=== PATIENT | female | born 1975 | race Caucasian/White ===

== ENCOUNTER 2019-02-17 14:46 | Inpatient (IN) | payer MEDICAID ==
[2019-02-17] MEDS ORDERED: Ketorolac 30 MG/ML SDV IM ONE (15:10)
[2019-02-17] MEDS ORDERED: Ondansetron 4 MG Tab.DIS PO ONE (15:10)
[2019-02-17] MEDS ORDERED: Sodium Chloride 0.9% 10 ML Syringe FLUSH PRN ×2 (15:12→15:48)
[2019-02-17] MEDS ORDERED: Ketorolac 30 MG/ML SDV IVPUSH ONE (15:12)
[2019-02-17] MEDS ORDERED: Ondansetron 4 MG/2 ML SDV IVPUSH ONE (15:12)
[2019-02-17] MEDS ORDERED: Sodium Chloride 0.9% 1,000 ML IV SCH (15:15)
[2019-02-17] MEDS ORDERED: fentaNYL 100 MCG/2 ML SDV IVPUSH ONE ×3 (15:39→17:24)
[2019-02-17] MEDS: Piperacillin/Tazobactam 3.375 GM in Sodium Chloride 0.9% 50 ML IV SCH ×2 (16:08→21:45)
--- NOTE | 2019-02-17 16:50 | CRLCT ---
INDICATION: Right flank pain TECHNIQUE: CT abdomen and pelvis without contrast. COMPARISON: None FINDINGS: Lower chest: Unremarkable. Liver: Unremarkable. Spleen: Unremarkable. Pancreas: Unremarkable. Gallbladder and bile ducts: Cholecystectomy Kidneys: Unremarkable. No kidney or ureteral stones and no hydronephrosis. Adrenal glands: Unremarkable. GI tract: Diffuse colonic fecal retention. Appendix is not definitely demonstrated. Vascular structures: Unremarkable. Lymph nodes: Unremarkable. Miscellaneous: Unremarkable. No free air or significant free fluid. Pelvic Organs: Unremarkable. Bones: Unremarkable for age. IMPRESSION: No urinary tract stones or hydronephrosis. Diffuse colonic fecal retention. Cholecystectomy. Dictated by Carlos Staples MD @ 02/17/2019 4:48:32 PM Please note that all CT scans at this facility use dose modulation, iterative reconstruction, and/or weight-based dosing when appropriate to reduce radiation dose to as low as reasonably achievable. Dictated by: Carlos Staples MD @ 02/17/2019 16:48:40 (Electronically Signed)
[2019-02-17] MEDS ORDERED: Acetaminophen 325 MG Tab PO ONE (17:03)
[2019-02-17] MEDS ORDERED: Lactated Ringers 1,000 ML IV ONE (17:04)
--- NOTE | 2019-02-17 17:04 | EDM.PDOC ---
ED HPI GENERAL MEDICAL PROBLEM - General Chief Complaint: Flank Pain Stated Complaint: MAYBE A KIDNEY STONE Time Seen by Provider: 02/17/19 15:07 Source of Information: Reports: Patient, Family, RN Notes Reviewed History Limitations: Reports: No Limitations - History of Present Illness INITIAL COMMENTS - FREE TEXT/NARRATIVE: 43-year-old female presents the emergency department with a complaint of right flank pain, she states a couple days prior she was having urinary tract symptomology consistent with an infection which she has had in the past unfortunately due to the weather she did not seek treatment, then this morning increasing pain in the right flank as well as fever. She has had kidney stones in the past concerned this may be another kidney stone Flank Pain Score (Numeric/FACES): 10 - Related Data Allergies Allergy/AdvReac Type Severity Reaction Status Date / Time Sulfa (Sulfonamide Allergy Other Verified 02/17/19 16:11 Antibiotics) Home Meds: Home Meds Cetirizine [ZyrTEC] 10 mg PO DAILY PRN 11/27/15 [History] Norgestimate-Ethinyl Estradiol [Ortho Tri-Cyclen 28 Tablet] 1 tab PO DAILY 11/26 [History] SUMAtriptan [Imitrex] 100 mg PO DAILY PRN 11/27/15 [History] Topiramate [Topamax] 300 mg PO BEDTIME 11/27/15 [History] buPROPion [Wellbutrin XL] 300 mg PO DAILY 11/27/15 [History] HYDROmorphone HCl [Dilaudid] 2 mg PO Q4H PRN #30 tablet 11/28/15 [Rx] Ondansetron [Zofran ODT] 4 mg PO Q4H PRN #12 tab.dis 11/28/15 [Rx] DULoxetine [Cymbalta] 30 mg PO DAILY 02/17/19 [History] Montelukast [Singulair] 10 mg PO DAILY 02/17/19 [History] Past Medical History HEENT History: Reports: Allergic Rhinitis, Other (See Below) Other HEENT History: migraines, history of 2 concussions Respiratory History: Reports: Asthma Genitourinary History: Reports: Renal Calculus Musculoskeletal History: Reports: Other (See Below) Other Musculoskeletal History: stress fractures on ankles and knees Neurological History: Reports: Migraines Psychiatric History: Reports: Depression - Infectious Disease History Infectious Disease History: Reports: Chicken Pox - Past Surgical History GI Surgical History: Reports: Appendectomy, Cholecystectomy Social & Family History - Tobacco Use Smoking Status *Q: Never Smoker - Caffeine Use Caffeine Use: Reports: Coffee, Soda, Tea - Recreational Drug Use Recreational Drug Use: No ED ROS GENERAL - Review of Systems Review Of Systems: See Below Constitutional: Reports: Fever, Chills HEENT: Reports: No Symptoms Respiratory: Reports: No Symptoms Cardiovascular: Reports: No Symptoms GI/Abdominal: Reports: Nausea, Vomiting : Reports: Dysuria, Flank Pain Musculoskeletal: Reports: No Symptoms Skin: Reports: No Symptoms Neurological: Reports: No Symptoms ED EXAM, GI/ABD - Physical Exam Exam: See Below Exam Limited By: No Limitations General Appearance: Alert, Mild Distress Respiratory/Chest: No Respiratory Distress, Lungs Clear, Normal Breath Sounds, No Accessory Muscle Use, Chest Non-Tender Cardiovascular: Regular Rate, Rhythm, No Murmur GI/Abdominal Exam: Soft, Non-Tender Back Exam: Normal Inspection, Full Range of Motion, CVA Tenderness (R). No: Decreased Range of Motion, Muscle Spasm, Paraspinal Tenderness Course - Vital Signs Last Recorded V/S: Last Vital Signs Temp 101.9 F H 02/17/19 15:07 Pulse 114 H 02/17/19 16:44 Resp 16 02/17/19 15:07 BP 102/74 02/17/19 16:44 Pulse Ox 100 02/17/19 15:07 - Orders/Labs/Meds Orders: Active Orders 24 hr Category Date Time Status Peripheral IV Care [RC] . DIRECTED Care 02/17/19 15:12 Active Peripheral IV Care [RC] . DIRECTED Care 02/17/19 15:48 Active Vital Signs [RC] Q1H Care 02/17/19 15:47 Active CULTURE BLOOD [BC] Urgent Lab 02/17/19 16:45 Received CULTURE BLOOD [BC] Urgent Lab 02/17/19 16:50 Received CULTURE URINE [RM] Stat Lab 02/17/19 17:00 Received CULTURE URINE [RM] Urgent Lab 02/17/19 17:23 Stop Req Lactated Ringers [Ringers, Lactated] 1,000 ml Med 02/17/19 17:04 Active IV BOLUS Piperacillin/Tazobactam [Zosyn] 3.375 gm Med 02/17/19 16:00 Active Sodium Chloride 0.9% [Normal Saline] 50 ml IV Q6H Sodium Chloride 0.9% [Normal Saline] 1,000 ml Med 02/17/19 15:15 Active IV ASDIRECTED Sodium Chloride 0.9% [Saline Flush] Med 02/17/19 15:12 Active 10 ml FLUSH ASDIRECTED PRN Sodium Chloride 0.9% [Saline Flush] Med 02/17/19 15:48 Active 10 ml FLUSH ASDIRECTED PRN Blood Culture x2 Reflex Set [OM.PC] Urgent Oth 02/17/19 15:47 Ordered Peripheral IV Insertion Adult [OM.PC] Urgent Oth 02/17/19 15:12 Ordered Peripheral IV Insertion Adult [OM.PC] Urgent Oth 02/17/19 15:48 Ordered Medication Orders Sodium Chloride (Normal Saline) 1,000 mls @ 999 mls/hr IV ASDIRECTED MAGDIEL Last Admin: 02/17/19 15:20 Dose: 999 mls/hr Piperacillin Sod/Tazobactam (Sod 3.375 gm/ Sodium Chloride) 50 mls @ 100 mls/ hr IV Q6H [facility] Last Admin: 02/17/19 16:08 Dose: 100 mls/hr Lactated Ringer's (Ringers, Lactated) 1,000 mls @ 999 mls/hr IV BOLUS ONE Stop: 02/17/19 18:04 Last Admin: 02/17/19 17:06 Dose: 999 mls/hr Sodium Chloride (Saline Flush) 10 ml FLUSH ASDIRECTED PRN PRN Reason: Keep Vein Open Last Admin: 02/17/19 15:20 Dose: 10 ml Sodium Chloride (Saline Flush) 10 ml FLUSH ASDIRECTED PRN PRN Reason: Keep Vein Open Labs: Laboratory Tests 02/17/19 02/17/19 02/17/19 Range/Units 15:10 15:10 15:10 WBC 8.2 (4.5-11.0) K/uL RBC 4.69 (3.30-5.50) M/uL Hgb 13.2 D (12.0-15.0) g/dL Hct 40.1 (36.0-48.0) % MCV 86 (80-98) fL MCH 28 (27-31) pg MCHC 33 (32-36) % Plt Count 218 (150-400) K/uL Neut % (Auto) 96 H (36-66) % Lymph % (Auto) 4 L (24-44) % [place] % (Auto) 0 L (2-6) % Eos % (Auto) 0 L (2-4) % Baso % (Auto) 0 (0-1) % Sodium 137 L (140-148) mmol/L Potassium 3.2 L (3.6-5.2) mmol/L Chloride 104 (100-108) mmol/L Carbon Dioxide 20 L (21-32) mmol/L Anion Gap 16.2 H (5.0-14.0) mmol/L BUN 13 (7-18) mg/dL Creatinine 1.5 H (0.6-1.0) mg/dL Est Cr Clr Drug Dosing 33.04 mL/min Estimated GFR (MDRD) 38 L (>60) Glucose 95 (74-106) mg/dL Lactic Acid (0.4-2.0) mmol/L Calcium 8.6 (8.5-10.1) mg/dL Total Bilirubin (0.2-1.0) mg/dL Direct Bilirubin (0.0-0.2) mg/dL Indirect Bilirubin AST (15-37) U/L ALT (12-78) U/L Alkaline Phosphatase (46-116) U/L C-Reactive Protein (0.0-0.3) mg/dL Total Protein (6.4-8.2) g/dL Albumin (3.4-5.0) g/dL Globulin (2.3-3.5) g/dL Albumin/Globulin Ratio (1.2-2.2) Procalcitonin ng/mL HCG, Qual Negative Urine Color (YELLOW) Urine Appearance (CLEAR) Urine pH (5.0-8.0) Ur Specific [place] (1.008-1.030) Urine Protein (NEGATIVE) mg/dL Urine Glucose (UA) (NEGATIVE) mg/dL Urine Ketones (NEGATIVE) mg/dL Urine Occult Blood (NEGATIVE) Urine Nitrite (NEGATIVE) Urine Bilirubin (NEGATIVE) Urine Urobilinogen (0.2-1.0) EU/dL Ur Leukocyte Esterase (NEGATIVE) Urine RBC (0-5) Urine WBC (0-5) Ur Epithelial Cells Amorphous Sediment Urine Bacteria Urine Mucus 02/17/19 02/17/19 02/17/19 Range/Units 15:10 15:10 15:10 WBC (4.5-11.0) K/uL RBC (3.30-5.50) M/uL Hgb (12.0-15.0) g/dL Hct (36.0-48.0) % MCV (80-98) fL MCH (27-31) pg MCHC (32-36) % Plt Count (150-400) K/uL Neut % (Auto) (36-66) % Lymph % (Auto) (24-44) % [place] % (Auto) (2-6) % Eos % (Auto) (2-4) % Baso % (Auto) (0-1) % Sodium (140-148) mmol/L Potassium (3.6-5.2) mmol/L Chloride (100-108) mmol/L Carbon Dioxide (21-32) mmol/L Anion Gap (5.0-14.0) mmol/L BUN (7-18) mg/dL Creatinine (0.6-1.0) mg/dL Est Cr Clr Drug Dosing mL/min Estimated GFR (MDRD) (>60) Glucose (74-106) mg/dL Lactic Acid 2.0 (0.4-2.0) mmol/L Calcium (8.5-10.1) mg/dL Total Bilirubin (0.2-1.0) mg/dL Direct Bilirubin (0.0-0.2) mg/dL Indirect Bilirubin AST (15-37) U/L ALT (12-78) U/L Alkaline Phosphatase (46-116) U/L C-Reactive Protein 0.12 (0.0-0.3) mg/dL Total Protein (6.4-8.2) g/dL Albumin (3.4-5.0) g/dL Globulin (2.3-3.5) g/dL Albumin/Globulin Ratio (1.2-2.2) Procalcitonin 7.55 H* ng/mL HCG, Qual Urine Color (YELLOW) Urine Appearance (CLEAR) Urine pH (5.0-8.0) Ur Specific [place] (1.008-1.030) Urine Protein (NEGATIVE) mg/dL Urine Glucose (UA) (NEGATIVE) mg/dL Urine Ketones (NEGATIVE) mg/dL Urine Occult Blood (NEGATIVE) Urine Nitrite (NEGATIVE) Urine Bilirubin (NEGATIVE) Urine Urobilinogen (0.2-1.0) EU/dL Ur Leukocyte Esterase (NEGATIVE) Urine RBC (0-5) Urine WBC (0-5) Ur Epithelial Cells Amorphous Sediment Urine Bacteria Urine Mucus 02/17/19 02/17/19 Range/Units 15:10 16:48 WBC (4.5-11.0) K/uL RBC (3.30-5.50) M/uL Hgb (12.0-15.0) g/dL Hct (36.0-48.0) % MCV (80-98) fL MCH (27-31) pg MCHC (32-36) % Plt Count (150-400) K/uL Neut % (Auto) (36-66) % Lymph % (Auto) (24-44) % [place] % (Auto) (2-6) % Eos % (Auto) (2-4) % Baso % (Auto) (0-1) % Sodium (140-148) mmol/L Potassium (3.6-5.2) mmol/L Chloride (100-108) mmol/L Carbon Dioxide (21-32) mmol/L Anion Gap (5.0-14.0) mmol/L BUN (7-18) mg/dL Creatinine (0.6-1.0) mg/dL Est Cr Clr Drug Dosing mL/min Estimated GFR (MDRD) (>60) Glucose (74-106) mg/dL Lactic Acid (0.4-2.0) mmol/L Calcium (8.5-10.1) mg/dL Total Bilirubin 0.4 (0.2-1.0) mg/dL Direct Bilirubin 0.12 (0.0-0.2) mg/dL Indirect Bilirubin 0.28 AST 35 (15-37) U/L ALT 22 (12-78) U/L Alkaline Phosphatase 113 (46-116) U/L C-Reactive Protein (0.0-0.3) mg/dL Total Protein 7.1 (6.4-8.2) g/dL Albumin 3.5 (3.4-5.0) g/dL Globulin 3.6 H (2.3-3.5) g/dL Albumin/Globulin Ratio 1.0 L (1.2-2.2) Procalcitonin ng/mL HCG, Qual Urine Color Yellow (YELLOW) Urine Appearance Cloudy A (CLEAR) Urine pH 5.5 (5.0-8.0) Ur Specific [place] 1.015 (1.008-1.030) Urine Protein Negative (NEGATIVE) mg/dL Urine Glucose (UA) Normal (NEGATIVE) mg/dL Urine Ketones Negative (NEGATIVE) mg/dL Urine Occult Blood Negative (NEGATIVE) Urine Nitrite Positive H (NEGATIVE) Urine Bilirubin Negative (NEGATIVE) Urine Urobilinogen 0.2 (0.2-1.0) EU/dL Ur Leukocyte Esterase Negative (NEGATIVE) Urine RBC 0-5 (0-5) Urine WBC 0-5 (0-5) Ur Epithelial Cells Few Amorphous Sediment Not seen Urine Bacteria Many Urine Mucus Not seen Meds: Medications Generic Name Dose Route Start Last Admin Trade Name Freq PRN Reason Stop Dose Admin Sodium Chloride 1,000 mls @ 999 mls/hr 02/17/19 15:15 02/17/19 15:20 Normal Saline IV 999 mls/hr ASDIRECTED MAGDIEL Administration Piperacillin Sod/Tazobactam 50 mls @ 100 mls/hr 02/17/19 16:00 02/17/19 16:08 Sod 3.375 gm/ Sodium Chloride IV 100 mls/hr Q6H MAGDIEL Administration Lactated Ringer's 1,000 mls @ 999 mls/hr 02/17/19 17:04 02/17/19 17:06 Ringers, Lactated IV 02/17/19 18:04 999 mls/hr BOLUS ONE Administration Sodium Chloride 10 ml 02/17/19 15:12 02/17/19 15:20 Saline Flush FLUSH 10 ml ASDIRECTED PRN Administration Keep Vein Open Sodium Chloride 10 ml 02/17/19 15:48 Saline Flush FLUSH ASDIRECTED PRN Keep Vein Open Discontinued Medications Generic Name Dose Route Start Last Admin Trade Name Freq PRN Reason Stop Dose Admin Acetaminophen 650 mg 02/17/19 17:03 Tylenol PO 02/17/19 17:04 NOW ONE Fentanyl 50 mcg 02/17/19 15:39 02/17/19 15:55 Sublimaze IVPUSH 02/17/19 15:40 25 mcg ONETIME ONE Administration Fentanyl 50 mcg 02/17/19 16:36 02/17/19 16:41 Sublimaze IVPUSH 02/17/19 16:37 50 mcg ONETIME ONE Administration Ketorolac Tromethamine 40 mg 02/17/19 15:10 02/17/19 15:21 Toradol IM 02/17/19 15:11 Not Given ONETIME ONE Ketorolac Tromethamine 30 mg 02/17/19 15:12 02/17/19 15:18 Toradol IVPUSH 02/17/19 15:13 30 mg ONETIME ONE Administration Ondansetron HCl 4 mg 02/17/19 15:10 02/17/19 15:21 Zofran Odt PO 02/17/19 15:11 Not Given ONETIME ONE Ondansetron HCl 4 mg 02/17/19 15:12 02/17/19 15:18 Zofran IVPUSH 02/17/19 15:13 4 mg ONETIME ONE Administration Departure - Departure Time of Disposition: 17:27 Disposition: Admitted As Inpatient 68 Condition: Fair Clinical Impression: Pyelonephritis - Discharge Information Referrals: PCP,None [Primary Care Provider] - Forms: ED Department Discharge - My Orders Last 24 Hours: My Active Orders 02/17/19 15:12 Peripheral IV Care [RC] . DIRECTED Sodium Chloride 0.9% [Saline Flush] 10 ml FLUSH ASDIRECTED PRN Peripheral IV Insertion Adult [OM.PC] Urgent 02/17/19 15:15 Sodium Chloride 0.9% [Normal Saline] 1,000 ml IV ASDIRECTED 02/17/19 15:47 Vital Signs [RC] Q1H Blood Culture x2 Reflex Set [OM.PC] Urgent 02/17/19 15:48 Peripheral IV Care [RC] . DIRECTED Sodium Chloride 0.9% [Saline Flush] 10 ml FLUSH ASDIRECTED PRN Peripheral IV Insertion Adult [OM.PC] Urgent 02/17/19 16:00 Piperacillin/Tazobactam [Zosyn] 3.375 gm Sodium Chloride 0.9% [Normal Saline] 50 ml IV Q6H 02/17/19 16:45 CULTURE BLOOD [BC] Urgent 02/17/19 16:50 CULTURE BLOOD [BC] Urgent 02/17/19 17:04 Lactated Ringers [Ringers, Lactated] 1,000 ml IV BOLUS 02/17/19 17:23 CULTURE URINE [RM] Urgent - Assessment/Plan Last 24 Hours: My Active Orders 02/17/19 15:12 Peripheral IV Care [RC] . DIRECTED Sodium Chloride 0.9% [Saline Flush] 10 ml FLUSH ASDIRECTED PRN Peripheral IV Insertion Adult [OM.PC] Urgent 02/17/19 15:15 Sodium Chloride 0.9% [Normal Saline] 1,000 ml IV ASDIRECTED 02/17/19 15:47 Vital Signs [RC] Q1H Blood Culture x2 Reflex Set [OM.PC] Urgent 02/17/19 15:48 Peripheral IV Care [RC] . DIRECTED Sodium Chloride 0.9% [Saline Flush] 10 ml FLUSH ASDIRECTED PRN Peripheral IV Insertion Adult [OM.PC] Urgent 02/17/19 16:00 Piperacillin/Tazobactam [Zosyn] 3.375 gm Sodium Chloride 0.9% [Normal Saline] 50 ml IV Q6H 02/17/19 16:45 CULTURE BLOOD [BC] Urgent 02/17/19 16:50 CULTURE BLOOD [BC] Urgent 02/17/19 17:04 Lactated Ringers [Ringers, Lactated] 1,000 ml IV BOLUS 02/17/19 17:23 CULTURE URINE [RM] Urgent Plan: Assessment Acuity = acute Site and laterality = right pyelonephritis concern for early sepsis Etiology = probable bacterial cause Manifestations = fever, hypotensive, tachycardia Location of injury = Home Lab values = CBC within normal limits potassium low at 3.2 consistent with hypokalemia creatinine elevated 1.5 consistent with acute renal failure stage G3 B lactic acid normal 2.0 CRP normal 0.12 pro calcitonin elevated 7.55 urinalysis positive for nitrates and many bacteria CT scan describes no acute process other than colonic stool Plan Call discussed case with hospitalist on-call at [phone] currently agreed to come and evaluate patient emergency department for admission, thus far she is received 2 L of fluids 3.375 g dose of Zosyn, blood cultures and urine cultures are pending This note was dictated using [employer] voice recognition software please call with any questions on syntax or grammar.
--- NOTE | 2019-02-17 17:56 | PCM.HP.2 ---
H&P History of Present Illness - General Date of Service: 02/17/19 Admit Problem/Dx: Admission Diagnosis/Problem Admission Diagnosis/Problem Pyelonephritis Source of Information: Patient, Family, Provider History Limitations: Reports: No Limitations - History of Present Illness Initial Comments - Free Text/Narative: CC: I've been better HPI: Cheryl presents to the emergency room today with progressive flank pain which is worse on the right than on the left. She first noticed symptoms about 2 days ago with initial symptoms consisting of increased urinary frequency followed by dysuria. Over the next 24 hours she developed subjective fevers and chills as well as mild pain in the right flank which later progressed to include left flank pain. Over the next 24 hours the pain progressed to become severe. She describes burning pain in both flanks but does not radiate. The pain seems to come and go in waves but never goes away. She has tried pain pills and muscle relaxers without much improvement. Pain seems to be steadily getting worse. Any sort of movement makes the pain worse. She has had similar but much less intense pain with a previous episode of pyelonephritis. She does not report any shortness of breath or chest pain. She has had some nausea in the past few hours but this improved with ondansetron. She has diffuse myalgias and decreased appetite. Oral intake has been poor the past 24 hours. Workup in the emergency room was suggestive of pyelonephritis with sepsis. There is no evidence for kidney stones. She has received her 30 mL/kg bolus and broad-spectrum antibiotics. Cultures have been obtained. Heart rate is improving with IV fluids. She will be admitted for further management. Flank Pain Score (Numeric/FACES): 10 - Related Data Allergies/Adverse Reactions: Allergies Allergy/AdvReac Type Severity Reaction Status Date / Time Sulfa (Sulfonamide Allergy Other Verified 02/17/19 16:11 Antibiotics) Home Medications: Home Meds Cetirizine [ZyrTEC] 10 mg PO DAILY PRN 11/27/15 [History] Norgestimate-Ethinyl Estradiol [Ortho Tri-Cyclen 28 Tablet] 1 tab PO DAILY 11/26 [History] SUMAtriptan [Imitrex] 100 mg PO DAILY PRN 11/27/15 [History] Topiramate [Topamax] 300 mg PO BEDTIME 09/10/16 [History] buPROPion [Wellbutrin XL] 300 mg PO DAILY 11/27/15 [History] HYDROmorphone HCl [Dilaudid] 2 mg PO Q4H PRN #30 tablet 11/28/15 [Rx] Ondansetron [Zofran ODT] 4 mg PO Q4H PRN #12 tab.dis 11/28/15 [Rx] DULoxetine [Cymbalta] 30 mg PO DAILY 02/17/19 [History] Montelukast [Singulair] 10 mg PO DAILY 02/17/19 [History] Past Medical History HEENT History: Reports: Allergic Rhinitis, Other (See Below) Other HEENT History: migraines, history of 2 concussions Respiratory History: Reports: Asthma Genitourinary History: Reports: Renal Calculus Musculoskeletal History: Reports: Other (See Below) Other Musculoskeletal History: stress fractures on ankles and knees Neurological History: Reports: Migraines Psychiatric History: Reports: Depression - Infectious Disease History Infectious Disease History: Reports: Chicken Pox - Past Surgical History GI Surgical History: Reports: Appendectomy, Cholecystectomy Social & Family History - Family History Neurological: Reports: Cerebral Aneurysms - Tobacco Use Smoking Status *Q: Never Smoker - Caffeine Use Caffeine Use: Reports: Coffee, Soda, Tea - Alcohol Use Alcohol Use History: No - Recreational Drug Use Recreational Drug Use: No H&P Review of Systems - Review of Systems: Review Of Systems: See Below Free Text/Narrative: A complete 12 point review of systems was obtained. Pertinent positives and negatives are noted in the history of present illness. All other systems were reviewed and were negative except as noted. Exam - Exam Exam: See Below - Vital Signs Vital Signs: Last Vital Signs Temp 37.7 C 02/17/19 17:38 Pulse 113 H 02/17/19 17:38 Resp 14 02/17/19 17:38 BP 99/68 02/17/19 17:38 Pulse Ox 100 02/17/19 17:38 Weight: 42.4 kg - Exam Quality Assessment: No: Supplemental Oxygen General: Alert, Oriented, Cooperative, Moderate Distress HEENT: Conjunctiva Clear. No: Mucosa Moist & Stem (dry), Scleral Icterus Neck: Supple, Trachea Midline. No: Lymphadenopathy Lungs: Clear to Auscultation, Normal Respiratory Effort Cardiovascular: Regular Rhythm, Tachycardia. No: Systolic Murmur GI/Abdominal Exam: Normal Bowel Sounds, Soft, No Distention, Tender (mild lower abdomen ) Back Exam: CVA Tenderness (R), CVA Tenderness (L). No: Vertebral Tenderness Extremities: No Pedal Edema. No: Joint Swelling, Increased Warmth Skin: Warm, Dry Neuro Extensive - Mental Status: Alert, Oriented x3, Nl Response to Commands Neuro Extensive - Motor, Sensory, Reflexes: No: Dysarthria, Abnormal Motor, Tremor Psychiatric: Alert, Normal Affect - Patient Data Lab Results Last 24 hrs: Laboratory Results - last 24 hr 02/17/19 02/17/19 02/17/19 Range/Units 15:10 15:10 15:10 WBC 8.2 (4.5-11.0) K/uL RBC 4.69 (3.30-5.50) M/uL Hgb 13.2 D (12.0-15.0) g/dL Hct 40.1 (36.0-48.0) % MCV 86 (80-98) fL MCH 28 (27-31) pg MCHC 33 (32-36) % Plt Count 218 (150-400) K/uL Neut % (Auto) 96 H (36-66) % Lymph % (Auto) 4 L (24-44) % Clayton % (Auto) 0 L (2-6) % Eos % (Auto) 0 L (2-4) % Baso % (Auto) 0 (0-1) % Sodium 137 L (140-148) mmol/L Potassium 3.2 L (3.6-5.2) mmol/L Chloride 104 (100-108) mmol/L Carbon Dioxide 20 L (21-32) mmol/L Anion Gap 16.2 H (5.0-14.0) mmol/L BUN 13 (7-18) mg/dL Creatinine 1.5 H (0.6-1.0) mg/dL Est Cr Clr Drug Dosing 33.04 mL/min Estimated GFR (MDRD) 38 L (>60) Glucose 95 (74-106) mg/dL Lactic Acid (0.4-2.0) mmol/L Calcium 8.6 (8.5-10.1) mg/dL Total Bilirubin (0.2-1.0) mg/dL Direct Bilirubin (0.0-0.2) mg/dL Indirect Bilirubin AST (15-37) U/L ALT (12-78) U/L Alkaline Phosphatase (46-116) U/L C-Reactive Protein (0.0-0.3) mg/dL Total Protein (6.4-8.2) g/dL Albumin (3.4-5.0) g/dL Globulin (2.3-3.5) g/dL Albumin/Globulin Ratio (1.2-2.2) Procalcitonin ng/mL HCG, Qual Negative Urine Color (YELLOW) Urine Appearance (CLEAR) Urine pH (5.0-8.0) Ur Specific Barnum (1.008-1.030) Urine Protein (NEGATIVE) mg/dL Urine Glucose (UA) (NEGATIVE) mg/dL Urine Ketones (NEGATIVE) mg/dL Urine Occult Blood (NEGATIVE) Urine Nitrite (NEGATIVE) Urine Bilirubin (NEGATIVE) Urine Urobilinogen (0.2-1.0) EU/dL Ur Leukocyte Esterase (NEGATIVE) Urine RBC (0-5) Urine WBC (0-5) Ur Epithelial Cells Amorphous Sediment Urine Bacteria Urine Mucus 02/17/19 02/17/19 02/17/19 Range/Units 15:10 15:10 15:10 WBC (4.5-11.0) K/uL RBC (3.30-5.50) M/uL Hgb (12.0-15.0) g/dL Hct (36.0-48.0) % MCV (80-98) fL MCH (27-31) pg MCHC (32-36) % Plt Count (150-400) K/uL Neut % (Auto) (36-66) % Lymph % (Auto) (24-44) % Clayton % (Auto) (2-6) % Eos % (Auto) (2-4) % Baso % (Auto) (0-1) % Sodium (140-148) mmol/L Potassium (3.6-5.2) mmol/L Chloride (100-108) mmol/L Carbon Dioxide (21-32) mmol/L Anion Gap (5.0-14.0) mmol/L BUN (7-18) mg/dL Creatinine (0.6-1.0) mg/dL Est Cr Clr Drug Dosing mL/min Estimated GFR (MDRD) (>60) Glucose (74-106) mg/dL Lactic Acid 2.0 (0.4-2.0) mmol/L Calcium (8.5-10.1) mg/dL Total Bilirubin (0.2-1.0) mg/dL Direct Bilirubin (0.0-0.2) mg/dL Indirect Bilirubin AST (15-37) U/L ALT (12-78) U/L Alkaline Phosphatase (46-116) U/L C-Reactive Protein 0.12 (0.0-0.3) mg/dL Total Protein (6.4-8.2) g/dL Albumin (3.4-5.0) g/dL Globulin (2.3-3.5) g/dL Albumin/Globulin Ratio (1.2-2.2) Procalcitonin 7.55 H* ng/mL HCG, Qual Urine Color (YELLOW) Urine Appearance (CLEAR) Urine pH (5.0-8.0) Ur Specific Barnum (1.008-1.030) Urine Protein (NEGATIVE) mg/dL Urine Glucose (UA) (NEGATIVE) mg/dL Urine Ketones (NEGATIVE) mg/dL Urine Occult Blood (NEGATIVE) Urine Nitrite (NEGATIVE) Urine Bilirubin (NEGATIVE) Urine Urobilinogen (0.2-1.0) EU/dL Ur Leukocyte Esterase (NEGATIVE) Urine RBC (0-5) Urine WBC (0-5) Ur Epithelial Cells Amorphous Sediment Urine Bacteria Urine Mucus 02/17/19 02/17/19 Range/Units 15:10 16:48 WBC (4.5-11.0) K/uL RBC (3.30-5.50) M/uL Hgb (12.0-15.0) g/dL Hct (36.0-48.0) % MCV (80-98) fL MCH (27-31) pg MCHC (32-36) % Plt Count (150-400) K/uL Neut % (Auto) (36-66) % Lymph % (Auto) (24-44) % Clayton % (Auto) (2-6) % Eos % (Auto) (2-4) % Baso % (Auto) (0-1) % Sodium (140-148) mmol/L Potassium (3.6-5.2) mmol/L Chloride (100-108) mmol/L Carbon Dioxide (21-32) mmol/L Anion Gap (5.0-14.0) mmol/L BUN (7-18) mg/dL Creatinine (0.6-1.0) mg/dL Est Cr Clr Drug Dosing mL/min Estimated GFR (MDRD) (>60) Glucose (74-106) mg/dL Lactic Acid (0.4-2.0) mmol/L Calcium (8.5-10.1) mg/dL Total Bilirubin 0.4 (0.2-1.0) mg/dL Direct Bilirubin 0.12 (0.0-0.2) mg/dL Indirect Bilirubin 0.28 AST 35 (15-37) U/L ALT 22 (12-78) U/L Alkaline Phosphatase 113 (46-116) U/L C-Reactive Protein (0.0-0.3) mg/dL Total Protein 7.1 (6.4-8.2) g/dL Albumin 3.5 (3.4-5.0) g/dL Globulin 3.6 H (2.3-3.5) g/dL Albumin/Globulin Ratio 1.0 L (1.2-2.2) Procalcitonin ng/mL HCG, Qual Urine Color Yellow (YELLOW) Urine Appearance Cloudy A (CLEAR) Urine pH 5.5 (5.0-8.0) Ur Specific Barnum 1.015 (1.008-1.030) Urine Protein Negative (NEGATIVE) mg/dL Urine Glucose (UA) Normal (NEGATIVE) mg/dL Urine Ketones Negative (NEGATIVE) mg/dL Urine Occult Blood Negative (NEGATIVE) Urine Nitrite Positive H (NEGATIVE) Urine Bilirubin Negative (NEGATIVE) Urine Urobilinogen 0.2 (0.2-1.0) EU/dL Ur Leukocyte Esterase Negative (NEGATIVE) Urine RBC 0-5 (0-5) Urine WBC 0-5 (0-5) Ur Epithelial Cells Few Amorphous Sediment Not seen Urine Bacteria Many Urine Mucus Not seen Result Diagrams: 02/17/19 15:10 02/17/19 15:10 Imaging Impressions Last 24 hrs: CT scan of the abdomen and pelvis without contrast - images were personally reviewed - there was no evidence for kidney or ureteral stones. No evidence for hydronephrosis. Moderate stool throughout the colon was noted. Evaluation of the kidneys was limited because there is no IV contrast. No other pathology. She has had an appendectomy and cholecystectomy. *Q Meaningful Use (ADM) - VTE Risk Assess *Q Each Risk Factor Represents 1 Point: Age 41 - 59 years, Sepsis Total Score 1 Point Risk Factors: 2 Each Risk Factor Represents 2 Points: None Total Score 2 Point Risk Factors: 0 Each Risk Factor Represents 3 Points: None Total Score 3 Point Risk Factors: 0 Each Risk Factor Represents 5 Points: None Total Score 5 Point Risk Factors: 0 Venous Thromboembolism Risk Factor Score *Q: 2 - Problem List (1) Pyelonephritis SNOMED Code(s): 38855121 ICD Code: N12 - TUBULO-INTERSTITIAL NEPHRITIS, NOT SPCF ACUTE OR CHRONIC Status: Acute Current Visit: Yes (2) Sepsis SNOMED Code(s): 64423565 ICD Code: A41.9 - SEPSIS, UNSPECIFIED ORGANISM Status: Acute Current Visit: Yes Qualifiers: Sepsis acute organ dysfunction status: with acute organ dysfunction Severe sepsis acute organ dysfunction type: acute renal failure Acute renal failure type: with acute tubular necrosis Severe sepsis shock status: without septic shock (3) Acute kidney injury SNOMED Code(s): 07935345, 19770034 ICD Code: N17.9 - ACUTE KIDNEY FAILURE, UNSPECIFIED Status: Acute Current Visit: Yes (4) Hypokalemia SNOMED Code(s): 89242068 ICD Code: E87.6 - HYPOKALEMIA Status: Acute Current Visit: Yes Problem List Initiated/Reviewed/Updated: Yes Orders Last 24hrs: Active Orders 24 hr Category Date Time Status Patient Status Manage Transfer [TRANSFER] Routine ADT 02/17/19 17:46 Ordered Peripheral IV Care [RC] . DIRECTED Care 02/17/19 15:12 Active Peripheral IV Care [RC] . DIRECTED Care 02/17/19 15:48 Active Vital Signs [RC] Q1H Care 02/17/19 15:47 Active CULTURE BLOOD [BC] Urgent Lab 02/17/19 16:45 Received CULTURE BLOOD [BC] Urgent Lab 02/17/19 16:50 Received CULTURE URINE [RM] Stat Lab 02/17/19 17:00 Received Lactated Ringers [Ringers, Lactated] 1,000 ml Med 02/17/19 17:04 Active IV BOLUS Piperacillin/Tazobactam [Zosyn] 3.375 gm Med 02/17/19 16:00 Active Sodium Chloride 0.9% [Normal Saline] 50 ml IV Q6H Sodium Chloride 0.9% [Normal Saline] 1,000 ml Med 02/17/19 15:15 Active IV ASDIRECTED Sodium Chloride 0.9% [Saline Flush] Med 02/17/19 15:12 Active 10 ml FLUSH ASDIRECTED PRN Sodium Chloride 0.9% [Saline Flush] Med 02/17/19 15:48 Active 10 ml FLUSH ASDIRECTED PRN Blood Culture x2 Reflex Set [OM.PC] Urgent Oth 02/17/19 15:47 Ordered Peripheral IV Insertion Adult [OM.PC] Urgent Oth 02/17/19 15:12 Ordered Peripheral IV Insertion Adult [OM.PC] Urgent Oth 02/17/19 15:48 Ordered Resuscitation Status Routine Resus Stat 02/17/19 17:47 Ordered Medication Orders Sodium Chloride (Normal Saline) 1,000 mls @ 999 mls/hr IV ASDIRECTED [facility] Last Admin: 02/17/19 15:20 Dose: 999 mls/hr Piperacillin Sod/Tazobactam (Sod 3.375 gm/ Sodium Chloride) 50 mls @ 100 mls/ hr IV Q6H [facility] Last Admin: 02/17/19 16:08 Dose: 100 mls/hr Lactated Ringer's (Ringers, Lactated) 1,000 mls @ 999 mls/hr IV BOLUS ONE Stop: 02/17/19 18:04 Last Admin: 02/17/19 17:06 Dose: 999 mls/hr Sodium Chloride (Saline Flush) 10 ml FLUSH ASDIRECTED PRN PRN Reason: Keep Vein Open Last Admin: 02/17/19 15:20 Dose: 10 ml Sodium Chloride (Saline Flush) 10 ml FLUSH ASDIRECTED PRN PRN Reason: Keep Vein Open Assessment/Plan Comment:: ASSESSMENT AND PLAN - Acute pyelonephritis with sepsis - evidence for sepsis includes tachycardia, underlying hypotension and acute kidney injury. Cultures were obtained and broad -spectrum antibiotics administered. 30 mL/kg bolus of lactated Ringer's has been administered. She is having severe pain because of infection. She has a significant elevation of the pro-calcitonin but her lactic acid level is normal. -Continue broad-spectrum antibiotic coverage with Pip/Tazo -IV fluids overnight -Pain control -Follow-up cultures Acute kidney injury - probably combination of sepsis and poor intake. I would anticipate this will improve with hydration and infection management. -Fluids as above with repeat labs in the morning Hypokalemia - difficulty with nausea so oral routes will not be effective at this time. -40 mEq of IV potassium over the next 4 hours -Repeat labs in the morning Maintenance issues - - DVT prophylaxis - mechanical - GI prophylaxis - not indicated - Nutrition - regular diet as tolerated - Mercer catheter - not indicated CODE STATUS - full code Admission justification - This patient will be admitted for inpatient services and is medically appropriate meeting medical necessity for inpatient admission as outlined in my documentation. I reasonably expect the patient will require inpatient services that span a period time over 2 midnights. I reasonably expect this patient to be discharged or transferred within 96 hours after admission to the [facility]. Disposition - I would anticipate discharge home after the hospital stay Primary care physician - Kasie Lemus M.D. - Mortality Measure Prognosis:: Good
[2019-02-17] MEDS ORDERED: Ondansetron 4 MG/2 ML SDV IV PRN (18:34)
[2019-02-17] MEDS ORDERED: Acetaminophen 325 MG Tab PO PRN (18:34)
[2019-02-17] MEDS ORDERED: Potassium Chloride 20 MEQ, Lidocaine 1% 2 ML in Premix Bag 1 BAG IV SCH (18:34)
[2019-02-17] MEDS ORDERED: Magnesium Hydroxide 400 MG/5 ML Susp 30 ML Cup PO PRN (18:34)
[2019-02-17] MEDS ORDERED: Ketorolac 30 MG/ML SDV IVPUSH PRN (18:34)
[2019-02-17] MEDS ORDERED: HYDROmorphone 1 MG/ML Syringe IVPUSH PRN (18:34)
[2019-02-17] MEDS ORDERED: Ondansetron 4 MG Tab.DIS PO PRN (18:34)
[2019-02-17] MEDS ORDERED: Cetirizine 10 MG Tab PO PRN (18:34)
[2019-02-17] MEDS: LORazepam 2 MG/ML SDV IVPUSH PRN ×2 (19:49→23:56)
[2019-02-17] MEDS: Sodium Chloride 0.9% 1,000 ML IV SCH (19:58)
[2019-02-17] MEDS ORDERED: FLU Vacc QS2019-20(6MOS+)/PF 60 MCG/0.5 ML SYRINGE IM ONE (20:00)
[2019-02-17] MEDS: Potassium Chloride 20 MEQ in Premix Bag 1 BAG IV SCH ×2 (20:23→23:05)
[2019-02-17] MEDS ORDERED: Sodium Chloride 0.9% 500 ML IV ONE (21:13)
[2019-02-17] MEDS: Lactobacillus Rhamnosus GG (Probiotic) Cap PO SCH (21:51)
[2019-02-17] MEDS: HYDROmorphone 2 MG Tab PO PRN (22:47)
[2019-02-17] MEDS ORDERED: Topiramate 25 MG Tab ONE (23:07)
[2019-02-17] MEDS: Topiramate 100 MG Tab PO SCH (23:10)
[2019-02-18] MEDS: Piperacillin/Tazobactam 3.375 GM in Sodium Chloride 0.9% 50 ML IV SCH (03:15)
[2019-02-18] MEDS: HYDROmorphone 2 MG Tab PO PRN ×3 (03:15→16:35)
[2019-02-18] MEDS: Sodium Chloride 0.9% 1,000 ML IV SCH ×2 (05:43→14:30)
[2019-02-18] MEDS ORDERED: Sodium Chloride 0.9% 500 ML IV ONE (06:28)
[2019-02-18] MEDS ORDERED: NORGESTIMATE ETHINYL ESTRADIOL PO SCH (09:00)
[2019-02-18] MEDS ORDERED: Hydrocortisone Sodium Succinate 100 MG/2 ML SDV IVPUSH ONE (09:00)
[2019-02-18] MEDS: Piperacillin/Tazobactam/Dext 3.375 GM in Premix Bag 1 BAG IV SCH ×3 (09:20→21:49)
[2019-02-18] MEDS: Lactobacillus Rhamnosus GG (Probiotic) Cap PO SCH ×2 (09:23→21:45)
[2019-02-18] MEDS: buPROPion 150 MG Tab.ER PO SCH (09:23)
[2019-02-18] MEDS: DULoxetine 30 MG Cap PO SCH (09:23)
[2019-02-18] MEDS: Montelukast 10 MG Tab PO SCH (09:24)
[2019-02-18] MEDS: LORazepam 2 MG/ML SDV IVPUSH PRN ×2 (09:35→19:53)
--- NOTE | 2019-02-18 11:03 | PCM.PN ---
- General Info Date of Service: 02/18/19 Subjective Update: There were no acute events overnight following admission. She has not had any fevers. She has persistent but slightly improved pain in both of her flanks. She did have nausea and an episode of vomiting last night but was able to tolerate her breakfast. White count has jumped up to 21,000 today. Kidney function is better and potassium has improved to the normal range. Urine culture is growing a gram-negative fabi with identification pending. No complaints of shortness of breath this morning. Functional Status: Reports: Pain Controlled, Tolerating Diet - Review of Systems General: Denies: Fever - Patient Data Vitals - Most Recent: Last Vital Signs Temp 36.9 C 02/18/19 11:02 Pulse 95 02/18/19 11:02 Resp 16 02/18/19 11:02 BP 80/54 L 02/18/19 11:02 Pulse Ox 100 02/18/19 11:02 Weight - Most Recent: 40.823 kg I&O - Last 24 Hours: Intake & Output 02/17/19 02/18/19 02/18/19 22:59 06:59 14:59 Intake Total 750 1644 500 Output Total 300 1450 200 Balance 450 194 300 Lab Results Last 24 Hours: Laboratory Results - last 24 hr 02/17/19 02/17/19 02/17/19 Range/Units 15:10 15:10 15:10 WBC 8.2 (4.5-11.0) K/uL RBC 4.69 (3.30-5.50) M/uL Hgb 13.2 D (12.0-15.0) g/dL Hct 40.1 (36.0-48.0) % MCV 86 (80-98) fL MCH 28 (27-31) pg MCHC 33 (32-36) % Plt Count 218 (150-400) K/uL Neut % (Auto) 96 H (36-66) % Lymph % (Auto) 4 L (24-44) % Pratt % (Auto) 0 L (2-6) % Eos % (Auto) 0 L (2-4) % Baso % (Auto) 0 (0-1) % Sodium 137 L (140-148) mmol/L Potassium 3.2 L (3.6-5.2) mmol/L Chloride 104 (100-108) mmol/L Carbon Dioxide 20 L (21-32) mmol/L Anion Gap 16.2 H (5.0-14.0) mmol/L BUN 13 (7-18) mg/dL Creatinine 1.5 H (0.6-1.0) mg/dL Est Cr Clr Drug Dosing 33.04 mL/min Estimated GFR (MDRD) 38 L (>60) Glucose 95 (74-106) mg/dL Lactic Acid (0.4-2.0) mmol/L Calcium 8.6 (8.5-10.1) mg/dL Total Bilirubin (0.2-1.0) mg/dL Direct Bilirubin (0.0-0.2) mg/dL Indirect Bilirubin AST (15-37) U/L ALT (12-78) U/L Alkaline Phosphatase (46-116) U/L C-Reactive Protein (0.0-0.3) mg/dL Total Protein (6.4-8.2) g/dL Albumin (3.4-5.0) g/dL Globulin (2.3-3.5) g/dL Albumin/Globulin Ratio (1.2-2.2) Procalcitonin ng/mL HCG, Qual Negative Urine Color (YELLOW) Urine Appearance (CLEAR) Urine pH (5.0-8.0) Ur Specific [place] (1.008-1.030) Urine Protein (NEGATIVE) mg/dL Urine Glucose (UA) (NEGATIVE) mg/dL Urine Ketones (NEGATIVE) mg/dL Urine Occult Blood (NEGATIVE) Urine Nitrite (NEGATIVE) Urine Bilirubin (NEGATIVE) Urine Urobilinogen (0.2-1.0) EU/dL Ur Leukocyte Esterase (NEGATIVE) Urine RBC (0-5) Urine WBC (0-5) Ur Epithelial Cells Amorphous Sediment Urine Bacteria Urine Mucus 02/17/19 02/17/19 02/17/19 Range/Units 15:10 15:10 15:10 WBC (4.5-11.0) K/uL RBC (3.30-5.50) M/uL Hgb (12.0-15.0) g/dL Hct (36.0-48.0) % MCV (80-98) fL MCH (27-31) pg MCHC (32-36) % Plt Count (150-400) K/uL Neut % (Auto) (36-66) % Lymph % (Auto) (24-44) % Pratt % (Auto) (2-6) % Eos % (Auto) (2-4) % Baso % (Auto) (0-1) % Sodium (140-148) mmol/L Potassium (3.6-5.2) mmol/L Chloride (100-108) mmol/L Carbon Dioxide (21-32) mmol/L Anion Gap (5.0-14.0) mmol/L BUN (7-18) mg/dL Creatinine (0.6-1.0) mg/dL Est Cr Clr Drug Dosing mL/min Estimated GFR (MDRD) (>60) Glucose (74-106) mg/dL Lactic Acid 2.0 (0.4-2.0) mmol/L Calcium (8.5-10.1) mg/dL Total Bilirubin (0.2-1.0) mg/dL Direct Bilirubin (0.0-0.2) mg/dL Indirect Bilirubin AST (15-37) U/L ALT (12-78) U/L Alkaline Phosphatase (46-116) U/L C-Reactive Protein 0.12 (0.0-0.3) mg/dL Total Protein (6.4-8.2) g/dL Albumin (3.4-5.0) g/dL Globulin (2.3-3.5) g/dL Albumin/Globulin Ratio (1.2-2.2) Procalcitonin 7.55 H* ng/mL HCG, Qual Urine Color (YELLOW) Urine Appearance (CLEAR) Urine pH (5.0-8.0) Ur Specific [place] (1.008-1.030) Urine Protein (NEGATIVE) mg/dL Urine Glucose (UA) (NEGATIVE) mg/dL Urine Ketones (NEGATIVE) mg/dL Urine Occult Blood (NEGATIVE) Urine Nitrite (NEGATIVE) Urine Bilirubin (NEGATIVE) Urine Urobilinogen (0.2-1.0) EU/dL Ur Leukocyte Esterase (NEGATIVE) Urine RBC (0-5) Urine WBC (0-5) Ur Epithelial Cells Amorphous Sediment Urine Bacteria Urine Mucus 02/17/19 02/17/19 02/18/19 Range/Units 15:10 16:48 05:30 WBC 21.6 H (4.5-11.0) K/uL RBC 3.74 (3.30-5.50) M/uL Hgb 10.4 L D (12.0-15.0) g/dL Hct 32.9 L (36.0-48.0) % MCV 88 (80-98) fL MCH 28 (27-31) pg MCHC 32 (32-36) % Plt Count 171 (150-400) K/uL Neut % (Auto) (36-66) % Lymph % (Auto) (24-44) % Pratt % (Auto) (2-6) % Eos % (Auto) (2-4) % Baso % (Auto) (0-1) % Sodium (140-148) mmol/L Potassium (3.6-5.2) mmol/L Chloride (100-108) mmol/L Carbon Dioxide (21-32) mmol/L Anion Gap (5.0-14.0) mmol/L BUN (7-18) mg/dL Creatinine (0.6-1.0) mg/dL Est Cr Clr Drug Dosing mL/min Estimated GFR (MDRD) (>60) Glucose (74-106) mg/dL Lactic Acid (0.4-2.0) mmol/L Calcium (8.5-10.1) mg/dL Total Bilirubin 0.4 (0.2-1.0) mg/dL Direct Bilirubin 0.12 (0.0-0.2) mg/dL Indirect Bilirubin 0.28 AST 35 (15-37) U/L ALT 22 (12-78) U/L Alkaline Phosphatase 113 (46-116) U/L C-Reactive Protein (0.0-0.3) mg/dL Total Protein 7.1 (6.4-8.2) g/dL Albumin 3.5 (3.4-5.0) g/dL Globulin 3.6 H (2.3-3.5) g/dL Albumin/Globulin Ratio 1.0 L (1.2-2.2) Procalcitonin ng/mL HCG, Qual Urine Color Yellow (YELLOW) Urine Appearance Cloudy A (CLEAR) Urine pH 5.5 (5.0-8.0) Ur Specific [place] 1.015 (1.008-1.030) Urine Protein Negative (NEGATIVE) mg/dL Urine Glucose (UA) Normal (NEGATIVE) mg/dL Urine Ketones Negative (NEGATIVE) mg/dL Urine Occult Blood Negative (NEGATIVE) Urine Nitrite Positive H (NEGATIVE) Urine Bilirubin Negative (NEGATIVE) Urine Urobilinogen 0.2 (0.2-1.0) EU/dL Ur Leukocyte Esterase Negative (NEGATIVE) Urine RBC 0-5 (0-5) Urine WBC 0-5 (0-5) Ur Epithelial Cells Few Amorphous Sediment Not seen Urine Bacteria Many Urine Mucus Not seen 02/18/19 Range/Units 05:30 WBC (4.5-11.0) K/uL RBC (3.30-5.50) M/uL Hgb (12.0-15.0) g/dL Hct (36.0-48.0) % MCV (80-98) fL MCH (27-31) pg MCHC (32-36) % Plt Count (150-400) K/uL Neut % (Auto) (36-66) % Lymph % (Auto) (24-44) % Pratt % (Auto) (2-6) % Eos % (Auto) (2-4) % Baso % (Auto) (0-1) % Sodium 139 L (140-148) mmol/L Potassium 4.2 (3.6-5.2) mmol/L Chloride 111 H (100-108) mmol/L Carbon Dioxide 20 L (21-32) mmol/L Anion Gap 12.2 (5.0-14.0) mmol/L BUN 10 (7-18) mg/dL Creatinine 1.0 (0.6-1.0) mg/dL Est Cr Clr Drug Dosing 47.71 mL/min Estimated GFR (MDRD) > 60 (>60) Glucose 92 (74-106) mg/dL Lactic Acid (0.4-2.0) mmol/L Calcium 7.4 L (8.5-10.1) mg/dL Total Bilirubin (0.2-1.0) mg/dL Direct Bilirubin (0.0-0.2) mg/dL Indirect Bilirubin AST (15-37) U/L ALT (12-78) U/L Alkaline Phosphatase (46-116) U/L C-Reactive Protein (0.0-0.3) mg/dL Total Protein (6.4-8.2) g/dL Albumin (3.4-5.0) g/dL Globulin (2.3-3.5) g/dL Albumin/Globulin Ratio (1.2-2.2) Procalcitonin ng/mL HCG, Qual Urine Color (YELLOW) Urine Appearance (CLEAR) Urine pH (5.0-8.0) Ur Specific [place] (1.008-1.030) Urine Protein (NEGATIVE) mg/dL Urine Glucose (UA) (NEGATIVE) mg/dL Urine Ketones (NEGATIVE) mg/dL Urine Occult Blood (NEGATIVE) Urine Nitrite (NEGATIVE) Urine Bilirubin (NEGATIVE) Urine Urobilinogen (0.2-1.0) EU/dL Ur Leukocyte Esterase (NEGATIVE) Urine RBC (0-5) Urine WBC (0-5) Ur Epithelial Cells Amorphous Sediment Urine Bacteria Urine Mucus Jeff Results Last 24 Hours: Microbiology 02/17/19 17:00 Urine Culture - Preliminary Urine, Clean Catch Med Orders - Current: Current Medications Acetaminophen (Tylenol) 650 mg PO Q4H PRN PRN Reason: Pain (Mild 1-3)/fever Bupropion HCl (Wellbutrin Xl) 300 mg PO DAILY [facility] Last Admin: 02/18/19 09:23 Dose: 300 mg Cetirizine HCl (Zyrtec) 10 mg PO DAILY PRN PRN Reason: Allergies Duloxetine HCl (Cymbalta) 30 mg PO DAILY [facility] Last Admin: 02/18/19 09:23 Dose: 30 mg Hydromorphone HCl (Dilaudid) 1 mg IVPUSH Q2H PRN PRN Reason: Pain (severe 7-10) Last Admin: 02/17/19 19:50 Dose: 1 mg Piperacillin/Tazobactam/ (Dextrose 3.375 gm/ Premix) 50 mls @ 100 mls/hr IV Q6H [facility] Last Admin: 02/18/19 09:20 Dose: 100 mls/hr Influenza Virus Vaccine (Fluzone Quad [id number] Syringe) 60 mcg IM .ONCE ONE Stop: 02/19/19 10:01 Ketorolac Tromethamine (Toradol) 30 mg IVPUSH Q6H PRN PRN Reason: Pain (moderate 4-6) Stop: 02/22/19 17:52 Lactobacillus Rhamnosus (Culturelle) 1 cap PO BID [facility] Last Admin: 02/18/19 09:23 Dose: 1 cap Lorazepam (Ativan) 0.5 mg IVPUSH Q4H PRN PRN Reason: Muscle Spasm Last Admin: 02/18/19 09:35 Dose: 0.5 mg Magnesium Hydroxide (Milk Of Magnesia) 30 ml PO Q12H PRN PRN Reason: Constipation Montelukast Sodium (Singulair) 10 mg PO DAILY [facility] Last Admin: 02/18/19 09:24 Dose: 10 mg Non-Formulary Medication (Norgestimate-Ethinyl Estradiol [Ortho Tri-Cyclen 28 Tablet]) 1 tab PO DAILY [facility] Ondansetron HCl (Zofran Odt) 4 mg PO Q6H PRN PRN Reason: Nausea able to take PO Last Admin: 02/18/19 09:50 Dose: 4 mg Ondansetron HCl (Zofran) 4 mg IV Q6H PRN PRN Reason: Nausea/Vomiting Senna/Docusate Sodium (Senna Plus) 1 tab PO BID PRN PRN Reason: Constipation Last Admin: 02/17/19 21:51 Dose: 1 tab Sodium Chloride (Saline Flush) 10 ml FLUSH ASDIRECTED PRN PRN Reason: Keep Vein Open Last Admin: 02/17/19 15:20 Dose: 10 ml Topiramate (Topamax) 300 mg PO BEDTIME [facility] Last Admin: 02/17/19 23:10 Dose: 300 mg Discontinued Medications Acetaminophen (Tylenol) 650 mg PO NOW ONE Stop: 02/17/19 17:04 Last Admin: 02/17/19 17:34 Dose: 650 mg Fentanyl (Sublimaze) 50 mcg IVPUSH ONETIME ONE Stop: 02/17/19 15:40 Last Admin: 02/17/19 15:55 Dose: 25 mcg Fentanyl (Sublimaze) 50 mcg IVPUSH ONETIME ONE Stop: 02/17/19 16:37 Last Admin: 02/17/19 16:41 Dose: 50 mcg Fentanyl (Sublimaze) 50 mcg IVPUSH ONETIME ONE Stop: 02/17/19 17:25 Last Admin: 02/17/19 17:33 Dose: 50 mcg Hydrocortisone Sodium Succinate (Solu-Cortef) 100 mg IVPUSH ONETIME ONE Stop: 02/18/19 09:01 Last Admin: 02/18/19 09:09 Dose: 100 mg Hydromorphone HCl (Dilaudid) 2 mg PO Q4H PRN PRN Reason: Pain Last Admin: 02/18/19 03:15 Dose: 2 mg Sodium Chloride (Normal Saline) 1,000 mls @ 999 mls/hr IV ASDIRECTED [facility] Last Admin: 02/17/19 15:20 Dose: 999 mls/hr Piperacillin Sod/Tazobactam (Sod 3.375 gm/ Sodium Chloride) 50 mls @ 100 mls/ hr IV Q6H [facility] Last Admin: 02/18/19 03:15 Dose: 100 mls/hr Lactated Ringer's (Ringers, Lactated) 1,000 mls @ 999 mls/hr IV BOLUS ONE Stop: 02/17/19 18:04 Last Admin: 02/17/19 17:06 Dose: 999 mls/hr Potassium Chloride 20 meq/ (Lidocaine HCl 2 ml/ Premix) 102 mls @ 45.536 mls/ hr IV Q2H [facility] Stop: 02/17/19 22:33 Last Admin: 02/17/19 22:32 Dose: Not Given Sodium Chloride (Normal Saline) 1,000 mls @ 125 mls/hr IV ASDIRECTED [facility] Last Admin: 02/18/19 05:43 Dose: 125 mls/hr Potassium Chloride 20 meq/ (Premix) 100 mls @ 50 mls/hr IV Q2H [facility] Stop: 02/17/19 23:59 Last Admin: 02/17/19 23:05 Dose: 50 mls/hr Sodium Chloride (Normal Saline) 500 mls @ 500 mls/hr IV .BOLUS ONE Stop: 02/17/19 22:12 Last Admin: 02/17/19 21:45 Dose: 500 mls/hr Sodium Chloride (Normal Saline) 500 mls @ 500 mls/hr IV .BOLUS ONE Stop: 02/18/19 07:27 Last Admin: 02/18/19 07:13 Dose: 500 mls/hr Ketorolac Tromethamine (Toradol) 40 mg IM ONETIME ONE Stop: 02/17/19 15:11 Last Admin: 02/17/19 15:21 Dose: Not Given Ketorolac Tromethamine (Toradol) 30 mg IVPUSH ONETIME ONE Stop: 02/17/19 15:13 Last Admin: 02/17/19 15:18 Dose: 30 mg Lidocaine HCl (Xylocaine-Mpf 1%) 2 ml INJECT Q2H [facility] Stop: 02/17/19 22:01 Last Admin: 02/17/19 23:06 Dose: 2 ml Ondansetron HCl (Zofran Odt) 4 mg PO ONETIME ONE Stop: 02/17/19 15:11 Last Admin: 02/17/19 15:21 Dose: Not Given Ondansetron HCl (Zofran) 4 mg IVPUSH ONETIME ONE Stop: 02/17/19 15:13 Last Admin: 02/17/19 15:18 Dose: 4 mg Sodium Chloride (Saline Flush) 10 ml FLUSH ASDIRECTED PRN PRN Reason: Keep Vein Open Topiramate (Topamax) Confirm Administered Dose 300 mg .ROUTE .STK-MED ONE Stop: 02/17/19 23:08 Last Admin: 02/17/19 23:43 Dose: Not Given - Exam Quality Assessment: No: Supplemental Oxygen General: Alert, Oriented, Cooperative, Mild Distress Neck: Supple Lungs: Normal Respiratory Effort Cardiovascular: Regular Rate, Regular Rhythm GI/Abdominal Exam: Soft, No Distention Extremities: No Pedal Edema Psy/Mental Status: Alert, Normal Affect - Problem List & Annotations (1) Pyelonephritis SNOMED Code(s): 26632176 Code(s): N12 - TUBULO-INTERSTITIAL NEPHRITIS, NOT SPCF ACUTE OR CHRONIC Status: Acute Current Visit: Yes (2) Sepsis SNOMED Code(s): 02219002 Code(s): A41.9 - SEPSIS, UNSPECIFIED ORGANISM Status: Acute Current Visit : Yes Qualifiers: Sepsis acute organ dysfunction status: with acute organ dysfunction Severe sepsis acute organ dysfunction type: acute renal failure Acute renal failure type: with acute tubular necrosis Severe sepsis shock status: without septic shock (3) Acute kidney injury SNOMED Code(s): 55178051, 68918547 Code(s): N17.9 - ACUTE KIDNEY FAILURE, UNSPECIFIED Status: Acute Current Visit: Yes (4) Hypokalemia SNOMED Code(s): 00127379 Code(s): E87.6 - HYPOKALEMIA Status: Acute Current Visit: Yes - Problem List Review Problem List Initiated/Reviewed/Updated: Yes - My Orders Last 24 Hours: My Active Orders 02/17/19 17:00 CULTURE URINE [RM] Stat 02/17/19 17:47 Resuscitation Status Routine 02/17/19 18:33 Influenza Vaccine Charge [RC] .DISCHARGE 02/17/19 18:34 Patient Status [ADT] Routine Antiembolic Devices [RC] .Routine Intake and Output [RC] QSHIFT Notify Provider Vital Signs [RC] ASDIRECTED Up With Assistance [RC] ASDIRECTED VTE/DVT Education [RC] Per Unit Routine Vital Signs [RC] Q4H Acetaminophen [Tylenol] 650 mg PO Q4H PRN Cetirizine [ZyrTEC] 10 mg PO DAILY PRN Docusate Sodium/Sennosides [Senna Plus] 1 tab PO BID PRN HYDROmorphone [Dilaudid] 1 mg IVPUSH Q2H PRN Ketorolac [Toradol] 30 mg IVPUSH Q6H PRN LORazepam [Ativan] 0.5 mg IVPUSH Q4H PRN Magnesium Hydroxide [Milk of Magnesia] 30 ml PO Q12H PRN Ondansetron [Zofran ODT] 4 mg PO Q6H PRN Ondansetron [Zofran] 4 mg IV Q6H PRN Sequential Compression Device [OM.PC] Routine 02/17/19 21:00 Lactobacillus Rhamnosus GG [Culturelle] 1 cap PO BID Topiramate [Topamax] 300 mg PO BEDTIME 02/17/19 Dinner Regular Diet [DIET] 02/18/19 09:00 DULoxetine [Cymbalta] 30 mg PO DAILY Montelukast [Singulair] 10 mg PO DAILY Norgestimate-Ethinyl Estradiol [Ortho Tri-Cyclen 28 Tablet] 1 tab PO DAILY buPROPion [Wellbutrin XL] 300 mg PO DAILY 02/18/19 11:02 HYDROmorphone [Dilaudid] 4 mg PO Q4H PRN 02/18/19 11:15 Sodium Chloride 0.9% [Normal Saline] 1,000 ml IV ASDIRECTED 02/19/19 05:00 BASIC METABOLIC PANEL,BMP [CHEM] Timed CBC W/O DIFF,HEMOGRAM [HEME] Timed (1) 02/19/19 10:00 FLU Vacc [id number](6MOS+)/PF [Fluzone Quad Syringe] 60 mcg IM .ONCE ONE - Plan Plan:: ASSESSMENT AND PLAN - Acute pyelonephritis with sepsis - sepsis has resolved. White blood cell count is higher today but no fevers overnight. Pain is better but still moderately severe. Nausea and vomiting have improved. Urine culture growing a gram-negative fabi. Blood pressures have been on the low side with systolic pressures in the 80s but she is asymptomatic. -Continue broad-spectrum antibiotic coverage with Pip/Tazo -Single dose of hydrocortisone -continue IV fluids but decrease rate -Pain control -Follow-up cultures Acute kidney injury -creatinine has improved significantly with hydration overnight. -Fluids as above with repeat labs in the morning Hypokalemia -potassium levels normal today. -Repeat labs in the morning Maintenance issues - - DVT prophylaxis - mechanical - GI prophylaxis - not indicated - Nutrition - regular diet as tolerated Disposition - I would anticipate discharge home after the hospital stay Primary care physician - Kasie Lemus M.D.
[2019-02-18] MEDS: Topiramate 100 MG Tab PO SCH (21:45)
[2019-02-19] MEDS: Sodium Chloride 0.9% 1,000 ML IV SCH (00:07)
[2019-02-19] MEDS: HYDROmorphone 2 MG Tab PO PRN ×5 (00:17→21:13)
[2019-02-19] MEDS: LORazepam 2 MG/ML SDV IVPUSH PRN ×5 (00:18→21:13)
[2019-02-19] MEDS: Piperacillin/Tazobactam/Dext 3.375 GM in Premix Bag 1 BAG IV SCH (04:49)
[2019-02-19] MEDS ORDERED: Sodium Chloride 0.9% 1,000 ML IV SCH (09:00)
[2019-02-19] MEDS: TRI LINYAH PO SCH (09:29)
[2019-02-19] MEDS: Lactobacillus Rhamnosus GG (Probiotic) Cap PO SCH ×2 (09:30→21:12)
[2019-02-19] MEDS: Montelukast 10 MG Tab PO SCH (09:32)
[2019-02-19] MEDS: buPROPion 150 MG Tab.ER PO SCH (09:33)
[2019-02-19] MEDS: DULoxetine 30 MG Cap PO SCH (09:33)
--- NOTE | 2019-02-19 09:45 | PCM.PN ---
- General Info Date of Service: 02/19/19 Subjective Update: There were no acute events overnight. She did not have any fevers overnight. Her back and flank pain is mildly better today but still persists and is at least moderate in nature. She reports muscle spasms from her neck extending all the way down to the mid and lower back. No significant abdominal pain or nausea. She has been tolerating her diet but is not eating large quantities. Urine culture grew a pansensitive E. coli. Blood pressure has improved since yesterday. Functional Status: Reports: Pain Controlled, Tolerating Diet - Review of Systems General: Denies: Fever Genitourinary: Reports: Flank Pain Musculoskeletal: Reports: Back Pain - Patient Data Vitals - Most Recent: Last Vital Signs Temp 36.9 C 02/19/19 07:21 Pulse 91 02/19/19 07:21 Resp 16 02/19/19 07:21 BP 107/73 02/19/19 07:21 Pulse Ox 99 02/19/19 07:21 Weight - Most Recent: 40.823 kg I&O - Last 24 Hours: Intake & Output 02/18/19 02/19/19 02/19/19 22:59 06:59 14:59 Intake Total 1943 1087 400 Output Total 550 400 Balance 1393 687 400 Lab Results Last 24 Hours: Laboratory Results - last 24 hr 02/19/19 02/19/19 Range/Units 05:53 05:53 WBC 15.5 H (4.5-11.0) K/uL RBC 3.59 (3.30-5.50) M/uL Hgb 10.3 L (12.0-15.0) g/dL Hct 31.3 L (36.0-48.0) % MCV 87 (80-98) fL MCH 29 (27-31) pg MCHC 33 (32-36) % Plt Count 165 (150-400) K/uL Sodium 140 (140-148) mmol/L Potassium 3.3 L (3.6-5.2) mmol/L Chloride 111 H (100-108) mmol/L Carbon Dioxide 18 L (21-32) mmol/L Anion Gap 14.3 H (5.0-14.0) mmol/L BUN 8 (7-18) mg/dL Creatinine 0.8 (0.6-1.0) mg/dL Est Cr Clr Drug Dosing 59.64 mL/min Estimated GFR (MDRD) > 60 (>60) Glucose 98 (74-106) mg/dL Calcium 7.4 L (8.5-10.1) mg/dL Jeff Results Last 24 Hours: Microbiology 02/17/19 17:00 Urine Culture - Final Urine, Clean Catch Escherichia Coli 02/17/19 16:50 Aerobic Blood Culture - Preliminary Blood - Venous - Lab Draw NO GROWTH AFTER 1 DAY Anaerobic Blood Culture - Preliminary NO GROWTH AFTER 1 DAY 02/17/19 16:45 Aerobic Blood Culture - Preliminary Blood - Venous NO GROWTH AFTER 1 DAY Anaerobic Blood Culture - Preliminary NO GROWTH AFTER 1 DAY Med Orders - Current: Current Medications Acetaminophen (Tylenol) 650 mg PO Q4H PRN PRN Reason: Pain (Mild 1-3)/fever Bupropion HCl (Wellbutrin Xl) 300 mg PO DAILY [facility] Last Admin: 02/19/19 09:33 Dose: 300 mg Cetirizine HCl (Zyrtec) 10 mg PO DAILY PRN PRN Reason: Allergies Duloxetine HCl (Cymbalta) 30 mg PO DAILY [facility] Last Admin: 02/19/19 09:33 Dose: 30 mg Hydromorphone HCl (Dilaudid) 1 mg IVPUSH Q2H PRN PRN Reason: Pain (severe 7-10) Last Admin: 02/17/19 19:50 Dose: 1 mg Hydromorphone HCl (Dilaudid) 4 mg PO Q4H PRN PRN Reason: Pain (moderate 4-6) Last Admin: 02/19/19 06:42 Dose: 4 mg Ceftriaxone Sodium 1 gm/ (Sodium Chloride) 50 mls @ 100 mls/hr IV Q24H [facility] Sodium Chloride (Normal Saline) 1,000 mls @ 50 mls/hr IV ASDIRECTED [facility] Influenza Virus Vaccine (Fluzone Quad [id number] Syringe) 60 mcg IM .ONCE ONE Stop: 02/19/19 10:01 Ketorolac Tromethamine (Toradol) 30 mg IVPUSH Q6H PRN PRN Reason: Pain (moderate 4-6) Stop: 02/22/19 17:52 Lactobacillus Rhamnosus (Culturelle) 1 cap PO BID [facility] Last Admin: 02/19/19 09:30 Dose: 1 cap Lorazepam (Ativan) 0.5 mg IVPUSH Q4H PRN PRN Reason: Muscle Spasm Last Admin: 02/19/19 06:42 Dose: 0.5 mg Magnesium Hydroxide (Milk Of Magnesia) 30 ml PO Q12H PRN PRN Reason: Constipation Montelukast Sodium (Singulair) 10 mg PO DAILY [facility] Last Admin: 02/19/19 09:32 Dose: 10 mg Ondansetron HCl (Zofran Odt) 4 mg PO Q6H PRN PRN Reason: Nausea able to take PO Last Admin: 02/18/19 09:50 Dose: 4 mg Ondansetron HCl (Zofran) 4 mg IV Q6H PRN PRN Reason: Nausea/Vomiting Tri-Linyah 28 Day (Pack (Ptom)) 0 each PO DAILY [facility] Last Admin: 02/19/19 09:29 Dose: 1 each Potassium Chloride (Klor-Con M20) 40 meq PO ONETIME ONE Stop: 02/19/19 10:01 Senna/Docusate Sodium (Senna Plus) 1 tab PO BID PRN PRN Reason: Constipation Last Admin: 02/17/19 21:51 Dose: 1 tab Sodium Chloride (Saline Flush) 10 ml FLUSH ASDIRECTED PRN PRN Reason: Keep Vein Open Last Admin: 02/17/19 15:20 Dose: 10 ml Topiramate (Topamax) 300 mg PO BEDTIME [facility] Last Admin: 02/18/19 21:45 Dose: 300 mg Discontinued Medications Acetaminophen (Tylenol) 650 mg PO NOW ONE Stop: 02/17/19 17:04 Last Admin: 02/17/19 17:34 Dose: 650 mg Fentanyl (Sublimaze) 50 mcg IVPUSH ONETIME ONE Stop: 02/17/19 15:40 Last Admin: 02/17/19 15:55 Dose: 25 mcg Fentanyl (Sublimaze) 50 mcg IVPUSH ONETIME ONE Stop: 02/17/19 16:37 Last Admin: 02/17/19 16:41 Dose: 50 mcg Fentanyl (Sublimaze) 50 mcg IVPUSH ONETIME ONE Stop: 02/17/19 17:25 Last Admin: 02/17/19 17:33 Dose: 50 mcg Hydrocortisone Sodium Succinate (Solu-Cortef) 100 mg IVPUSH ONETIME ONE Stop: 02/18/19 09:01 Last Admin: 02/18/19 09:09 Dose: 100 mg Hydromorphone HCl (Dilaudid) 2 mg PO Q4H PRN PRN Reason: Pain Last Admin: 02/18/19 03:15 Dose: 2 mg Sodium Chloride (Normal Saline) 1,000 mls @ 999 mls/hr IV ASDIRECTED [facility] Last Admin: 02/17/19 15:20 Dose: 999 mls/hr Piperacillin Sod/Tazobactam (Sod 3.375 gm/ Sodium Chloride) 50 mls @ 100 mls/ hr IV Q6H [facility] Last Admin: 02/18/19 03:15 Dose: 100 mls/hr Lactated Ringer's (Ringers, Lactated) 1,000 mls @ 999 mls/hr IV BOLUS ONE Stop: 02/17/19 18:04 Last Admin: 02/17/19 17:06 Dose: 999 mls/hr Potassium Chloride 20 meq/ (Lidocaine HCl 2 ml/ Premix) 102 mls @ 45.536 mls/ hr IV Q2H [facility] Stop: 02/17/19 22:33 Last Admin: 02/17/19 22:32 Dose: Not Given Sodium Chloride (Normal Saline) 1,000 mls @ 125 [facility]ls/hr [facility] Last Admin: 02/18/19 05:43 Dose: 125 mls/hr Potassium Chloride 20 meq/ (Premix) 100 mls @ 50 mls/hr IV Q2H [facility] Stop: 02/17/19 23:59 Last Admin: 02/17/19 23:05 Dose: 50 mls/hr Sodium Chloride (Normal Saline) 500 mls @ 500 mls/hr IV .BOLUS ONE Stop: 02/17/19 22:12 Last Admin: 02/17/19 21:45 Dose: 500 mls/hr Sodium Chloride (Normal Saline) 500 mls @ 500 mls/hr IV .BOLUS ONE Stop: 02/18/19 07:27 Last Admin: 02/18/19 07:13 Dose: 500 mls/hr Piperacillin/Tazobactam/ (Dextrose 3.375 gm/ Premix) 50 mls @ 100 mls/hr IV Q6H [facility] Last Admin: 02/19/19 04:49 Dose: 100 mls/hr Sodium Chloride (Normal Saline) 1,000 mls @ 100 mls/hr IV ASDIRECTED [facility] Last Admin: 02/19/19 00:07 Dose: 100 mls/hr Ketorolac Tromethamine (Toradol) 40 mg IM ONETIME ONE Stop: 02/17/19 15:11 Last Admin: 02/17/19 15:21 Dose: Not Given Ketorolac Tromethamine (Toradol) 30 mg IVPUSH ONETIME ONE Stop: 02/17/19 15:13 Last Admin: 02/17/19 15:18 Dose: 30 mg Lidocaine HCl (Xylocaine-Mpf 1%) 2 ml INJECT Q2H [facility] Stop: 02/17/19 22:01 Last Admin: 02/17/19 23:06 Dose: 2 ml Ondansetron HCl (Zofran Odt) 4 mg PO ONETIME ONE Stop: 02/17/19 15:11 Last Admin: 02/17/19 15:21 Dose: Not Given Ondansetron HCl (Zofran) 4 mg IVPUSH ONETIME ONE Stop: 02/17/19 15:13 Last Admin: 02/17/19 15:18 Dose: 4 mg Sodium Chloride (Saline Flush) 10 ml FLUSH ASDIRECTED PRN PRN Reason: Keep Vein Open Topiramate (Topamax) Confirm Administered Dose 300 mg .ROUTE .STK-MED ONE Stop: 02/17/19 23:08 Last Admin: 02/17/19 23:43 Dose: Not Given - Exam Quality Assessment: No: Supplemental Oxygen General: Alert, Oriented, Cooperative, No Acute Distress Lungs: Normal Respiratory Effort GI/Abdominal Exam: Soft, No Distention Extremities: No Pedal Edema Psy/Mental Status: Alert, Normal Affect - Problem List & Annotations (1) Pyelonephritis SNOMED Code(s): 92695937 Code(s): N12 - TUBULO-INTERSTITIAL NEPHRITIS, NOT SPCF ACUTE OR CHRONIC Status: Acute Current Visit: Yes (2) Sepsis SNOMED Code(s): 66416101 Code(s): A41.9 - SEPSIS, UNSPECIFIED ORGANISM Status: Acute Current Visit : Yes Qualifiers: Sepsis acute organ dysfunction status: with acute organ dysfunction Severe sepsis acute organ dysfunction type: acute renal failure Acute renal failure type: with acute tubular necrosis Severe sepsis shock status: without septic shock (3) Acute kidney injury SNOMED Code(s): 97539213, 02728557 Code(s): N17.9 - ACUTE KIDNEY FAILURE, UNSPECIFIED Status: Acute Current Visit: Yes (4) Hypokalemia SNOMED Code(s): 71876265 Code(s): E87.6 - HYPOKALEMIA Status: Acute Current Visit: Yes - Problem List Review Problem List Initiated/Reviewed/Updated: Yes - My Orders Last 24 Hours: My Active Orders 02/18/19 09:00 DULoxetine [Cymbalta] 30 mg PO DAILY Montelukast [Singulair] 10 mg PO DAILY buPROPion [Wellbutrin XL] 300 mg PO DAILY 02/18/19 11:02 HYDROmorphone [Dilaudid] 4 mg PO Q4H PRN 02/19/19 09:00 Patient's Own Medication [Ptom] 0 each PO DAILY Sodium Chloride 0.9% [Normal Saline] 1,000 ml IV ASDIRECTED 02/19/19 10:00 FLU Vacc [id number](6MOS+)/PF [Fluzone Quad Syringe] 60 mcg IM .ONCE ONE Potassium Chloride [Klor-Con M20] 40 meq PO ONETIME ONE cefTRIAXone [Rocephin] 1 gm Sodium Chloride 0.9% [Normal Saline] 50 ml IV Q24H 02/20/19 05:00 BASIC METABOLIC PANEL,BMP [CHEM] Timed CBC W/O DIFF,HEMOGRAM [HEME] Timed (1) - Plan Plan:: ASSESSMENT AND PLAN - Acute pyelonephritis with sepsis - sepsis has resolved. White blood cell count has improved since yesterday. Blood pressures are better. Pain is improving but still at least moderate in severity. Urine culture with pansensitive E. coli. -Change antibiotics to ceftriaxone -continue IV fluids but decrease rate to 50 mL/h -Pain control -Follow-up blood cultures Acute kidney injury -creatinine back to baseline. -Fluids as above with repeat labs in the morning Hypokalemia -potassium low again today and will require supplementation. -40 mEq KCl x1 this morning -Repeat labs in the morning Maintenance issues - - DVT prophylaxis - mechanical - GI prophylaxis - not indicated - Nutrition - regular diet as tolerated Disposition - I would anticipate discharge home after the hospital stay Primary care physician - Kasie Lemus M.D.
[2019-02-19] MEDS ORDERED: Potassium Chloride 20 MEQ Tab.ER PO ONE (10:00)
[2019-02-19] MEDS ORDERED: FLU Vacc QS2019-20(6MOS+)/PF 60 MCG/0.5 ML SYRINGE IM ONE (10:00)
[2019-02-19] MEDS: cefTRIAXone 1 GM in Sodium Chloride 0.9% 50 ML IV SCH (10:02)
[2019-02-19] MEDS: Topiramate 100 MG Tab PO SCH (21:12)
[2019-02-20] MEDS: HYDROmorphone 2 MG Tab PO PRN ×3 (03:21→13:11)
[2019-02-20] MEDS: LORazepam 2 MG/ML SDV IVPUSH PRN ×2 (03:23→08:15)
[2019-02-20] MEDS: DULoxetine 30 MG Cap PO SCH (08:22)
[2019-02-20] MEDS: Lactobacillus Rhamnosus GG (Probiotic) Cap PO SCH (08:22)
[2019-02-20] MEDS: Montelukast 10 MG Tab PO SCH (08:23)
[2019-02-20] MEDS: buPROPion 150 MG Tab.ER PO SCH (08:23)
[2019-02-20] MEDS: TRI LINYAH PO SCH (08:23)
[2019-02-20] MEDS: cefTRIAXone 1 GM in Sodium Chloride 0.9% 50 ML IV SCH (09:36)
[2019-02-20 10:36] VITALS: BP 107/73; PULSE 83
--- NOTE | 2019-02-20 12:28 | PCM.DCSUM1 ---
Discharge Summary - Hospital Course Brief History: Healthy 43-year-old female who presented with bilateral but right greater than left flank pain, fever and weakness. She was admitted for management of bilateral pyelonephritis with sepsis. Diagnosis: Stroke: No - Discharge Data Discharge Date: 02/20/19 Discharge Disposition: Home, Self-Care 01 Condition: Fair - Referral to Home Health Primary Care Physician: PCP None - Discharge Diagnosis/Problem(s) (1) Pyelonephritis SNOMED Code(s): 88155024 ICD Code: N12 - TUBULO-INTERSTITIAL NEPHRITIS, NOT SPCF ACUTE OR CHRONIC Status: Acute (2) Sepsis SNOMED Code(s): 86927674 ICD Code: A41.9 - SEPSIS, UNSPECIFIED ORGANISM Status: Acute Qualifiers: Sepsis type: Escherichia coli Sepsis acute organ dysfunction status: with acute organ dysfunction Severe sepsis acute organ dysfunction type: acute renal failure Acute renal failure type: with acute tubular necrosis Severe sepsis shock status: without septic shock Qualified Code(s): A41.51 - Sepsis due to Escherichia coli [E. coli]; R65.20 - Severe sepsis without septic shock; N17.0 - Acute kidney failure with tubular necrosis (3) Acute kidney injury SNOMED Code(s): 11853950, 37351426 ICD Code: N17.9 - ACUTE KIDNEY FAILURE, UNSPECIFIED Status: Acute (4) Hypokalemia SNOMED Code(s): 40978945 ICD Code: E87.6 - HYPOKALEMIA Status: Acute - Patient Summary/Data Hospital Course: Cheryl presented to the emergency room with bilateral flank pain as well as fevers, nausea and weakness. Work-up in the emergency room was concerning for bilateral pyelonephritis with sepsis. Initially there was concern for a kidney stone but the CT scan did not reveal any kidney stone. She was started on Pip/ Tazo after cultures were obtained and she was admitted to the hospital for further management. She also received IV fluids per the sepsis protocol. Overnight following admission she did have a drop in her blood pressure. This was minimally responsive to IV fluid boluses but did respond nicely to a single dose of hydrocortisone the next morning. Blood pressures have been stable since that time. Her flank pain has shown steady improvement throughout the course of the hospital stay. Her nausea resolved and she was able to advance her diet during hospital stay. Her urine culture did grow out a pansensitive E. coli and she was transitioned from Pip/Tazo to ceftriaxone and then to ciprofloxacin at the time of discharge. She also had acute kidney injury with a creatinine of 1.5 with significant improvement following hydration and management of the infection. Her creatinine is now back to baseline and less than 1. She also had some mild hypokalemia which did respond to supplementation. Her pain is controlled with oral medications at this time. She has not had any fevers. I believe she is safe for outpatient management. She will receive 6 more days of oral antibiotics. She does have a prescription for both pain medication as well as lorazepam to be used as a muscle relaxer. She will be following up next week. - Patient Instructions Diet: Regular Diet as Tolerated Activity: As Tolerated Driving: Do Not Drive (if taking pain pills or lorazepam ) Showering/Bathing: May Shower Notify Provider of: Fever, Increased Pain, Nausea and/or Vomiting Other/Special Instructions: 1. You were in the hospital for management of pyelonephritis. Your condition is improving with antibiotic therapy. Your urine culture did grow out E. coli which was sensitive to a variety of different antibiotics. I recommend ongoing antibiotic therapy with ciprofloxacin. You should take 500 mg by mouth twice daily. Your first dose will be due tomorrow morning around 9 AM. You may use acetaminophen or ibuprofen for mild pain. I did send a prescription for Dilaudid for moderate or severe pain. You may also use lorazepam as needed for muscle spasms. 2. Continue your other medications as previously prescribed. 3. Follow-up with your primary care in 7 to 10 days. - Discharge Plan *PRESCRIPTION DRUG MONITORING PROGRAM REVIEWED*: Not Applicable *COPY OF PRESCRIPTION DRUG MONITORING REPORT IN PATIENT WHIT: Not Applicable Prescriptions/Med Rec: Ciprofloxacin [Ciprofloxacin HCl] 500 mg PO BID #12 tab HYDROmorphone [Dilaudid] 2 mg PO Q4H PRN #15 tablet PRN Reason: Pain (Moderate 4-6) LORazepam 0.5 mg PO Q4H PRN #10 tab PRN Reason: Muscle Spasm Home Medications: Home Meds Cetirizine [ZyrTEC] 10 mg PO DAILY PRN 11/27/15 [History] Norgestimate-Ethinyl Estradiol [Ortho Tri-Cyclen 28 Tablet] 1 tab PO DAILY 11/26 [History] SUMAtriptan [Imitrex] 100 mg PO DAILY PRN 11/27/15 [History] Topiramate [Topamax] 300 mg PO BEDTIME 11/27/15 [History] buPROPion [Wellbutrin XL] 300 mg PO DAILY 11/27/15 [History] Ondansetron [Zofran ODT] 4 mg PO Q4H PRN #12 tab.dis 11/28/15 [Rx] DULoxetine [Cymbalta] 30 mg PO DAILY 02/17/19 [History] Montelukast [Singulair] 10 mg PO DAILY 02/17/19 [History] Ciprofloxacin [Ciprofloxacin HCl] 500 mg PO BID #12 tab 02/20/19 [Rx] HYDROmorphone [Dilaudid] 2 mg PO Q4H PRN #15 tablet 02/20/19 [Rx] LORazepam 0.5 mg PO Q4H PRN #10 tab 02/20/19 [Rx] Oxygen Therapy Mode: Room Air Patient Handouts: Pyelonephritis, Adult, [id number], Lorazepam tablets, Hydromorphone tablets, Ciprofloxacin tablets Referrals: Marlen Coronado PA-C [Ordering Only Provider] - 03/03/19 10:00 am (Please arrive 15 minutes early to register for your appointment.) - Discharge Summary/Plan Comment DC Time >30 min.: No - Patient Data Vitals - Most Recent: Last Vital Signs Temp 36.4 C 02/20/19 10:35 Pulse 83 02/20/19 10:35 Resp 14 02/20/19 10:35 BP 107/73 02/20/19 10:35 Pulse Ox 100 02/20/19 10:35 Weight - Most Recent: 40.823 kg I&O - Last 24 hours: Intake & Output 02/19/19 02/20/19 02/20/19 22:59 06:59 14:59 Intake Total 1270 599 550 Output Total 1625 1100 1550 Balance -843 -424 -0457 Lab Results - Last 24 hrs: Laboratory Results - last 24 hr 02/20/19 02/20/19 Range/Units 04:00 04:00 WBC 6.0 (4.5-11.0) K/uL RBC 3.97 (3.30-5.50) M/uL Hgb 11.0 L (12.0-15.0) g/dL Hct 34.7 L (36.0-48.0) % MCV 87 (80-98) fL MCH 28 (27-31) pg MCHC 32 (32-36) % Plt Count 198 (150-400) K/uL Sodium 138 L (140-148) mmol/L Potassium 3.8 (3.6-5.2) mmol/L Chloride 108 (100-108) mmol/L Carbon Dioxide 21 (21-32) mmol/L Anion Gap 12.8 (5.0-14.0) mmol/L BUN 3 L D (7-18) mg/dL Creatinine 0.9 (0.6-1.0) mg/dL Est Cr Clr Drug Dosing 53.01 mL/min Estimated GFR (MDRD) > 60 (>60) Glucose 85 (74-106) mg/dL Calcium 8.0 L (8.5-10.1) mg/dL [facility] Results - Last 24 hrs: Microbiology 02/17/19 16:45 Aerobic Blood Culture - Preliminary Blood - Venous NO GROWTH AFTER 2 DAYS Anaerobic Blood Culture - Preliminary NO GROWTH AFTER 2 DAYS 02/17/19 16:50 Aerobic Blood Culture - Preliminary Blood - Venous - Lab Draw NO GROWTH AFTER 2 DAYS Anaerobic Blood Culture - Preliminary NO GROWTH AFTER 2 DAYS Med Orders - Current: Current Medications Acetaminophen (Tylenol) 650 mg PO Q4H PRN PRN Reason: Pain (Mild 1-3)/fever Bupropion HCl (Wellbutrin Xl) 300 mg PO DAILY [facility] Last Admin: 02/20/19 08:23 Dose: 300 mg Cetirizine HCl (Zyrtec) 10 mg PO DAILY PRN PRN Reason: Allergies Duloxetine HCl (Cymbalta) 30 mg PO DAILY [facility] Last Admin: 02/20/19 08:22 Dose: 30 mg Hydromorphone HCl (Dilaudid) 1 mg IVPUSH Q2H PRN PRN Reason: Pain (severe 7-10) Last Admin: 02/17/19 19:50 Dose: 1 mg Hydromorphone HCl (Dilaudid) 4 mg PO Q4H PRN PRN Reason: Pain (moderate 4-6) Last Admin: 02/20/19 08:15 Dose: 4 mg Ceftriaxone Sodium 1 gm/ (Sodium Chloride) 50 mls @ 100 mls/hr IV Q24H [facility] Last Admin: 02/20/19 09:36 Dose: 100 mls/hr Sodium Chloride (Normal Saline) 1,000 mls @ 50 mls/hr IV ASDIRECTED [facility] Last Admin: 02/19/19 12:43 Dose: 50 mls/hr Ketorolac Tromethamine (Toradol) 30 mg IVPUSH Q6H PRN PRN Reason: Pain (moderate 4-6) Stop: 02/22/19 17:52 Lactobacillus Rhamnosus (Culturelle) 1 cap PO BID [facility] Last Admin: 02/20/19 08:22 Dose: 1 cap Lorazepam (Ativan) 0.5 mg IVPUSH Q4H PRN PRN Reason: Muscle Spasm Last Admin: 02/20/19 08:15 Dose: 0.5 mg Magnesium Hydroxide (Milk Of Magnesia) 30 ml PO Q12H PRN PRN Reason: Constipation Montelukast Sodium (Singulair) 10 mg PO DAILY [facility] Last Admin: 02/20/19 08:23 Dose: 10 mg Ondansetron HCl (Zofran Odt) 4 mg PO Q6H PRN PRN Reason: Nausea able to take PO Last Admin: 02/18/19 09:50 Dose: 4 mg Ondansetron HCl (Zofran) 4 mg IV Q6H PRN PRN Reason: Nausea/Vomiting Tri-Linyah 28 Day (Pack (Ptom)) 0 each PO DAILY [facility] Last Admin: 02/20/19 08:23 Dose: 1 each Senna/Docusate Sodium (Senna Plus) 1 tab PO BID PRN PRN Reason: Constipation Last Admin: 02/17/19 21:51 Dose: 1 tab Sodium Chloride (Saline Flush) 10 ml FLUSH ASDIRECTED PRN PRN Reason: Keep Vein Open Last Admin: 02/17/19 15:20 Dose: 10 ml Topiramate (Topamax) 300 mg PO BEDTIME [facility] Last Admin: 02/19/19 21:12 Dose: 300 mg Discontinued Medications Acetaminophen (Tylenol) 650 mg PO NOW ONE Stop: 02/17/19 17:04 Last Admin: 02/17/19 17:34 Dose: 650 mg Fentanyl (Sublimaze) 50 mcg IVPUSH ONETIME ONE Stop: 02/17/19 15:40 Last Admin: 02/17/19 15:55 Dose: 25 mcg Fentanyl (Sublimaze) 50 mcg IVPUSH ONETIME ONE Stop: 02/17/19 16:37 Last Admin: 02/17/19 16:41 Dose: 50 mcg Fentanyl (Sublimaze) 50 mcg IVPUSH ONETIME ONE Stop: 02/17/19 17:25 Last Admin: 02/17/19 17:33 Dose: 50 mcg Hydrocortisone Sodium Succinate (Solu-Cortef) 100 mg IVPUSH ONETIME ONE Stop: 02/18/19 09:01 Last Admin: 02/18/19 09:09 Dose: 100 mg Hydromorphone HCl (Dilaudid) 2 mg PO Q4H PRN PRN Reason: Pain Last Admin: 02/18/19 03:15 Dose: 2 mg Sodium Chloride (Normal Saline) 1,000 mls @ 999 mls/hr IV ASDIRECTED [facility] Last Admin: 02/17/19 15:20 Dose: 999 mls/hr Piperacillin Sod/Tazobactam (Sod 3.375 gm/ Sodium Chloride) 50 mls @ 100 mls/ hr IV Q6H [facility] Last Admin: 02/18/19 03:15 Dose: 100 mls/hr Lactated Ringer's (Ringers, Lactated) 1,000 mls @ 999 mls/hr IV BOLUS ONE Stop: 02/17/19 18:04 Last Admin: 02/17/19 17:06 Dose: 999 mls/hr Potassium Chloride 20 meq/ (Lidocaine HCl 2 ml/ Premix) 102 mls @ 45.536 mls/ hr IV Q2H [facility] Stop: 02/17/19 22:33 Last Admin: 02/17/19 22:32 Dose: Not Given Sodium Chloride (Normal Saline) 1,000 mls @ 125 mls/hr IV ASDIRECTED [facility] Last Admin: 02/18/19 05:43 Dose: 125 mls/hr Potassium Chloride 20 meq/ (Premix) 100 mls @ 50 mls/hr IV Q2H [facility] Stop: 02/17/19 23:59 Last Admin: 02/17/19 23:05 Dose: 50 mls/hr Sodium Chloride (Normal Saline) 500 mls @ 500 mls/hr IV .BOLUS ONE Stop: 02/17/19 22:12 Last Admin: 02/17/19 21:45 Dose: 500 mls/hr Sodium Chloride (Normal Saline) 500 mls @ 500 mls/hr IV .BOLUS ONE Stop: 02/18/19 07:27 Last Admin: 02/18/19 07:13 Dose: 500 mls/hr Piperacillin/Tazobactam/ (Dextrose 3.375 gm/ Premix) 50 mls @ 100 mls/hr IV Q6H [facility] Last Admin: 02/19/19 04:49 Dose: 100 mls/hr Sodium Chloride (Normal Saline) 1,000 mls @ 100 mls/hr IV ASDIRECTED [facility] Last Admin: 02/19/19 00:07 Dose: 100 mls/hr Influenza Virus Vaccine (Fluzone Quad [id number] Syringe) 60 mcg IM .ONCE ONE Stop: 02/19/19 10:01 Last Admin: 02/19/19 09:49 Dose: 60 mcg Ketorolac Tromethamine (Toradol) 40 mg IM ONETIME ONE Stop: 02/17/19 15:11 Last Admin: 02/17/19 15:21 Dose: Not Given Ketorolac Tromethamine (Toradol) 30 mg IVPUSH ONETIME ONE Stop: 02/17/19 15:13 Last Admin: 02/17/19 15:18 Dose: 30 mg Lidocaine HCl (Xylocaine-Mpf 1%) 2 ml INJECT Q2H [facility] Stop: 02/17/19 22:01 Last Admin: 02/17/19 23:06 Dose: 2 ml Ondansetron HCl (Zofran Odt) 4 mg PO ONETIME ONE Stop: 02/17/19 15:11 Last Admin: 02/17/19 15:21 Dose: Not Given Ondansetron HCl (Zofran) 4 mg IVPUSH ONETIME ONE Stop: 02/17/19 15:13 Last Admin: 02/17/19 15:18 Dose: 4 mg Potassium Chloride (Klor-Con M20) 40 meq PO ONETIME ONE Stop: 02/19/19 10:01 Last Admin: 02/19/19 10:10 Dose: 40 meq Sodium Chloride (Saline Flush) 10 ml FLUSH ASDIRECTED PRN PRN Reason: Keep Vein Open Topiramate (Topamax) Confirm Administered Dose 300 mg .ROUTE .STK-MED ONE Stop: 02/17/19 23:08 Last Admin: 02/17/19 23:43 Dose: Not Given - Exam Quality Assessment: Denies: Supplemental Oxygen General: Reports: Alert, Oriented, Cooperative, No Acute Distress Lungs: Reports: Normal Respiratory Effort Cardiovascular: Reports: Regular Rate, Regular Rhythm GI/Abdominal Exam: Soft, No Distention Extremities: No Pedal Edema Psy/Mental Status: Reports: Alert, Normal Affect
[2019-02-20] MEDS ORDERED: LORazepam 0.5 MG Tab PO ONE (13:16)
== END 2019-02-20 15:02 | disposition home or self-care (01) | DRG 871 ==
LOC: JP.ED 14:46 → JP.MS 17:46
PROVIDERS: ADMIT Internal Medicine; ATTEND Internal Medicine
DX: A41.51 Sepsis due to Escherichia coli [E. coli] (principal); N17.0 Acute kidney failure with tubular necrosis; N12 Tubulo-interstitial nephritis, not specified as acute or chronic; R65.20 Severe sepsis without septic shock; E87.6 Hypokalemia; G43.909 Migraine, unspecified, not intractable, without status migrainosus; J45.909 Unspecified asthma, uncomplicated; F32.9 Major depressive disorder, single episode, unspecified; Z23 Encounter for immunization; Z87.442 Personal history of urinary calculi; Z79.899 Other long term (current) drug therapy; Z90.49 Acquired absence of other specified parts of digestive tract
CPT/HCPCS: 36415; 74176; 80048; 80076; 81001; 83605; 84145; 84703; 85025; 85027; 86140; 87040; 87086; 87088; 87186; 90686; 96361; 96374; 96375; 96376; 99285-25; A9270-GY; G0008; J0696; J1170; J1720; J1885; J2001; J2060; J2405; J2543; J3010; J3480; J7030; J7040; J7050; J7120

== ENCOUNTER 2019-02-24 19:50 | Emergency (ER) | payer MEDICAID ==
--- NOTE | 2019-02-24 20:17 | EDM.PDOC ---
ED HPI GENERAL MEDICAL PROBLEM - General Chief Complaint: Genitourinary Problem Stated Complaint: R SIDE KIDNEY PAIN Time Seen by Provider: 02/24/19 20:12 Source of Information: Reports: Patient History Limitations: Reports: No Limitations - History of Present Illness INITIAL COMMENTS - FREE TEXT/NARRATIVE: pt is having severe rt flank pain . She had a cat scan last Sunday WHICH DID NOT SHOW STONES IN THE KIDNEYS OR THE URETER. PT DEVELOPED ACUTE RT FLANK PAIN THIS PM AND IT FEELS LIKE SHE IS PASSING A STONE. sHE HAS NOT NOTED BLOOD IN THE URINE,. aCCORDING TO HER SHE HAS NOT EATEN MUCH TODAY. sHE FEELS LIKE SHE HAS BEEN DRINKING ALOT OF WATER. Onset: Today, Other ( tHE PAIN GOT VERY SEVERE TODAY. ) Duration: Hour(s): Location: Reports: Abdomen Associated Symptoms: Reports: Loss of Appetite, Weakness, Other (PT HAS BEEN FEELING HOT AND COLD. pT IS HAVING SEVERE RT FLANK PAIN. ) flank Pain Score (Numeric/FACES): 8 - Related Data Allergies Allergy/AdvReac Type Severity Reaction Status Date / Time Sulfa (Sulfonamide Allergy Other Verified 02/24/19 20:23 Antibiotics) tramadol Allergy Itching Verified 02/24/19 20:23 Home Meds: Home Meds Cetirizine [ZyrTEC] 10 mg PO DAILY PRN 11/27/15 [History] Norgestimate-Ethinyl Estradiol [Ortho Tri-Cyclen 28 Tablet] 1 tab PO DAILY 11/26 [History] SUMAtriptan [Imitrex] 100 mg PO DAILY PRN 11/27/15 [History] Topiramate [Topamax] 300 mg PO BEDTIME 11/27/15 [History] buPROPion [Wellbutrin XL] 300 mg PO DAILY 11/27/15 [History] Ondansetron [Zofran ODT] 4 mg PO Q4H PRN #12 tab.dis 11/28/15 [Rx] DULoxetine [Cymbalta] 30 mg PO DAILY 02/17/19 [History] Montelukast [Singulair] 10 mg PO DAILY 02/17/19 [History] Ciprofloxacin [Ciprofloxacin HCl] 500 mg PO BID #12 tab 02/20/19 [Rx] HYDROmorphone [Dilaudid] 2 mg PO Q4H PRN #15 tablet 02/20/19 [Rx] LORazepam 0.5 mg PO Q4H PRN #10 tab 02/20/19 [Rx] Past Medical History HEENT History: Reports: Allergic Rhinitis, Other (See Below) Other HEENT History: migraines, history of 2 concussions Respiratory History: Reports: Asthma Genitourinary History: Reports: Renal Calculus Musculoskeletal History: Reports: Other (See Below) Other Musculoskeletal History: stress fractures on ankles and knees Neurological History: Reports: Migraines Psychiatric History: Reports: Depression - Infectious Disease History Infectious Disease History: Reports: Chicken Pox - Past Surgical History GI Surgical History: Reports: Appendectomy, Cholecystectomy Social & Family History - Family History Neurological: Reports: Cerebral Aneurysms - Tobacco Use Smoking Status *Q: Former Smoker Used Tobacco, but Quit: Yes Month/Year Tobacco Last Used: 2017 - Caffeine Use Caffeine Use: Reports: Coffee - Recreational Drug Use Recreational Drug Use: Yes ED ROS GENERAL - Review of Systems Review Of Systems: See Below Constitutional: Reports: Chills, Decreased Appetite HEENT: Reports: No Symptoms Respiratory: Reports: No Symptoms Cardiovascular: Reports: No Symptoms Endocrine: Reports: No Symptoms GI/Abdominal: Reports: Abdominal Pain : Reports: Flank Pain Musculoskeletal: Reports: No Symptoms Skin: Reports: No Symptoms Neurological: Reports: No Symptoms ED EXAM, GI/ABD - Physical Exam Exam: See Below Text/Narrative:: pt arrived with severe rt flank pain. She was recently hospitalized with pyleonephritis. She did have a cat scan at that time which was neg for stone. She did grow out Ecoli and she is on cipro and is sensitive to cipro. She states she was doing well and she suddenly this pm developed more pain. Exam Limited By: No Limitations General Appearance: Alert, Anxious, Severe Distress, Other (pt does appear very anxious and having difficulty coping with the distress. ) Ears: Normal TMs Nose: Normal Inspection Throat/Mouth: Normal Inspection Head: Atraumatic Neck: Normal Inspection Respiratory/Chest: No Respiratory Distress Cardiovascular: Regular Rate, Rhythm GI/Abdominal Exam: Other (pt is tender in the flank on the rt. She is not guarded in the abdoman. ) (Female) Exam: Deferred Rectal (Female) Exam: Deferred Back Exam: Normal Inspection Extremities: Normal Inspection Neurological: Alert, Oriented, Normal Cognition Psychiatric: Anxious, Other (pt seemes quite out of control with pain and anxiety. ) Course - Vital Signs Last Recorded V/S: Last Vital Signs Temp 36.8 C 02/24/19 22:09 Pulse 113 H 02/24/19 22:09 Resp 16 02/24/19 22:09 BP 104/72 02/24/19 22:09 Pulse Ox 100 02/24/19 22:09 - Orders/Labs/Meds Orders: Active Orders 24 hr Category Date Time Status Pelvis Non OB Ltd [US] Stat Exams 02/24/19 22:13 Taken Transvaginal Non OB [US] Stat Exams 02/24/19 22:13 Taken CULTURE URINE [] Stat Lab 02/24/19 20:33 Received Sodium Chloride 0.9% [Normal Saline] 1,000 ml Med 02/24/19 20:30 Active IV ASDIRECTED Sodium Chloride 0.9% [Normal Saline] 1,000 ml Med 02/24/19 21:00 Active IV ASDIRECTED Medication Orders Sodium Chloride (Normal Saline) 1,000 mls @ 999 mls/hr IV ASDIRECTED MAGDIEL Last Admin: 02/24/19 20:39 Dose: 999 mls/hr Sodium Chloride (Normal Saline) 1,000 mls @ 999 mls/hr IV ASDIRECTED MAGDIEL Last Admin: 02/24/19 22:05 Dose: 999 mls/hr Labs: Laboratory Tests 02/24/19 02/24/19 02/24/19 Range/Units 20:12 20:24 20:24 WBC 4.2 L (4.5-11.0) K/uL RBC 4.83 (3.30-5.50) M/uL Hgb 13.3 D (12.0-15.0) g/dL Hct 41.1 (36.0-48.0) % MCV 85 (80-98) fL MCH 28 (27-31) pg MCHC 32 (32-36) % Plt Count 233 (150-400) K/uL Neut % (Auto) 36 (36-66) % Lymph % (Auto) 52 H (24-44) % [place] % (Auto) 9 H (2-6) % Eos % (Auto) 2 (2-4) % Baso % (Auto) 1 (0-1) % Sodium 137 L (140-148) mmol/L Potassium 3.6 (3.6-5.2) mmol/L Chloride 103 (100-108) mmol/L Carbon Dioxide 22 (21-32) mmol/L Anion Gap 15.6 H (5.0-14.0) mmol/L BUN 13 D (7-18) mg/dL Creatinine 1.1 H (0.6-1.0) mg/dL Est Cr Clr Drug Dosing 44.73 mL/min Estimated GFR (MDRD) 55 L (>60) Glucose 89 (74-106) mg/dL Lactic Acid (0.4-2.0) mmol/L Calcium 8.2 L (8.5-10.1) mg/dL Total Bilirubin 0.2 (0.2-1.0) mg/dL AST 16 (15-37) U/L ALT 20 (12-78) U/L Alkaline Phosphatase 94 (46-116) U/L C-Reactive Protein (0.0-0.3) mg/dL Total Protein 7.5 (6.4-8.2) g/dL Albumin 3.4 (3.4-5.0) g/dL Globulin 4.1 H (2.3-3.5) g/dL Albumin/Globulin Ratio 0.8 L (1.2-2.2) Urine Color Yellow (YELLOW) Urine Appearance Slightly cloudy A (CLEAR) Urine pH 5.5 (5.0-8.0) Ur Specific [place] > 1.030 (1.008-1.030) Urine Protein Trace H (NEGATIVE) mg/dL Urine Glucose (UA) Normal (NEGATIVE) mg/dL Urine Ketones Negative (NEGATIVE) mg/dL Urine Occult Blood Moderate (NEGATIVE) Urine Nitrite Negative (NEGATIVE) Urine Bilirubin Negative (NEGATIVE) Urine Urobilinogen 0.2 (0.2-1.0) EU/dL Ur Leukocyte Esterase Negative (NEGATIVE) Urine RBC 75-100 H (0-5) Urine WBC 0-5 (0-5) Ur Epithelial Cells Moderate Amorphous Sediment Not seen Urine Bacteria Few Urine Mucus Many 02/24/19 02/24/19 Range/Units 20:34 22:16 WBC (4.5-11.0) K/uL RBC (3.30-5.50) M/uL Hgb (12.0-15.0) g/dL Hct (36.0-48.0) % MCV (80-98) fL MCH (27-31) pg MCHC (32-36) % Plt Count (150-400) K/uL Neut % (Auto) (36-66) % Lymph % (Auto) (24-44) % [place] % (Auto) (2-6) % Eos % (Auto) (2-4) % Baso % (Auto) (0-1) % Sodium (140-148) mmol/L Potassium (3.6-5.2) mmol/L Chloride (100-108) mmol/L Carbon Dioxide (21-32) mmol/L Anion Gap (5.0-14.0) mmol/L BUN (7-18) mg/dL Creatinine (0.6-1.0) mg/dL Est Cr Clr Drug Dosing mL/min Estimated GFR (MDRD) (>60) Glucose (74-106) mg/dL Lactic Acid 1.2 (0.4-2.0) mmol/L Calcium (8.5-10.1) mg/dL Total Bilirubin (0.2-1.0) mg/dL AST (15-37) U/L ALT (12-78) U/L Alkaline Phosphatase (46-116) U/L C-Reactive Protein 0.24 (0.0-0.3) mg/dL Total Protein (6.4-8.2) g/dL Albumin (3.4-5.0) g/dL Globulin (2.3-3.5) g/dL Albumin/Globulin Ratio (1.2-2.2) Urine Color (YELLOW) Urine Appearance (CLEAR) Urine pH (5.0-8.0) Ur Specific [place] (1.008-1.030) Urine Protein (NEGATIVE) mg/dL Urine Glucose (UA) (NEGATIVE) mg/dL Urine Ketones (NEGATIVE) mg/dL Urine Occult Blood (NEGATIVE) Urine Nitrite (NEGATIVE) Urine Bilirubin (NEGATIVE) Urine Urobilinogen (0.2-1.0) EU/dL Ur Leukocyte Esterase (NEGATIVE) Urine RBC (0-5) Urine WBC (0-5) Ur Epithelial Cells Amorphous Sediment Urine Bacteria Urine Mucus Meds: Medications Generic Name Dose Route Start Last Admin Trade Name Freq PRN Reason Stop Dose Admin Sodium Chloride 1,000 mls @ 999 mls/hr 02/24/19 20:30 02/24/19 20:39 Normal Saline IV 999 mls/hr ASDIRECTED MAGDIEL Administration Sodium Chloride 1,000 mls @ 999 mls/hr 02/24/19 21:00 02/24/19 22:05 Normal Saline IV 999 mls/hr ASDIRECTED MAGDIEL Administration Discontinued Medications Generic Name Dose Route Start Last Admin Trade Name Freq PRN Reason Stop Dose Admin Hydromorphone HCl 0.5 mg 02/24/19 20:21 02/24/19 20:25 Dilaudid IVPUSH 02/24/19 20:22 0.5 mg ONETIME ONE Administration Hydromorphone HCl 0.5 mg 02/24/19 21:52 02/24/19 22:06 Dilaudid IVPUSH 02/24/19 21:53 0.5 mg ONETIME ONE Administration Lorazepam 0.5 mg 02/24/19 20:32 02/24/19 20:41 Ativan IVPUSH 02/24/19 20:33 0.5 mg ONETIME ONE Administration Magnesium Citrate 296 ml 02/24/19 22:50 02/24/19 23:14 Citrate Of Magnesia PO 02/24/19 22:51 296 ml ONETIME ONE Administration - Re-Assessments/Exams Free Text/Narrative Re-Assessment/Exam: 02/24/19 21:01 PT HAS A SIG AMOUNT OF BLOOD IN THE URINE AND SHE HAS VERY LITTLE WBCS AND BACTERIA. a CULTURE WAS SET UP HER URINE IS VERY CONMCENTRATED. hER SPECFIC GRAVITY IS 1.O30. A cat scan of the abdoman showed a ovarian cyst on the rt at 2.5 cm. There is no free fluid. There are no renal stones Her bowel is very full of stool. Her urine was recultured. Her crp is not high. Her lactic acid was normal. 02/24/19 23:16 02/24/19 23:35 Us of the pelvis showed a rt ovarian cyst at 2.5 cm, no solid looking elements, No free fluid, There is alot of stool in the pelvis which looks like constipation, Departure - Departure Time of Disposition: 23:36 Disposition: Home, Self-Care 01 Condition: Fair Clinical Impression: Recent urinary tract infection, Constipation, Right ovarian cyst - Discharge Information Referrals: PCP,None [Primary Care Provider] - Forms: ED Department Discharge Care Plan Goals: push fluids, ativan 1 mg q6h prn for anxiety, norco 5/325 q76h prn for severe pain. Try to decrease the use of the narcotics, finish cipro, will notify of the urine culture. Use miralax daily to keep stools regular - My Orders Last 24 Hours: My Active Orders 02/24/19 20:30 Sodium Chloride 0.9% [Normal Saline] 1,000 ml IV ASDIRECTED 02/24/19 20:33 CULTURE URINE [RM] Stat 02/24/19 21:00 Sodium Chloride 0.9% [Normal Saline] 1,000 ml IV ASDIRECTED 02/24/19 22:13 Pelvis Non OB Ltd [US] Stat Transvaginal Non OB [US] Stat - Assessment/Plan Last 24 Hours: My Active Orders 02/24/19 20:30 Sodium Chloride 0.9% [Normal Saline] 1,000 ml IV ASDIRECTED 02/24/19 20:33 CULTURE URINE [RM] Stat 02/24/19 21:00 Sodium Chloride 0.9% [Normal Saline] 1,000 ml IV ASDIRECTED 02/24/19 22:13 Pelvis Non OB Ltd [US] Stat Transvaginal Non OB [US] Stat
[2019-02-24] MEDS ORDERED: HYDROmorphone 0.5 MG/0.5 ML Syringe IVPUSH ONE ×2 (20:21→21:52)
[2019-02-24] MEDS ORDERED: Sodium Chloride 0.9% 1,000 ML IV SCH ×2 (20:30→21:00)
[2019-02-24] MEDS ORDERED: LORazepam 2 MG/ML SDV IVPUSH ONE (20:32)
--- NOTE | 2019-02-24 21:47 | CRLCT ---
INDICATION: Right-sided flank pain TECHNIQUE: CT abdomen and pelvis without contrast. COMPARISON: Abdomen and pelvis CT 02/17/2019 FINDINGS: Lower chest: Unremarkable. Liver: Borderline hepatomegaly without focal lesion for the noncontrast technique. Gallbladder and bile ducts: Status post cholecystectomy. Normal diameter common duct. Pancreas: Unremarkable. No mass or inflammation. Spleen: Normal in size. No masses. Adrenal glands: Normal in size. No nodules. Kidneys: Normal in size. No masses, stones, or hydronephrosis. GI tract: No dilated loops of large or small intestine with a large amount of stool within the colon. Vasculature: Unremarkable. Pelvis: Right ovarian dominant follicle measuring 2.5 centimeters. Bladder unremarkable. Bones: Unremarkable for age. IMPRESSION: 1. No evidence of nephrolithiasis or hydronephrosis. 2. No dilated bowel or localized inflammation. Large amount of stool within the colon. 3. Borderline hepatomegaly. Please note that all CT scans at this facility use dose modulation, iterative reconstruction, and/or weight-based dosing when appropriate to reduce radiation dose to as low as reasonably achievable. Dictated by Trae Keys MD @ Feb 24 2019 9:34PM Signed by Dr. Trae Keys @ Feb 24 2019 9:45PM
[2019-02-24 22:10] VITALS: BP 104/72; PULSE 113
[2019-02-24] MEDS ORDERED: Magnesium Citrate Solution 296 ML Bottle PO ONE (22:50)
--- NOTE | 2019-02-25 00:10 | CRLUS ---
INDICATION: Right-sided abdominal pain COMPARISON: CT of the pelvis from earlier the same day. FINDINGS: Transvaginal and transabdominal ultrasound examination of the female pelvis was performed. Initial examination is performed with transabdominal technique and transvaginal technique is used for better visualization of the pelvic structures. The uterus is anteverted with no evidence of mass. It measures 6.6 x 3.2 by 4.6 cm. The endometrial lining is normal in thickness at 5 mm. Incidental note is made of a nabothian cyst in the cervix. There is a simple cyst in the right ovary measuring 2.3 x 1.6 x 2.4 centimeters, corresponding to the appearance on CT. The ovaries are normal in size, the right measuring 2.7 x 1.9 x 2.2 cm and the left measuring 3.5 x 1.9 x 1.9. cm. There is normal color and pulse doppler flow in both ovaries. There is a small amount of free fluid adjacent to the uterus on the left. IMPRESSION: Simple cyst in the right ovary measuring up to 2.4 centimeters in diameter, corresponding well with the appearance on today CT. No other abnormality seen in the ovaries. Normal appearance of the uterus. Small amount of free fluid adjacent to the uterus on the left, nonspecific. Dictated by Omer Warren MD @ Feb 25 2019 12:05AM Signed by Dr. Omer Warren @ Feb 25 2019 12:09AM
--- NOTE | 2019-02-26 10:21 | CRLUS ---
Final Report: INDICATION: Right-sided abdominal pain COMPARISON: CT of the pelvis from earlier the same day. FINDINGS: Transvaginal and transabdominal ultrasound examination of the female pelvis was performed. Initial examination is performed with transabdominal technique and transvaginal technique is used for better visualization of the pelvic structures. The uterus is anteverted with no evidence of mass. It measures 6.6 x 3.2 by 4.6 cm. The endometrial lining is normal in thickness at 5 mm. Incidental note is made of a nabothian cyst in the cervix. There is a simple cyst in the right ovary measuring 2.3 x 1.6 x 2.4 centimeters , corresponding to the appearance on CT. The ovaries are normal in size, the right measuring 2.7 x 1.9 x 2.2 cm and the left measuring 3.5 x 1.9 x 1.9. cm. There is normal color and pulse doppler flow in both ovaries. There is a small amount of free fluid adjacent to the uterus on the left. IMPRESSION: Simple cyst in the right ovary measuring up to 2.4 centimeters in diameter, corresponding well with the appearance on today CT. No other abnormality seen in the ovaries. Normal appearance of the uterus. Small amount of free fluid adjacent to the uterus on the left, nonspecific. Dictated by Omer Warren MD @ Feb 25 2019 12:05AM Signed by: Omer Warren MD @02/25/2019 12:09:21 AM (Electronic Signature) MTDD
== END 2019-02-24 23:57 | disposition home or self-care (01) ==
LOC: JP.ED 19:50
DX: N39.0 Urinary tract infection, site not specified (principal); K59.00 Constipation, unspecified; N83.201 Unspecified ovarian cyst, right side; G43.909 Migraine, unspecified, not intractable, without status migrainosus; F32.9 Major depressive disorder, single episode, unspecified; J45.909 Unspecified asthma, uncomplicated; Z87.891 Personal history of nicotine dependence; Z88.2 Allergy status to sulfonamides; Z88.5 Allergy status to narcotic agent; Z79.899 Other long term (current) drug therapy
CPT/HCPCS: 36415; 74176; 76830; 76857; 80053; 81001; 83605; 85025; 86140; 87086; 96361; 96374; 96375; 96376; 99285; A9270; J1170; J2060; J7030; 99284

== ENCOUNTER 2019-03-08 09:06 | Observation (INO) | payer MEDICAID ==
--- NOTE | 2019-03-08 09:46 | EDM.PDOC ---
ED HPI GENERAL MEDICAL PROBLEM - General Chief Complaint: Flank Pain Stated Complaint: KIDNEY PAIN Time Seen by Provider: 03/08/19 09:46 Source of Information: Reports: Patient History Limitations: Reports: No Limitations - History of Present Illness INITIAL COMMENTS - FREE TEXT/NARRATIVE: 43 years old female patient presented to the ER with a chief complaint of bilateral flank pain started 2 days ago, progressively getting worse, constant, no radiation. Worse with any movement. Better when she sits still. Has been vomiting several times last night. Had some chills but did not check her temperature. Denies any chest pain shortness breath. Denies any cough. Denies any abdominal pain. Denies any diarrhea or constipation. Denies any urinary symptom. No blood in the urine or stool. She was recently hospitalized for sepsis secondary to pyelonephritis 2 weeks ago. Right Flank Pain Score (Numeric/FACES): 9 - Related Data Allergies Allergy/AdvReac Type Severity Reaction Status Date / Time Sulfa (Sulfonamide Allergy Other Verified 03/08/19 09:59 Antibiotics) tramadol Allergy Itching Verified 03/08/19 09:59 Home Meds: Home Meds Cetirizine [ZyrTEC] 10 mg PO DAILY PRN 11/27/15 [History] Norgestimate-Ethinyl Estradiol [Ortho Tri-Cyclen 28 Tablet] 1 tab PO DAILY 11/26 [History] SUMAtriptan [Imitrex] 100 mg PO DAILY PRN 11/27/15 [History] Topiramate [Topamax] 300 mg PO BEDTIME 11/27/15 [History] buPROPion [Wellbutrin XL] 300 mg PO DAILY 11/27/15 [History] Ondansetron [Zofran ODT] 4 mg PO Q4H PRN #12 tab.dis 11/28/15 [Rx] DULoxetine [Cymbalta] 30 mg PO DAILY 02/17/19 [History] Montelukast [Singulair] 10 mg PO DAILY 02/17/19 [History] Past Medical History HEENT History: Reports: Allergic Rhinitis, Other (See Below) Other HEENT History: migraines, history of 2 concussions Respiratory History: Reports: Asthma Genitourinary History: Reports: Pyelonephritis, Renal Calculus Musculoskeletal History: Reports: Other (See Below) Other Musculoskeletal History: stress fractures on ankles and knees Neurological History: Reports: Migraines Psychiatric History: Reports: Depression - Infectious Disease History Infectious Disease History: Reports: Chicken Pox - Past Surgical History GI Surgical History: Reports: Appendectomy, Cholecystectomy Social & Family History - Family History Neurological: Reports: Cerebral Aneurysms - Tobacco Use Smoking Status *Q: Never Smoker - Caffeine Use Caffeine Use: Reports: Coffee - Recreational Drug Use Recreational Drug Use: No ED ROS GENERAL - Review of Systems Review Of Systems: Comprehensive ROS is negative, except as noted in HPI. ED EXAM, GI/ABD - Physical Exam Exam: See Below Exam Limited By: No Limitations General Appearance: Alert, WD/WN, No Apparent Distress Nose: Normal Inspection, Normal Mucosa, No Blood Throat/Mouth: Normal Inspection, Normal Lips, Normal Teeth, Normal Gums, Normal Oropharynx, Normal Voice, No Airway Compromise Head: Atraumatic, Normocephalic Neck: Normal Inspection, Supple, Non-Tender, Full Range of Motion Respiratory/Chest: No Respiratory Distress, Lungs Clear, Normal Breath Sounds, No Accessory Muscle Use, Chest Non-Tender Cardiovascular: Normal Peripheral Pulses, Regular Rate, Rhythm, No Edema, No Gallop, No JVD, No Murmur, No Rub GI/Abdominal Exam: Normal Bowel Sounds, Soft, Non-Tender, No Organomegaly, No Distention, No Abnormal Bruit, No Mass, Pelvis Stable Back Exam: CVA Tenderness (R), CVA Tenderness (L) Extremities: Normal Inspection, Normal Range of Motion, Non-Tender, Normal Capillary Refill, No Pedal Edema Neurological: Alert, Oriented, CN II-XII Intact, Normal Cognition, Normal Gait, Normal Reflexes, No Motor/Sensory Deficits Course - Vital Signs Last Recorded V/S: Last Vital Signs Temp 36.6 C 03/08/19 18:35 Pulse 72 03/08/19 18:35 Resp 16 03/08/19 18:35 BP 100/67 03/08/19 18:35 Pulse Ox 99 03/08/19 18:35 - Orders/Labs/Meds Orders: Active Orders 24 hr Category Date Time Status CULTURE BLOOD [BC] Urgent Lab 03/08/19 10:00 Received CULTURE BLOOD [BC] Urgent Lab 03/08/19 10:05 Received Sodium Chloride 0.9% [Saline Flush] Med 03/08/19 10:28 Active 10 ml FLUSH ONETIME PRN Blood Culture x2 Reflex Set [OM.PC] Urgent Oth 03/08/19 09:55 Ordered Medication Orders Acetaminophen (Tylenol) 650 mg PO Q4H PRN PRN Reason: Pain (Mild 1-3)/fever Last Admin: 03/08/19 18:03 Dose: 650 mg Bupropion HCl (Wellbutrin Xl) 300 mg PO DAILY [facility] Cetirizine HCl (Zyrtec) 10 mg PO DAILY PRN PRN Reason: Allergies Duloxetine HCl (Cymbalta) 30 mg PO DAILY [facility] Hydromorphone HCl (Dilaudid) 1 mg IVPUSH Q2H PRN PRN Reason: Pain (severe 7-10) Last Admin: 03/08/19 18:04 Dose: 1 mg Admin: 03/08/19 15:25 Dose: 1 mg Hydromorphone HCl (Dilaudid) 2 mg PO Q3H PRN PRN Reason: Pain (moderate 4-6) Sodium Chloride (Normal Saline) 1,000 mls @ 100 mls/hr IV ASDIRECTED [facility] Ibuprofen (Motrin) 600 mg PO Q6H PRN PRN Reason: Pain/Fever Last Admin: 03/08/19 15:45 Dose: 600 mg Lorazepam (Ativan) 0.5 mg IVPUSH Q4H PRN PRN Reason: Nausea/Vomiting Lorazepam (Ativan) 0.5 mg PO Q4H PRN PRN Reason: Muscle Spasm Magnesium Hydroxide (Milk Of Magnesia) 30 ml PO Q12H PRN PRN Reason: Constipation Montelukast Sodium (Singulair) 10 mg PO DAILY [facility] Norgestimate-Ethinyl Estradiol (Ortho Tri-Cyclen) Ptom 1 tab PO DAILY [facility] Ondansetron HCl (Zofran Odt) 4 mg PO Q6H PRN PRN Reason: Nausea able to take PO Ondansetron HCl (Zofran) 4 mg IV Q6H PRN PRN Reason: Nausea/Vomiting Senna/Docusate Sodium (Senna Plus) 1 tab PO BID PRN PRN Reason: Constipation Sodium Chloride (Saline Flush) 10 ml FLUSH ONETIME PRN PRN Reason: PER RADIOLOGY PROTOCOL Last Admin: 03/08/19 11:00 Dose: 10 ml Tizanidine HCl (Zanaflex) 4 mg PO Q6H PRN PRN Reason: Muscle Spasm Topiramate (Topamax) 300 mg PO BEDTIME [facility] Labs: Laboratory Tests 03/08/19 03/08/19 03/08/19 Range/Units 09:22 10:13 10:13 WBC 4.3 L (4.5-11.0) K/uL RBC 4.75 (3.30-5.50) M/uL Hgb 13.2 (12.0-15.0) g/dL Hct 40.8 (36.0-48.0) % MCV 86 (80-98) fL MCH 28 (27-31) pg MCHC 32 (32-36) % Plt Count 339 (150-400) K/uL Neut % (Auto) 39 (36-66) % Lymph % (Auto) 53 H (24-44) % [place] % (Auto) 5 (2-6) % Eos % (Auto) 2 (2-4) % Baso % (Auto) 2 H (0-1) % PT 11.0 (9.5-12.0) sec INR 1.02 (0.80-1.20) Sodium (140-148) mmol/L Potassium (3.6-5.2) mmol/L Chloride (100-108) mmol/L Carbon Dioxide (21-32) mmol/L Anion Gap (5.0-14.0) mmol/L BUN (7-18) mg/dL Creatinine (0.6-1.0) mg/dL Est Cr Clr Drug Dosing mL/min Estimated GFR (MDRD) (>60) Glucose (74-106) mg/dL Lactic Acid (0.4-2.0) mmol/L Calcium (8.5-10.1) mg/dL Total Bilirubin (0.2-1.0) mg/dL AST (15-37) U/L ALT (12-78) U/L Alkaline Phosphatase (46-116) U/L C-Reactive Protein (0.0-0.3) mg/dL Total Protein (6.4-8.2) g/dL Albumin (3.4-5.0) g/dL Globulin (2.3-3.5) g/dL Albumin/Globulin Ratio (1.2-2.2) Lipase (73-393) U/L HCG, Qual Urine Color Yellow (YELLOW) Urine Appearance Turbid A (CLEAR) Urine pH 7.5 (5.0-8.0) Ur Specific [place] 1.020 (1.008-1.030) Urine Protein Negative (NEGATIVE) mg/dL Urine Glucose (UA) Negative (NEGATIVE) mg/dL Urine Ketones Negative (NEGATIVE) mg/dL Urine Occult Blood Trace-intact H (NEGATIVE) Urine Nitrite Negative (NEGATIVE) Urine Bilirubin Negative (NEGATIVE) Urine Urobilinogen 0.2 (0.2-1.0) EU/dL Ur Leukocyte Esterase Negative (NEGATIVE) Urine RBC 0-5 (0-5) Urine WBC 0-5 (0-5) Ur Epithelial Cells Moderate Amorphous Sediment Packed Urine Bacteria Moderate Urine Mucus Not seen Urine Opiates Screen (NEGATIVE) Ur Oxycodone Screen (NEGATIVE) Urine Methadone Screen (NEGATIVE) Ur Propoxyphene Screen (NEGATIVE) Ur Barbiturates Screen (NEGATIVE) Ur Tricyclics Screen (NEGATIVE) Ur Phencyclidine Scrn (NEGATIVE) Ur Amphetamine Screen (NEGATIVE) U Methamphetamines Scrn (NEGATIVE) Urine MDMA Screen (NEGATIVE) U Benzodiazepines Scrn (NEGATIVE) U Cocaine Metab Screen (NEGATIVE) U Marijuana (THC) Screen (NEGATIVE) 03/08/19 03/08/19 03/08/19 Range/Units 10:13 10:13 10:13 WBC (4.5-11.0) K/uL RBC (3.30-5.50) M/uL Hgb (12.0-15.0) g/dL Hct (36.0-48.0) % MCV (80-98) fL MCH (27-31) pg MCHC (32-36) % Plt Count (150-400) K/uL Neut % (Auto) (36-66) % Lymph % (Auto) (24-44) % [place] % (Auto) (2-6) % Eos % (Auto) (2-4) % Baso % (Auto) (0-1) % PT (9.5-12.0) sec INR (0.80-1.20) Sodium 139 L (140-148) mmol/L Potassium 3.9 (3.6-5.2) mmol/L Chloride 105 (100-108) mmol/L Carbon Dioxide 21 (21-32) mmol/L Anion Gap 16.9 H (5.0-14.0) mmol/L BUN 12 (7-18) mg/dL Creatinine 1.0 (0.6-1.0) mg/dL Est Cr Clr Drug Dosing 49.09 mL/min Estimated GFR (MDRD) > 60 (>60) Glucose 88 (74-106) mg/dL Lactic Acid 1.2 (0.4-2.0) mmol/L Calcium 8.6 (8.5-10.1) mg/dL Total Bilirubin 0.4 D (0.2-1.0) mg/dL AST 14 L (15-37) U/L ALT 18 (12-78) U/L Alkaline Phosphatase 92 (46-116) U/L C-Reactive Protein < 0.05 (0.0-0.3) mg/dL Total Protein 7.8 (6.4-8.2) g/dL Albumin 3.9 (3.4-5.0) g/dL Globulin 3.9 H (2.3-3.5) g/dL Albumin/Globulin Ratio 1.0 L (1.2-2.2) Lipase 205 (73-393) U/L HCG, Qual Negative Urine Color (YELLOW) Urine Appearance (CLEAR) Urine pH (5.0-8.0) Ur Specific [place] (1.008-1.030) Urine Protein (NEGATIVE) mg/dL Urine Glucose (UA) (NEGATIVE) mg/dL Urine Ketones (NEGATIVE) mg/dL Urine Occult Blood (NEGATIVE) Urine Nitrite (NEGATIVE) Urine Bilirubin (NEGATIVE) Urine Urobilinogen (0.2-1.0) EU/dL Ur Leukocyte Esterase (NEGATIVE) Urine RBC (0-5) Urine WBC (0-5) Ur Epithelial Cells Amorphous Sediment Urine Bacteria Urine Mucus Urine Opiates Screen (NEGATIVE) Ur Oxycodone Screen (NEGATIVE) Urine Methadone Screen (NEGATIVE) Ur Propoxyphene Screen (NEGATIVE) Ur Barbiturates Screen (NEGATIVE) Ur Tricyclics Screen (NEGATIVE) Ur Phencyclidine Scrn (NEGATIVE) Ur Amphetamine Screen (NEGATIVE) U Methamphetamines Scrn (NEGATIVE) Urine MDMA Screen (NEGATIVE) U Benzodiazepines Scrn (NEGATIVE) U Cocaine Metab Screen (NEGATIVE) U Marijuana (THC) Screen (NEGATIVE) 03/08/19 Range/Units 12:38 WBC (4.5-11.0) K/uL RBC (3.30-5.50) M/uL Hgb (12.0-15.0) g/dL Hct (36.0-48.0) % MCV (80-98) fL MCH (27-31) pg MCHC (32-36) % Plt Count (150-400) K/uL Neut % (Auto) (36-66) % Lymph % (Auto) (24-44) % [place] % (Auto) (2-6) % Eos % (Auto) (2-4) % Baso % (Auto) (0-1) % PT (9.5-12.0) sec INR (0.80-1.20) Sodium (140-148) mmol/L Potassium (3.6-5.2) mmol/L Chloride (100-108) mmol/L Carbon Dioxide (21-32) mmol/L Anion Gap (5.0-14.0) mmol/L BUN (7-18) mg/dL Creatinine (0.6-1.0) mg/dL Est Cr Clr Drug Dosing mL/min Estimated GFR (MDRD) (>60) Glucose (74-106) mg/dL Lactic Acid (0.4-2.0) mmol/L Calcium (8.5-10.1) mg/dL Total Bilirubin (0.2-1.0) mg/dL AST (15-37) U/L ALT (12-78) U/L Alkaline Phosphatase (46-116) U/L C-Reactive Protein (0.0-0.3) mg/dL Total Protein (6.4-8.2) g/dL Albumin (3.4-5.0) g/dL Globulin (2.3-3.5) g/dL Albumin/Globulin Ratio (1.2-2.2) Lipase (73-393) U/L HCG, Qual Urine Color (YELLOW) Urine Appearance (CLEAR) Urine pH (5.0-8.0) Ur Specific [place] (1.008-1.030) Urine Protein (NEGATIVE) mg/dL Urine Glucose (UA) (NEGATIVE) mg/dL Urine Ketones (NEGATIVE) mg/dL Urine Occult Blood (NEGATIVE) Urine Nitrite (NEGATIVE) Urine Bilirubin (NEGATIVE) Urine Urobilinogen (0.2-1.0) EU/dL Ur Leukocyte Esterase (NEGATIVE) Urine RBC (0-5) Urine WBC (0-5) Ur Epithelial Cells Amorphous Sediment Urine Bacteria Urine Mucus Urine Opiates Screen Negative (NEGATIVE) Ur Oxycodone Screen Negative (NEGATIVE) Urine Methadone Screen Negative (NEGATIVE) Ur Propoxyphene Screen Negative (NEGATIVE) Ur Barbiturates Screen Negative (NEGATIVE) Ur Tricyclics Screen Positive H (NEGATIVE) Ur Phencyclidine Scrn Negative (NEGATIVE) Ur Amphetamine Screen Negative (NEGATIVE) U Methamphetamines Scrn Negative (NEGATIVE) Urine MDMA Screen Negative (NEGATIVE) U Benzodiazepines Scrn Negative (NEGATIVE) U Cocaine Metab Screen Negative (NEGATIVE) U Marijuana (THC) Screen Negative (NEGATIVE) Meds: Medications Generic Name Dose Route Start Last Admin Trade Name Freq PRN Reason Stop Dose Admin Acetaminophen 650 mg 03/08/19 14:36 03/08/19 18:03 Tylenol PO 650 mg Q4H PRN Administration Pain (Mild 1-3)/fever Bupropion HCl 300 mg 03/09/19 09:00 Wellbutrin Xl PO DAILY [facility] Cetirizine HCl 10 mg 03/08/19 14:36 Zyrtec PO DAILY PRN Allergies Duloxetine HCl 30 mg 03/09/19 09:00 Cymbalta PO DAILY [facility] Hydromorphone HCl 1 mg 03/08/19 14:36 03/08/19 18:04 Dilaudid IVPUSH 1 mg Q2H PRN Administration Pain (severe 7-10) Hydromorphone HCl 2 mg 03/08/19 14:36 Dilaudid PO Q3H PRN Pain (moderate 4-6) Sodium Chloride 1,000 mls @ 100 mls/hr 03/08/19 14:36 Normal Saline IV ASDIRECTED [facility] Ibuprofen 600 mg 03/08/19 14:36 03/08/19 15:45 Motrin PO 600 mg Q6H PRN Administration Pain/Fever Lorazepam 0.5 mg 03/08/19 14:36 Ativan IVPUSH Q4H PRN Nausea/Vomiting Lorazepam 0.5 mg 03/08/19 14:36 Ativan PO Q4H PRN Muscle Spasm Magnesium Hydroxide 30 ml 03/08/19 14:36 Milk Of Magnesia PO Q12H PRN Constipation Montelukast Sodium 10 mg 03/09/19 09:00 Singulair PO DAILY [facility] Norgestimate-Ethinyl 1 tab 03/09/19 09:00 Estradiol (Ortho PO Tri-Cyclen) Ptom DAILY [facility] Ondansetron HCl 4 mg 03/08/19 14:36 Zofran Odt PO Q6H PRN Nausea able to take PO Ondansetron HCl 4 mg 03/08/19 14:36 Zofran IV Q6H PRN Nausea/Vomiting Senna/Docusate Sodium 1 tab 03/08/19 14:36 Senna Plus PO BID PRN Constipation Sodium Chloride 10 ml 03/08/19 10:28 03/08/19 11:00 Saline Flush FLUSH 10 ml ONETIME PRN Administration PER RADIOLOGY PROTOCOL Tizanidine HCl 4 mg 03/08/19 14:36 Zanaflex PO Q6H PRN Muscle Spasm Topiramate 300 mg 03/08/19 21:00 Topamax PO BEDTIME [facility] Discontinued Medications Generic Name Dose Route Start Last Admin Trade Name Freq PRN Reason Stop Dose Admin Sodium Chloride 1,000 mls @ 999 mls/hr 03/08/19 09:58 03/08/19 10:08 Normal Saline IV 03/08/19 10:58 999 mls/hr .BOLUS STA Administration Sodium Chloride 70 mls @ 3 mls/sec 03/08/19 10:28 03/08/19 11:00 Normal Saline IV 03/08/19 10:29 3 mls/sec ONETIME ONE Administration Iopamidol 63 ml 03/08/19 10:28 03/08/19 11:00 Isovue-300 (61%) IV 63 ml . DIRECTED PRN Administration RADIOLOGY EXAM Morphine Sulfate 4 mg 03/08/19 09:59 03/08/19 10:09 Morphine IVPUSH 03/08/19 10:00 4 mg ONETIME ONE Administration Morphine Sulfate 4 mg 03/08/19 12:41 03/08/19 12:46 Morphine IVPUSH 03/08/19 12:42 4 mg ONETIME ONE Administration Ondansetron HCl 4 mg 03/08/19 09:58 03/08/19 10:13 Zofran IVPUSH 03/08/19 09:59 4 mg ONETIME ONE Administration Ondansetron HCl 4 mg 03/08/19 12:41 03/08/19 12:50 Zofran IVPUSH 03/08/19 12:42 4 mg ONETIME ONE Administration Tizanidine HCl 4 mg 03/08/19 14:00 03/08/19 14:14 Zanaflex PO 03/08/19 14:01 4 mg ONETIME ONE Administration - Re-Assessments/Exams Free Text/Narrative Re-Assessment/Exam: 03/08/19 10:02 Patient was seen and examined shortly after arrival. Stable. Given 1 L normal saline bolus, 4 mg IV morphine x 2, 4 mg IV Zofran, lab and imaging reviewed with the patient. No significant acute abnormalities. Unclear etiology of her pain at this point. No sign of pyelonephritis. This is most likely Muskuloskletal pain. Patient still complaining of severe pain, crying. I did consulted with Dr. Lemus hospitalist cotton roll packer and he accepted admission for further management. Patient agrees with the plan. Stable for admission. 03/08/19 19:09 Departure - Departure Time of Disposition: 16:30 Disposition: Admitted As Inpatient 68 Condition: Good Clinical Impression: Bilateral flank pain - Discharge Information Sepsis Event Note - Evaluation Sepsis Screening Result: Possible Sepsis Risk - Focused Exam Vital Signs: Vital Signs Temp Pulse Resp BP Pulse Ox 03/08/19 12:53 102 H 20 123/86 100 03/08/19 09:23 36.3 C 107 H 24 H 133/85 100 03/08/19 09:17 36.3 C 107 H 24 H 133/85 100 Date Exam was Performed: 03/08/19 Time Exam was Performed: 19:09 - My Orders Last 24 Hours: My Active Orders 03/08/19 09:55 Blood Culture x2 Reflex Set [OM.PC] Urgent 03/08/19 10:00 CULTURE BLOOD [BC] Urgent 03/08/19 10:05 CULTURE BLOOD [BC] Urgent 03/08/19 10:28 Sodium Chloride 0.9% [Saline Flush] 10 ml FLUSH ONETIME PRN - Assessment/Plan Last 24 Hours: My Active Orders 03/08/19 09:55 Blood Culture x2 Reflex Set [OM.PC] Urgent 03/08/19 10:00 CULTURE BLOOD [BC] Urgent 03/08/19 10:05 CULTURE BLOOD [BC] Urgent 03/08/19 10:28 Sodium Chloride 0.9% [Saline Flush] 10 ml FLUSH ONETIME PRN Plan: Admission to Dr. Lemus
[2019-03-08] MEDS ORDERED: Sodium Chloride 0.9% 1,000 ML IV STA (09:58)
[2019-03-08] MEDS ORDERED: Ondansetron 4 MG/2 ML SDV IVPUSH ONE ×2 (09:58→12:41)
[2019-03-08] MEDS ORDERED: Morphine 4 MG/ML Syringe IVPUSH ONE ×2 (09:59→12:41)
[2019-03-08] MEDS ORDERED: Iopamidol 612 MG/ML 100 ML Bottle IV PRN (10:28)
[2019-03-08] MEDS ORDERED: Sodium Chloride 0.9% 10 ML Syringe FLUSH PRN (10:28)
--- NOTE | 2019-03-08 11:52 | CRLCT ---
INDICATION: Bilateral flank pain TECHNIQUE: CT abdomen and pelvis acquired with 63 cc Isovue-300 IV contrast. COMPARISON: February 24, 2019. FINDINGS: Lower chest: Unremarkable. Liver: Moderately enlarged. Normal in attenuation. No focal lesions. Gallbladder and bile ducts: Post cholecystectomy with moderate secondary biliary dilatation. Pancreas: Unremarkable. No mass or inflammation. Spleen: Unremarkable. Normal in size. No masses. Adrenal glands: Unremarkable. No nodules. Kidneys: Unremarkable. No masses, stones, or hydronephrosis. GI tract: Unremarkable. Normal in caliber. No sign of mass or inflammation. Appendix is difficult to discern. No signs of appendicitis. Vasculature: Unremarkable. Mesenteric arteries are patent. Lymph nodes: No lymphadenopathy. Omentum/Peritoneum/Abdominal Wall: Unremarkable. No sign of mass or infiltration. No free air or significant free fluid. Pelvis: A simple 2.5 cm cyst is in the right ovary. Uterus is deviated to the right. Bones: Unremarkable for age. IMPRESSION: 1. Nonspecific hepatomegaly. 2. Simple 2.5 cm right ovarian cyst without evidence of rupture. This is almost certainly benign and does not require follow-up evaluation. 3. Remainder of the exam is unremarkable. No other finding to explain flank pain. Dictated by Zachary Marroquin MD @ 03/08/2019 11:51:01 AM Please note that all CT scans at this facility use dose modulation, iterative reconstruction, and/or weight-based dosing when appropriate to reduce radiation dose to as low as reasonably achievable. Dictated by: Zachary Marroquin MD @ 03/08/2019 11:51:07 (Electronically Signed)
[2019-03-08] MEDS ORDERED: tiZANidine 4 MG Tab PO ONE (14:00)
--- NOTE | 2019-03-08 14:03 | PCM.HP.2 ---
H&P History of Present Illness - General Date of Service: 03/08/19 Admit Problem/Dx: Admission Diagnosis/Problem Admission Diagnosis/Problem Back pain Source of Information: Patient, Family, Provider History Limitations: Reports: No Limitations - History of Present Illness Initial Comments - Free Text/Narative: CC: my back hurts bad HPI: Cheryl presents to the emergency room today with persistent mid back and bilateral flank pain. She has had pain off and on for the past several weeks with ups and downs. She describes sharp pain in the middle of her back that radiates to the flank area. She has had some good days but more bad days. Pain is worse after prolonged activity. She has had some relief with pain medications and lorazepam but no relief from nonsteroidal anti-inflammatories or cyclobenzaprine. Pain seems to be worse when she is laying down. No complaints of neck pain. She does endorse significant muscle spasms as well. She does not think she has had any fevers but has had some chills. No complaints of dysuria or increased urinary frequency at this time. Pain was severe yesterday and she has had multiple episodes of nausea and vomiting over the past 24 hours. No diarrhea. No sick contacts. No numbness or tingling down arms or legs. Sometimes the pain does radiate from the right flank down into the right leg. Work-up in the emergency room so far has been fairly reassuring. Laboratory studies normal. She did have moderate bacteria on the urinalysis but no significant pyuria or hematuria. CT scan of the abdomen and pelvis was unremarkable. She will be admitted for pain control and further work-up. Right Flank Pain Score (Numeric/FACES): 9 - Related Data Allergies/Adverse Reactions: Allergies Allergy/AdvReac Type Severity Reaction Status Date / Time Sulfa (Sulfonamide Allergy Other Verified 03/08/19 09:59 Antibiotics) tramadol Allergy Itching Verified 03/08/19 09:59 Home Medications: Home Meds Cetirizine [ZyrTEC] 10 mg PO DAILY PRN 11/27/15 [History] Norgestimate-Ethinyl Estradiol [Ortho Tri-Cyclen 28 Tablet] 1 tab PO DAILY 11/26 [History] SUMAtriptan [Imitrex] 100 mg PO DAILY PRN 11/27/15 [History] Topiramate [Topamax] 300 mg PO BEDTIME 11/27/15 [History] buPROPion [Wellbutrin XL] 300 mg PO DAILY 11/27/15 [History] Ondansetron [Zofran ODT] 4 mg PO Q4H PRN #12 tab.dis 11/28/15 [Rx] DULoxetine [Cymbalta] 30 mg PO DAILY 02/17/19 [History] Montelukast [Singulair] 10 mg PO DAILY 02/17/19 [History] Past Medical History HEENT History: Reports: Allergic Rhinitis, Other (See Below) Other HEENT History: migraines, history of 2 concussions Respiratory History: Reports: Asthma Genitourinary History: Reports: Pyelonephritis, Renal Calculus Musculoskeletal History: Reports: Other (See Below) Other Musculoskeletal History: stress fractures on ankles and knees Neurological History: Reports: Migraines Psychiatric History: Reports: Depression - Infectious Disease History Infectious Disease History: Reports: Chicken Pox - Past Surgical History GI Surgical History: Reports: Appendectomy, Cholecystectomy Social & Family History - Family History Neurological: Reports: Cerebral Aneurysms - Tobacco Use Smoking Status *Q: Never Smoker - Caffeine Use Caffeine Use: Reports: Coffee - Alcohol Use Alcohol Use History: No - Recreational Drug Use Recreational Drug Use: No H&P Review of Systems - Review of Systems: Review Of Systems: See Below Free Text/Narrative: A complete 12 point review of systems was obtained. Pertinent positives and negatives are noted in the history of present illness. All other systems were reviewed and were negative except as noted. Exam - Exam Exam: See Below - Vital Signs Vital Signs: Last Vital Signs Temp 36.3 C 03/08/19 09:23 Pulse 102 H 03/08/19 12:53 Resp 20 03/08/19 12:53 BP 123/86 03/08/19 12:53 Pulse Ox 100 03/08/19 12:53 Weight: 42 kg - Exam Quality Assessment: No: Supplemental Oxygen General: Alert, Oriented, Cooperative, Mild Distress HEENT: Conjunctiva Clear. No: Mucosa Moist & [place] (dry), Scleral Icterus Neck: Supple, Trachea Midline. No: Lymphadenopathy Lungs: Clear to Auscultation, Normal Respiratory Effort Cardiovascular: Regular Rate, Regular Rhythm GI/Abdominal Exam: Normal Bowel Sounds, Soft, No Distention, Tender (mild LUQ and RUQ) Back Exam: Normal Inspection, Muscle Spasm, Paraspinal Tenderness. No: Full Range of Motion Extremities: No Pedal Edema. No: Increased Warmth Skin: Warm, Dry Neuro Extensive - Mental Status: Alert, Oriented x3, Nl Response to Commands Neuro Extensive - Motor, Sensory, Reflexes: No: Dysarthria, Abnormal Motor, Tremor DTR: 2+: Patella (L), Patella (R) Psychiatric: Alert, Normal Affect - Patient Data Lab Results Last 24 hrs: Laboratory Results - last 24 hr 03/08/19 03/08/19 03/08/19 Range/Units 09:22 10:13 10:13 WBC 4.3 L (4.5-11.0) K/uL RBC 4.75 (3.30-5.50) M/uL Hgb 13.2 (12.0-15.0) g/dL Hct 40.8 (36.0-48.0) % MCV 86 (80-98) fL MCH 28 (27-31) pg MCHC 32 (32-36) % Plt Count 339 (150-400) K/uL Neut % (Auto) 39 (36-66) % Lymph % (Auto) 53 H (24-44) % [place] % (Auto) 5 (2-6) % Eos % (Auto) 2 (2-4) % Baso % (Auto) 2 H (0-1) % PT 11.0 (9.5-12.0) sec INR 1.02 (0.80-1.20) Sodium (140-148) mmol/L Potassium (3.6-5.2) mmol/L Chloride (100-108) mmol/L Carbon Dioxide (21-32) mmol/L Anion Gap (5.0-14.0) mmol/L BUN (7-18) mg/dL Creatinine (0.6-1.0) mg/dL Est Cr Clr Drug Dosing mL/min Estimated GFR (MDRD) (>60) Glucose (74-106) mg/dL Lactic Acid (0.4-2.0) mmol/L Calcium (8.5-10.1) mg/dL Total Bilirubin (0.2-1.0) mg/dL AST (15-37) U/L ALT (12-78) U/L Alkaline Phosphatase (46-116) U/L C-Reactive Protein (0.0-0.3) mg/dL Total Protein (6.4-8.2) g/dL Albumin (3.4-5.0) g/dL Globulin (2.3-3.5) g/dL Albumin/Globulin Ratio (1.2-2.2) Lipase (73-393) U/L HCG, Qual Urine Color Yellow (YELLOW) Urine Appearance Turbid A (CLEAR) Urine pH 7.5 (5.0-8.0) Ur Specific [place] 1.020 (1.008-1.030) Urine Protein Negative (NEGATIVE) mg/dL Urine Glucose (UA) Negative (NEGATIVE) mg/dL Urine Ketones Negative (NEGATIVE) mg/dL Urine Occult Blood Trace-intact H (NEGATIVE) Urine Nitrite Negative (NEGATIVE) Urine Bilirubin Negative (NEGATIVE) Urine Urobilinogen 0.2 (0.2-1.0) EU/dL Ur Leukocyte Esterase Negative (NEGATIVE) Urine RBC 0-5 (0-5) Urine WBC 0-5 (0-5) Ur Epithelial Cells Moderate Amorphous Sediment Packed Urine Bacteria Moderate Urine Mucus Not seen Urine Opiates Screen (NEGATIVE) Ur Oxycodone Screen (NEGATIVE) Urine Methadone Screen (NEGATIVE) Ur Propoxyphene Screen (NEGATIVE) Ur Barbiturates Screen (NEGATIVE) Ur Tricyclics Screen (NEGATIVE) Ur Phencyclidine Scrn (NEGATIVE) Ur Amphetamine Screen (NEGATIVE) U Methamphetamines Scrn (NEGATIVE) Urine MDMA Screen (NEGATIVE) U Benzodiazepines Scrn (NEGATIVE) U Cocaine Metab Screen (NEGATIVE) U Marijuana (THC) Screen (NEGATIVE) 03/08/19 03/08/19 03/08/19 Range/Units 10:13 10:13 10:13 WBC (4.5-11.0) K/uL RBC (3.30-5.50) M/uL Hgb (12.0-15.0) g/dL Hct (36.0-48.0) % MCV (80-98) fL MCH (27-31) pg MCHC (32-36) % Plt Count (150-400) K/uL Neut % (Auto) (36-66) % Lymph % (Auto) (24-44) % [place] % (Auto) (2-6) % Eos % (Auto) (2-4) % Baso % (Auto) (0-1) % PT (9.5-12.0) sec INR (0.80-1.20) Sodium 139 L (140-148) mmol/L Potassium 3.9 (3.6-5.2) mmol/L Chloride 105 (100-108) mmol/L Carbon Dioxide 21 (21-32) mmol/L Anion Gap 16.9 H (5.0-14.0) mmol/L BUN 12 (7-18) mg/dL Creatinine 1.0 (0.6-1.0) mg/dL Est Cr Clr Drug Dosing 49.09 mL/min Estimated GFR (MDRD) > 60 (>60) Glucose 88 (74-106) mg/dL Lactic Acid 1.2 (0.4-2.0) mmol/L Calcium 8.6 (8.5-10.1) mg/dL Total Bilirubin 0.4 D (0.2-1.0) mg/dL AST 14 L (15-37) U/L ALT 18 (12-78) U/L Alkaline Phosphatase 92 (46-116) U/L C-Reactive Protein < 0.05 (0.0-0.3) mg/dL Total Protein 7.8 (6.4-8.2) g/dL Albumin 3.9 (3.4-5.0) g/dL Globulin 3.9 H (2.3-3.5) g/dL Albumin/Globulin Ratio 1.0 L (1.2-2.2) Lipase 205 (73-393) U/L HCG, Qual Negative Urine Color (YELLOW) Urine Appearance (CLEAR) Urine pH (5.0-8.0) Ur Specific [place] (1.008-1.030) Urine Protein (NEGATIVE) mg/dL Urine Glucose (UA) (NEGATIVE) mg/dL Urine Ketones (NEGATIVE) mg/dL Urine Occult Blood (NEGATIVE) Urine Nitrite (NEGATIVE) Urine Bilirubin (NEGATIVE) Urine Urobilinogen (0.2-1.0) EU/dL Ur Leukocyte Esterase (NEGATIVE) Urine RBC (0-5) Urine WBC (0-5) Ur Epithelial Cells Amorphous Sediment Urine Bacteria Urine Mucus Urine Opiates Screen (NEGATIVE) Ur Oxycodone Screen (NEGATIVE) Urine Methadone Screen (NEGATIVE) Ur Propoxyphene Screen (NEGATIVE) Ur Barbiturates Screen (NEGATIVE) Ur Tricyclics Screen (NEGATIVE) Ur Phencyclidine Scrn (NEGATIVE) Ur Amphetamine Screen (NEGATIVE) U Methamphetamines Scrn (NEGATIVE) Urine MDMA Screen (NEGATIVE) U Benzodiazepines Scrn (NEGATIVE) U Cocaine Metab Screen (NEGATIVE) U Marijuana (THC) Screen (NEGATIVE) 03/08/19 Range/Units 12:38 WBC (4.5-11.0) K/uL RBC (3.30-5.50) M/uL Hgb (12.0-15.0) g/dL Hct (36.0-48.0) % MCV (80-98) fL MCH (27-31) pg MCHC (32-36) % Plt Count (150-400) K/uL Neut % (Auto) (36-66) % Lymph % (Auto) (24-44) % [place] % (Auto) (2-6) % Eos % (Auto) (2-4) % Baso % (Auto) (0-1) % PT (9.5-12.0) sec INR (0.80-1.20) Sodium (140-148) mmol/L Potassium (3.6-5.2) mmol/L Chloride (100-108) mmol/L Carbon Dioxide (21-32) mmol/L Anion Gap (5.0-14.0) mmol/L BUN (7-18) mg/dL Creatinine (0.6-1.0) mg/dL Est Cr Clr Drug Dosing mL/min Estimated GFR (MDRD) (>60) Glucose (74-106) mg/dL Lactic Acid (0.4-2.0) mmol/L Calcium (8.5-10.1) mg/dL Total Bilirubin (0.2-1.0) mg/dL AST (15-37) U/L ALT (12-78) U/L Alkaline Phosphatase (46-116) U/L C-Reactive Protein (0.0-0.3) mg/dL Total Protein (6.4-8.2) g/dL Albumin (3.4-5.0) g/dL Globulin (2.3-3.5) g/dL Albumin/Globulin Ratio (1.2-2.2) Lipase (73-393) U/L HCG, Qual Urine Color (YELLOW) Urine Appearance (CLEAR) Urine pH (5.0-8.0) Ur Specific [place] (1.008-1.030) Urine Protein (NEGATIVE) mg/dL Urine Glucose (UA) (NEGATIVE) mg/dL Urine Ketones (NEGATIVE) mg/dL Urine Occult Blood (NEGATIVE) Urine Nitrite (NEGATIVE) Urine Bilirubin (NEGATIVE) Urine Urobilinogen (0.2-1.0) EU/dL Ur Leukocyte Esterase (NEGATIVE) Urine RBC (0-5) Urine WBC (0-5) Ur Epithelial Cells Amorphous Sediment Urine Bacteria Urine Mucus Urine Opiates Screen Negative (NEGATIVE) Ur Oxycodone Screen Negative (NEGATIVE) Urine Methadone Screen Negative (NEGATIVE) Ur Propoxyphene Screen Negative (NEGATIVE) Ur Barbiturates Screen Negative (NEGATIVE) Ur Tricyclics Screen Positive H (NEGATIVE) Ur Phencyclidine Scrn Negative (NEGATIVE) Ur Amphetamine Screen Negative (NEGATIVE) U Methamphetamines Scrn Negative (NEGATIVE) Urine MDMA Screen Negative (NEGATIVE) U Benzodiazepines Scrn Negative (NEGATIVE) U Cocaine Metab Screen Negative (NEGATIVE) U Marijuana (THC) Screen Negative (NEGATIVE) Result Diagrams: 03/08/19 10:13 03/08/19 10:13 Imaging Impressions Last 24 hrs: CT scan of the abdomen and pelvis -images were personally reviewed -this contrast CT scan did not show any significant abnormalities. No bony abnormalities in the lumbar spine. No kidney stones were noted. No inflammation around the kidneys. No bowel inflammation. CT thoracic spine- Sepsis Event Note - Evaluation Sepsis Screening Result: Possible Sepsis Risk - Focused Exam Vital Signs: Vital Signs Temp Pulse Resp BP Pulse Ox 03/08/19 12:53 102 H 20 123/86 100 03/08/19 09:23 36.3 C 107 H 24 H 133/85 100 03/08/19 09:17 36.3 C 107 H 24 H 133/85 100 Date Exam was Performed: 03/09/19 Time Exam was Performed: 01:20 *Q Meaningful Use (ADM) - VTE Risk Assess *Q Each Risk Factor Represents 1 Point: Age 41 - 59 years Total Score 1 Point Risk Factors: 1 Each Risk Factor Represents 2 Points: None Total Score 2 Point Risk Factors: 0 Each Risk Factor Represents 3 Points: None Total Score 3 Point Risk Factors: 0 Each Risk Factor Represents 5 Points: None Total Score 5 Point Risk Factors: 0 Venous Thromboembolism Risk Factor Score *Q: 1 - Problem List (1) Acute thoracic back pain SNOMED Code(s): 632816178 ICD Code: M54.6 - PAIN IN THORACIC SPINE Status: Acute Current Visit: Yes Qualifiers: Back pain laterality: midline Qualified Code(s): M54.6 - Pain in thoracic spine Problem List Initiated/Reviewed/Updated: Yes Orders Last 24hrs: Active Orders 24 hr Category Date Time Status Patient Status Manage Transfer [TRANSFER] Routine ADT 03/08/19 13:54 Ordered Thoracic Spine wo Cont [CT] Stat Exams 03/08/19 13:52 Ordered CULTURE BLOOD [BC] Urgent Lab 03/08/19 10:00 Received CULTURE BLOOD [BC] Urgent Lab 03/08/19 10:05 Received Sodium Chloride 0.9% [Saline Flush] Med 03/08/19 10:28 Active 10 ml FLUSH ONETIME PRN Blood Culture x2 Reflex Set [OM.PC] Urgent Oth 03/08/19 09:55 Ordered Resuscitation Status Routine Resus Stat 03/08/19 13:55 Ordered Medication Orders Sodium Chloride (Saline Flush) 10 ml FLUSH ONETIME PRN PRN Reason: PER RADIOLOGY PROTOCOL Last Admin: 03/08/19 11:00 Dose: 10 ml Assessment/Plan Comment:: ASSESSMENT AND PLAN - Acute thoracic back pain-no acute abnormalities on the CT scan of the abdomen and pelvis. Laboratory studies unremarkable including a CRP that was undetectable. Musculoskeletal abnormality most likely. CT of the thoracic spine did not show significant abnormalities. I suspect that she has a significant component of muscle spasm and myofascial pain. -Trial of muscle relaxer -Pain control with hydromorphone -Heating pad Maintenance issues - - DVT prophylaxis -mechanical - GI prophylaxis -not indicated - Nutrition -full liquids, advance when nausea and vomiting resolve - Mercer catheter -not indicated CODE STATUS -full code Admission justification -patient will be referred observation status for pain control and expedited work-up Disposition -I would anticipate discharge home after the hospital stay Primary care physician - Dr. Kasie Lemus M.D. - Mortality Measure Prognosis:: Good
[2019-03-08] MEDS ORDERED: Magnesium Hydroxide 400 MG/5 ML Susp 30 ML Cup PO PRN (14:36)
[2019-03-08] MEDS ORDERED: Cetirizine 10 MG Tab PO PRN (14:36)
[2019-03-08] MEDS ORDERED: Sodium Chloride 0.9% 1,000 ML IV SCH (14:36)
[2019-03-08] MEDS ORDERED: LORazepam 2 MG/ML SDV IVPUSH PRN (14:36)
[2019-03-08] MEDS: HYDROmorphone 1 MG/ML Syringe IVPUSH PRN ×2 (15:25→18:04)
--- NOTE | 2019-03-08 15:27 | CRLCT ---
TECHNIQUE: Noncontrast CT thoracic spine. Three plane reformatted images. INDICATION: Thoracic back pain with radiation, recent trauma. FINDINGS: No acute thoracic spine fracture or malalignment. Canal and foramina are patent. Mild disc bulging at T11-12. Remainder of the thoracic spine is normal. Paravertebral soft tissues are unremarkable. Incidentally noted is contrast in the renal collecting systems from the abdomen pelvis CT of the same day. IMPRESSION: No acute thoracic spine findings. Dictated by Taye Duffy MD @ 03/08/2019 3:25:25 PM Please note that all CT scans at this facility use dose modulation, iterative reconstruction, and/or weight-based dosing when appropriate to reduce radiation dose to as low as reasonably achievable. Dictated by: Taye Duffy MD @ 03/08/2019 15:25:31 (Electronically Signed)
[2019-03-08] MEDS: Ibuprofen 600 MG Tab PO PRN ×2 (15:45→23:18)
[2019-03-08] MEDS: Acetaminophen 325 MG Tab PO PRN (18:03)
[2019-03-08] MEDS: Topiramate 100 MG Tab PO SCH (20:37)
[2019-03-08] MEDS: HYDROmorphone 2 MG Tab PO PRN (20:46)
[2019-03-09] MEDS: HYDROmorphone 2 MG Tab PO PRN ×4 (00:59→21:39)
[2019-03-09] MEDS: Ondansetron 4 MG/2 ML SDV IV PRN ×2 (01:04→07:40)
[2019-03-09] MEDS: tiZANidine 4 MG Tab PO PRN ×3 (01:10→14:46)
[2019-03-09] MEDS: HYDROmorphone 1 MG/ML Syringe IVPUSH PRN ×4 (01:31→15:53)
[2019-03-09] MEDS: DULoxetine 30 MG Cap PO SCH (08:45)
[2019-03-09] MEDS: Montelukast 10 MG Tab PO SCH (08:46)
[2019-03-09] MEDS: buPROPion 150 MG Tab.ER PO SCH (08:46)
[2019-03-09] MEDS: Ibuprofen 600 MG Tab PO PRN ×2 (09:33→15:39)
[2019-03-09] MEDS: NORGESTIMATE ETHINYL ESTRADIOL PO SCH (10:39)
--- NOTE | 2019-03-09 11:01 | PCM.PN ---
- General Info Date of Service: 03/09/19 Subjective Update: No acute events overnight but she did still have some nausea and mild vomiting. No fevers. The muscle relaxer seems to help the back pain the most. Pain is somewhat better today but still moderate to moderately severe. Moving a little better. Able to tolerate some breakfast. Cultures obtained yesterday in the emergency room are still negative. Functional Status: Reports: Pain Controlled, Tolerating Diet - Review of Systems General: Denies: Fever Musculoskeletal: Reports: Back Pain - Patient Data Vitals - Most Recent: Last Vital Signs Temp 36.9 C 03/09/19 07:58 Pulse 73 03/09/19 07:58 Resp 16 03/09/19 07:58 BP 102/66 03/09/19 07:58 Pulse Ox 100 03/09/19 07:58 Weight - Most Recent: 42 kg I&O - Last 24 Hours: Intake & Output 03/08/19 03/09/19 03/09/19 22:59 06:59 14:59 Intake Total 304 2876 Output Total 750 600 Balance -446 2276 Lab Results Last 24 Hours: Laboratory Results - last 24 hr 03/08/19 Range/Units 12:38 Urine Opiates Screen Negative (NEGATIVE) Ur Oxycodone Screen Negative (NEGATIVE) Urine Methadone Screen Negative (NEGATIVE) Ur Propoxyphene Screen Negative (NEGATIVE) Ur Barbiturates Screen Negative (NEGATIVE) Ur Tricyclics Screen Positive H (NEGATIVE) Ur Phencyclidine Scrn Negative (NEGATIVE) Ur Amphetamine Screen Negative (NEGATIVE) U Methamphetamines Scrn Negative (NEGATIVE) Urine MDMA Screen Negative (NEGATIVE) U Benzodiazepines Scrn Negative (NEGATIVE) U Cocaine Metab Screen Negative (NEGATIVE) U Marijuana (THC) Screen Negative (NEGATIVE) Jeff Results Last 24 Hours: Microbiology 03/08/19 10:05 Aerobic Blood Culture - Preliminary Blood - Venous - Iv Start NO GROWTH AFTER 1 DAY Anaerobic Blood Culture - Preliminary NO GROWTH AFTER 1 DAY 03/08/19 10:00 Aerobic Blood Culture - Preliminary Blood - Arm, Left NO GROWTH AFTER 1 DAY Anaerobic Blood Culture - Preliminary NO GROWTH AFTER 1 DAY Med Orders - Current: Current Medications Acetaminophen (Tylenol) 650 mg PO Q4H PRN PRN Reason: Pain (Mild 1-3)/fever Last Admin: 03/08/19 18:03 Dose: 650 mg Bupropion HCl (Wellbutrin Xl) 300 mg PO DAILY [facility] Last Admin: 03/09/19 08:46 Dose: 300 mg Cetirizine HCl (Zyrtec) 10 mg PO DAILY PRN PRN Reason: Allergies Duloxetine HCl (Cymbalta) 30 mg PO DAILY [facility] Last Admin: 03/09/19 08:45 Dose: 30 mg Hydromorphone HCl (Dilaudid) 1 mg IVPUSH Q2H PRN PRN Reason: Pain (severe 7-10) Last Admin: 03/09/19 07:37 Dose: 1 mg Hydromorphone HCl (Dilaudid) 2 mg PO Q3H PRN PRN Reason: Pain (moderate 4-6) Last Admin: 03/09/19 00:59 Dose: 2 mg Ibuprofen (Motrin) 600 mg PO Q6H PRN PRN Reason: Pain/Fever Last Admin: 03/09/19 09:33 Dose: 600 mg Lorazepam (Ativan) 0.5 mg IVPUSH Q4H PRN PRN Reason: Nausea/Vomiting Lorazepam (Ativan) 0.5 mg PO Q4H PRN PRN Reason: Muscle Spasm Magnesium Hydroxide (Milk Of Magnesia) 30 ml PO Q12H PRN PRN Reason: Constipation Montelukast Sodium (Singulair) 10 mg PO DAILY [facility] Last Admin: 03/09/19 08:46 Dose: 10 mg Norgestimate-Ethinyl Estradiol (Ortho Tri-Cyclen) Ptom 1 tab PO DAILY [facility] Last Admin: 03/09/19 10:39 Dose: Not Given Ondansetron HCl (Zofran Odt) 4 mg PO Q6H PRN PRN Reason: Nausea able to take PO Ondansetron HCl (Zofran) 4 mg IV Q6H PRN PRN Reason: Nausea/Vomiting Last Admin: 03/09/19 07:40 Dose: 4 mg Senna/Docusate Sodium (Senna Plus) 1 tab PO BID PRN PRN Reason: Constipation Sodium Chloride (Saline Flush) 10 ml FLUSH ONETIME PRN PRN Reason: PER RADIOLOGY PROTOCOL Last Admin: 03/08/19 11:00 Dose: 10 ml Tizanidine HCl (Zanaflex) 4 mg PO Q6H PRN PRN Reason: Muscle Spasm Last Admin: 03/09/19 08:44 Dose: 4 mg Topiramate (Topamax) 300 mg PO BEDTIME [facility] Last Admin: 03/08/19 20:37 Dose: 300 mg Discontinued Medications Sodium Chloride (Normal Saline) 1,000 mls @ 999 mls/hr IV .BOLUS STA Stop: 03/08/19 10:58 Last Admin: 03/08/19 10:08 Dose: 999 mls/hr Sodium Chloride (Normal Saline) 70 mls @ 3 mls/sec IV ONETIME ONE Stop: 03/08/19 10:29 Last Admin: 03/08/19 11:00 Dose: 3 mls/sec Sodium Chloride (Normal Saline) 1,000 mls @ 100 mls/hr IV ASDIRECTED [facility] Last Admin: 03/08/19 23:31 Dose: 100 mls/hr Iopamidol (Isovue-300 (61%)) 63 ml IV . DIRECTED PRN PRN Reason: RADIOLOGY EXAM Last Admin: 03/08/19 11:00 Dose: 63 ml Morphine Sulfate (Morphine) 4 mg IVPUSH ONETIME ONE Stop: 03/08/19 10:00 Last Admin: 03/08/19 10:09 Dose: 4 mg Morphine Sulfate (Morphine) 4 mg IVPUSH ONETIME ONE Stop: 03/08/19 12:42 Last Admin: 03/08/19 12:46 Dose: 4 mg Ondansetron HCl (Zofran) 4 mg IVPUSH ONETIME ONE Stop: 03/08/19 09:59 Last Admin: 03/08/19 10:13 Dose: 4 mg Ondansetron HCl (Zofran) 4 mg IVPUSH ONETIME ONE Stop: 03/08/19 12:42 Last Admin: 03/08/19 12:50 Dose: 4 mg Tizanidine HCl (Zanaflex) 4 mg PO ONETIME ONE Stop: 03/08/19 14:01 Last Admin: 03/08/19 14:14 Dose: 4 mg - Exam Quality Assessment: No: Supplemental Oxygen General: Alert, Oriented, Cooperative, No Acute Distress Lungs: Normal Respiratory Effort GI/Abdominal Exam: Soft, No Distention Back Exam: Decreased Range of Motion, Muscle Spasm (bilateral paraspinal from lower cervical spine to lower lumbar ), Paraspinal Tenderness (lumbar > thoracic ) Extremities: No Pedal Edema. No: Increased Warmth Psy/Mental Status: Alert, Normal Affect Sepsis Event Note - Evaluation Sepsis Screening Result: No Definite Risk - Focused Exam Vital Signs: Vital Signs Temp Pulse Resp BP Pulse Ox 03/09/19 07:58 36.9 C 73 16 102/66 100 03/09/19 02:20 36.4 C 73 16 91/61 99 Date Exam was Performed: 03/09/19 Time Exam was Performed: 15:01 - Problem List & Annotations (1) Acute thoracic back pain SNOMED Code(s): 553620955 Code(s): M54.6 - PAIN IN THORACIC SPINE Status: Acute Current Visit: Yes Qualifiers: Back pain laterality: midline Qualified Code(s): M54.6 - Pain in thoracic spine - Problem List Review Problem List Initiated/Reviewed/Updated: Yes - My Orders Last 24 Hours: My Active Orders 03/08/19 13:55 Resuscitation Status Routine 03/08/19 14:36 Patient Status [ADT] Routine Antiembolic Devices [RC] .Routine Intake and Output [RC] QSHIFT Notify Provider Vital Signs [RC] ASDIRECTED Oxygen Therapy [RC] PRN Up ad Margarita [RC] ASDIRECTED VTE/DVT Education [RC] Per Unit Routine Vital Signs [RC] Q4H Acetaminophen [Tylenol] 650 mg PO Q4H PRN Cetirizine [ZyrTEC] 10 mg PO DAILY PRN Docusate Sodium/Sennosides [Senna Plus] 1 tab PO BID PRN HYDROmorphone [Dilaudid] 1 mg IVPUSH Q2H PRN HYDROmorphone [Dilaudid] 2 mg PO Q3H PRN Ibuprofen [Motrin] 600 mg PO Q6H PRN LORazepam [Ativan] 0.5 mg IVPUSH Q4H PRN LORazepam [Ativan] 0.5 mg PO Q4H PRN Magnesium Hydroxide [Milk of Magnesia] 30 ml PO Q12H PRN Ondansetron [Zofran ODT] 4 mg PO Q6H PRN Ondansetron [Zofran] 4 mg IV Q6H PRN tiZANidine [Zanaflex] 4 mg PO Q6H PRN Sequential Compression Device [OM.PC] Routine 03/08/19 15:27 Cooling Warming Measures [RC] ASDIRECTED Heat Therapy [OM.PC] Routine 03/08/19 21:00 Topiramate [Topamax] 300 mg PO BEDTIME 03/08/19 Dinner Full Liquid Diet [DIET] 03/09/19 09:00 DULoxetine [Cymbalta] 30 mg PO DAILY Montelukast [Singulair] 10 mg PO DAILY Norgestimate-Ethinyl Estradiol [Ortho Tri-Cyclen 28 Tablet] 1 tab PO DAILY buPROPion [Wellbutrin XL] 300 mg PO DAILY 03/09/19 10:59 Convert IV to Saline Lock [OM.PC] Routine - Plan Plan:: ASSESSMENT AND PLAN - Acute thoracic back pain-imaging negative and C-reactive protein undetectable. Musculoskeletal abnormality most likely. Still having moderate pain but somewhat better today. -Continue muscle relaxer -Pain control with hydromorphone -Heating pad -Increase activity as tolerated Maintenance issues - - DVT prophylaxis -mechanical - GI prophylaxis -not indicated - Nutrition -full liquids, advance when nausea and vomiting resolve - Mercer catheter -not indicated Disposition -I would anticipate discharge home after the hospital stay Primary care physician - Dr. Kasie Lemus M.D.
[2019-03-09] MEDS: Acetaminophen 325 MG Tab PO PRN (12:35)
[2019-03-09] MEDS: LORazepam 0.5 MG Tab PO PRN (18:31)
[2019-03-09] MEDS: Topiramate 100 MG Tab PO SCH (21:40)
[2019-03-10] MEDS: HYDROmorphone 2 MG Tab PO PRN ×3 (03:13→11:03)
[2019-03-10] MEDS: Ondansetron 4 MG/2 ML SDV IV PRN (03:22)
[2019-03-10] MEDS: HYDROmorphone 1 MG/ML Syringe IVPUSH PRN ×5 (05:35→22:32)
[2019-03-10] MEDS: tiZANidine 4 MG Tab PO PRN ×3 (05:43→19:13)
[2019-03-10] MEDS: Ibuprofen 600 MG Tab PO PRN ×3 (08:16→22:35)
[2019-03-10] MEDS: NORGESTIMATE ETHINYL ESTRADIOL PO SCH (08:16)
[2019-03-10] MEDS: buPROPion 150 MG Tab.ER PO SCH (08:18)
[2019-03-10] MEDS: DULoxetine 30 MG Cap PO SCH (08:19)
[2019-03-10] MEDS: Montelukast 10 MG Tab PO SCH (08:19)
--- NOTE | 2019-03-10 10:12 | PCM.PN ---
- General Info Date of Service: 03/10/19 Subjective Update: There were no acute events overnight. Back pain is slightly better today but persists. She had some difficulty with nausea overnight and intake has been suboptimal. She thought she had some hematuria this morning and urinalysis did show some blood. Also moderate bacteria and slightly more criteria to suggest urinary tract infection then at the time of presentation. Mild urgency but no impressive urinary symptoms at this time. No fevers overnight. Functional Status: Reports: Pain Controlled - Review of Systems General: Denies: Fever Gastrointestinal: Reports: Nausea Genitourinary: Reports: Urgency - Patient Data Vitals - Most Recent: Last Vital Signs Temp 36.8 C 03/10/19 08:10 Pulse 82 03/10/19 08:10 Resp 16 03/10/19 08:10 BP 92/71 03/10/19 08:10 Pulse Ox 99 03/10/19 08:10 Weight - Most Recent: 42 kg I&O - Last 24 Hours: Intake & Output 03/09/19 03/10/19 03/10/19 22:59 06:59 14:59 Intake Total 480 600 240 Output Total 700 1000 Balance 480 -100 -760 Jeff Results Last 24 Hours: Microbiology 03/08/19 10:05 Aerobic Blood Culture - Preliminary Blood - Venous - Iv Start NO GROWTH AFTER 1 DAY Anaerobic Blood Culture - Preliminary NO GROWTH AFTER 1 DAY 03/08/19 10:00 Aerobic Blood Culture - Preliminary Blood - Arm, Left NO GROWTH AFTER 1 DAY Anaerobic Blood Culture - Preliminary NO GROWTH AFTER 1 DAY Med Orders - Current: Current Medications Acetaminophen (Tylenol) 650 mg PO Q4H PRN PRN Reason: Pain (Mild 1-3)/fever Last Admin: 03/09/19 12:35 Dose: 650 mg Bupropion HCl (Wellbutrin Xl) 300 mg PO DAILY [facility] Last Admin: 03/10/19 08:18 Dose: 300 mg Cetirizine HCl (Zyrtec) 10 mg PO DAILY PRN PRN Reason: Allergies Duloxetine HCl (Cymbalta) 30 mg PO DAILY [facility] Last Admin: 03/10/19 08:19 Dose: 30 mg Hydromorphone HCl (Dilaudid) 1 mg IVPUSH Q2H PRN PRN Reason: Pain (severe 7-10) Last Admin: 03/10/19 05:35 Dose: 1 mg Hydromorphone HCl (Dilaudid) 2 mg PO Q3H PRN PRN Reason: Pain (moderate 4-6) Last Admin: 03/10/19 08:18 Dose: 2 mg Ibuprofen (Motrin) 600 mg PO Q6H PRN PRN Reason: Pain/Fever Last Admin: 03/10/19 08:16 Dose: 600 mg Lorazepam (Ativan) 0.5 mg IVPUSH Q4H PRN PRN Reason: Nausea/Vomiting Lorazepam (Ativan) 0.5 mg PO Q4H PRN PRN Reason: Muscle Spasm Last Admin: 03/09/19 18:31 Dose: 0.5 mg Magnesium Hydroxide (Milk Of Magnesia) 30 ml PO Q12H PRN PRN Reason: Constipation Montelukast Sodium (Singulair) 10 mg PO DAILY [facility] Last Admin: 03/10/19 08:19 Dose: 10 mg Norgestimate-Ethinyl Estradiol (Ortho Tri-Cyclen) Ptom 1 tab PO DAILY [facility] Last Admin: 03/10/19 08:16 Dose: Not Given Ondansetron HCl (Zofran Odt) 4 mg PO Q6H PRN PRN Reason: Nausea able to take PO Ondansetron HCl (Zofran) 4 mg IV Q6H PRN PRN Reason: Nausea/Vomiting Last Admin: 03/10/19 03:22 Dose: 4 mg Pantoprazole Sodium (Protonix) 40 mg PO BIDAC [facility] Senna/Docusate Sodium (Senna Plus) 1 tab PO BID PRN PRN Reason: Constipation Last Admin: 03/09/19 21:44 Dose: 1 tab Sodium Chloride (Saline Flush) 10 ml FLUSH ONETIME PRN PRN Reason: PER RADIOLOGY PROTOCOL Last Admin: 03/08/19 11:00 Dose: 10 ml Sucralfate (Carafate) 1 gm PO QIDACANDBED [facility] Tizanidine HCl (Zanaflex) 4 mg PO Q6H PRN PRN Reason: Muscle Spasm Last Admin: 03/10/19 05:43 Dose: 4 mg Topiramate (Topamax) 300 mg PO BEDTIME [facility] Last Admin: 03/09/19 21:40 Dose: 300 mg Discontinued Medications Sodium Chloride (Normal Saline) 1,000 mls @ 999 mls/hr IV .BOLUS STA Stop: 12/21/19 10:58 Last Admin: 03/08/19 10:08 Dose: 999 mls/hr Sodium Chloride (Normal Saline) 70 mls @ 3 mls/sec IV ONETIME ONE Stop: 03/08/19 10:29 Last Admin: 03/08/19 11:00 Dose: 3 mls/sec Sodium Chloride (Normal Saline) 1,000 mls @ 100 mls/hr IV ASDIRECTED [facility] Last Admin: 03/08/19 23:31 Dose: 100 mls/hr Iopamidol (Isovue-300 (61%)) 63 ml IV . DIRECTED PRN PRN Reason: RADIOLOGY EXAM Last Admin: 03/08/19 11:00 Dose: 63 ml Morphine Sulfate (Morphine) 4 mg IVPUSH ONETIME ONE Stop: 03/08/19 10:00 Last Admin: 03/08/19 10:09 Dose: 4 mg Morphine Sulfate (Morphine) 4 mg IVPUSH ONETIME ONE Stop: 03/08/19 12:42 Last Admin: 03/08/19 12:46 Dose: 4 mg Ondansetron HCl (Zofran) 4 mg IVPUSH ONETIME ONE Stop: 03/08/19 09:59 Last Admin: 03/08/19 10:13 Dose: 4 mg Ondansetron HCl (Zofran) 4 mg IVPUSH ONETIME ONE Stop: 03/08/19 12:42 Last Admin: 03/08/19 12:50 Dose: 4 mg Tizanidine HCl (Zanaflex) 4 mg PO ONETIME ONE Stop: 03/08/19 14:01 Last Admin: 03/08/19 14:14 Dose: 4 mg - Exam Quality Assessment: No: Supplemental Oxygen General: Alert, Oriented, Cooperative, No Acute Distress Lungs: Normal Respiratory Effort GI/Abdominal Exam: Soft, No Distention Extremities: No Pedal Edema Psy/Mental Status: Alert, Normal Affect Sepsis Event Note - Evaluation Sepsis Screening Result: No Definite Risk - Focused Exam Vital Signs: Vital Signs Temp Pulse Resp BP BP Pulse Ox 03/10/19 08:10 36.8 C 82 16 92/71 99 03/10/19 03:00 37.4 C 87 18 101/69 98 Date Exam was Performed: 03/10/19 Time Exam was Performed: 14:13 - Problem List & Annotations (1) Acute thoracic back pain SNOMED Code(s): 872253462 Code(s): M54.6 - PAIN IN THORACIC SPINE Status: Acute Current Visit: Yes Qualifiers: Back pain laterality: midline Qualified Code(s): M54.6 - Pain in thoracic spine - Problem List Review Problem List Initiated/Reviewed/Updated: Yes - My Orders Last 24 Hours: My Active Orders 03/09/19 10:59 Convert IV to Saline Lock [OM.PC] Routine 03/10/19 09:45 UA W/MICROSCOPIC [URIN] Routine 03/10/19 10:30 Pantoprazole [ProTONIX] 40 mg PO BIDAC 03/10/19 11:00 Sucralfate [Carafate] 1 gm PO QIDACANDBED - Plan Plan:: ASSESSMENT AND PLAN - Acute thoracic back pain-imaging negative and C-reactive protein undetectable. Musculoskeletal abnormality most likely. Still having moderate pain but slowly getting better. -Continue muscle relaxer -Pain control with hydromorphone -Heating pad -Increase activity as tolerated Acute cystitis with hematuria-mild symptoms present at the time of admission and they seem to have slowly progressed. Urine sample more suggestive of infection today and hematuria is a little worse. I suspect this infection was present on admission but has progressed since admission. -Empiric ceftriaxone -Urine culture Maintenance issues - - DVT prophylaxis -mechanical - GI prophylaxis -not indicated - Nutrition -full liquids, advance when nausea and vomiting resolve - Mercer catheter -not indicated Admission justification-patient will be transition to inpatient status with persistent pain difficulties, persistent nausea hampering her ability to take in fluids as well as worsening of an infection that was present but has progressed. Disposition -I would anticipate discharge home after the hospital stay Primary care physician - Dr. Kasie Lemus M.D.
[2019-03-10] MEDS: Pantoprazole 40 MG Tab.CR PO SCH ×2 (10:57→16:21)
[2019-03-10] MEDS: Ondansetron 4 MG Tab.DIS PO PRN (11:02)
[2019-03-10] MEDS: Sucralfate Suspension 1 GM/10 ML Cup PO SCH ×3 (11:44→19:15)
[2019-03-10] MEDS: cefTRIAXone 1 GM in Sodium Chloride 0.9% 50 ML IV SCH (11:45)
[2019-03-10] MEDS: LORazepam 0.5 MG Tab PO PRN (16:11)
[2019-03-10] MEDS: Topiramate 100 MG Tab PO SCH (20:54)
[2019-03-11] MEDS: tiZANidine 4 MG Tab PO PRN ×3 (02:36→16:47)
[2019-03-11] MEDS: HYDROmorphone 1 MG/ML Syringe IVPUSH PRN ×7 (02:36→22:46)
[2019-03-11] MEDS: Ibuprofen 600 MG Tab PO PRN ×2 (06:03→16:48)
[2019-03-11] MEDS: HYDROmorphone 2 MG Tab PO PRN (06:03)
[2019-03-11] MEDS: Ondansetron 4 MG/2 ML SDV IV PRN (06:06)
[2019-03-11] MEDS: Sucralfate Suspension 1 GM/10 ML Cup PO SCH ×4 (07:17→19:42)
[2019-03-11] MEDS: Pantoprazole 40 MG Tab.CR PO SCH ×2 (07:21→16:59)
[2019-03-11] MEDS: Montelukast 10 MG Tab PO SCH (09:25)
[2019-03-11] MEDS: buPROPion 150 MG Tab.ER PO SCH (09:25)
[2019-03-11] MEDS: NORGESTIMATE ETHINYL ESTRADIOL PO SCH (09:25)
[2019-03-11] MEDS: DULoxetine 30 MG Cap PO SCH (09:25)
--- NOTE | 2019-03-11 10:56 | PCM.PN ---
- General Info Date of Service: 03/11/19 Subjective Update: There were no acute events overnight though the patient did have some difficulty with nausea and vomiting. Still having a fair amount of pain though it is a little better again today. Not tolerating her diet very well. Does not feel much better with the use of PPI and sucralfate which were started yesterday. She has been up and walking around some which is an improvement. No fevers overnight. Urine culture is growing mixed brandon. Still having some hematuria. Functional Status: Reports: Pain Controlled, Tolerating Diet - Review of Systems Gastrointestinal: Reports: Nausea, Vomiting - Patient Data Vitals - Most Recent: Last Vital Signs Temp 37.0 C 03/11/19 07:00 Pulse 81 03/11/19 07:00 Resp 20 03/11/19 07:00 BP 90/59 L 03/11/19 07:00 Pulse Ox 99 03/11/19 07:00 Weight - Most Recent: 42 kg I&O - Last 24 Hours: Intake & Output 03/10/19 03/11/19 03/11/19 22:59 06:59 14:59 Intake Total 920 120 Output Total 340 275 250 Balance 580 -275 -130 Jeff Results Last 24 Hours: Microbiology 03/08/19 10:00 Aerobic Blood Culture - Preliminary Blood - Arm, Left NO GROWTH AFTER 3 DAYS Anaerobic Blood Culture - Preliminary NO GROWTH AFTER 3 DAYS 03/08/19 10:05 Aerobic Blood Culture - Preliminary Blood - Venous - Iv Start NO GROWTH AFTER 3 DAYS Anaerobic Blood Culture - Preliminary NO GROWTH AFTER 3 DAYS 03/10/19 11:01 Urine Culture - Preliminary Urine, Clean Catch MIXED POSITIVE BRANDON DAY 1 Med Orders - Current: Current Medications Acetaminophen (Tylenol) 650 mg PO Q4H PRN PRN Reason: Pain (Mild 1-3)/fever Last Admin: 03/09/19 12:35 Dose: 650 mg Bupropion HCl (Wellbutrin Xl) 300 mg PO DAILY [facility] Last Admin: 03/11/19 09:25 Dose: 300 mg Cetirizine HCl (Zyrtec) 10 mg PO DAILY PRN PRN Reason: Allergies Duloxetine HCl (Cymbalta) 30 mg PO DAILY [facility] Last Admin: 03/11/19 09:25 Dose: 30 mg Hydromorphone HCl (Dilaudid) 1 mg IVPUSH Q2H PRN PRN Reason: Pain (severe 7-10) Last Admin: 03/11/19 07:20 Dose: 1 mg Hydromorphone HCl (Dilaudid) 2 mg PO Q3H PRN PRN Reason: Pain (moderate 4-6) Last Admin: 03/11/19 06:03 Dose: 2 mg Ceftriaxone Sodium 1 gm/ (Sodium Chloride) 50 mls @ 100 mls/hr IV Q24H [facility] Last Admin: 03/10/19 11:45 Dose: 100 mls/hr Ibuprofen (Motrin) 600 mg PO Q6H PRN PRN Reason: Pain/Fever Last Admin: 03/11/19 06:03 Dose: 600 mg Lorazepam (Ativan) 0.5 mg IVPUSH Q4H PRN PRN Reason: Nausea/Vomiting Lorazepam (Ativan) 0.5 mg PO Q4H PRN PRN Reason: Muscle Spasm Last Admin: 03/10/19 16:11 Dose: 0.5 mg Magnesium Hydroxide (Milk Of Magnesia) 30 ml PO Q12H PRN PRN Reason: Constipation Montelukast Sodium (Singulair) 10 mg PO DAILY [facility] Last Admin: 03/11/19 09:25 Dose: 10 mg Norgestimate-Ethinyl Estradiol (Ortho Tri-Cyclen) Ptom 1 tab PO DAILY [facility] Last Admin: 03/11/19 09:25 Dose: Not Given Ondansetron HCl (Zofran Odt) 4 mg PO Q6H PRN PRN Reason: Nausea able to take PO Last Admin: 03/10/19 11:02 Dose: 4 mg Ondansetron HCl (Zofran) 4 mg IV Q6H PRN PRN Reason: Nausea/Vomiting Last Admin: 03/11/19 06:06 Dose: 4 mg Pantoprazole Sodium (Protonix) 40 mg PO BIDAC [facility] Last Admin: 03/11/19 07:21 Dose: 40 mg Senna/Docusate Sodium (Senna Plus) 1 tab PO BID PRN PRN Reason: Constipation Last Admin: 03/09/19 21:44 Dose: 1 tab Sodium Chloride (Saline Flush) 10 ml FLUSH ONETIME PRN PRN Reason: PER RADIOLOGY PROTOCOL Last Admin: 03/08/19 11:00 Dose: 10 ml Sucralfate (Carafate) 1 gm PO QIDACANDBED [facility] Last Admin: 03/11/19 07:17 Dose: 1 gm Tizanidine HCl (Zanaflex) 4 mg PO Q6H PRN PRN Reason: Muscle Spasm Last Admin: 03/11/19 09:25 Dose: 4 mg Topiramate (Topamax) 300 mg PO BEDTIME [facility] Last Admin: 03/10/19 20:54 Dose: 300 mg Discontinued Medications Sodium Chloride (Normal Saline) 1,000 mls @ 999 mls/hr IV .BOLUS STA Stop: 03/08/19 10:58 Last Admin: 03/08/19 10:08 Dose: 999 mls/hr Sodium Chloride (Normal Saline) 70 mls @ 3 mls/sec IV ONETIME ONE Stop: 03/08/19 10:29 Last Admin: 03/08/19 11:00 Dose: 3 mls/sec Sodium Chloride (Normal Saline) 1,000 mls @ 100 mls/hr IV ASDIRECTED [facility] Last Admin: 03/08/19 23:31 Dose: 100 mls/hr Iopamidol (Isovue-300 (61%)) 63 ml IV . DIRECTED PRN PRN Reason: RADIOLOGY EXAM Last Admin: 03/08/19 11:00 Dose: 63 ml Morphine Sulfate (Morphine) 4 mg IVPUSH ONETIME ONE Stop: 03/08/19 10:00 Last Admin: 03/08/19 10:09 Dose: 4 mg Morphine Sulfate (Morphine) 4 mg IVPUSH ONETIME ONE Stop: 03/08/19 12:42 Last Admin: 03/08/19 12:46 Dose: 4 mg Ondansetron HCl (Zofran) 4 mg IVPUSH ONETIME ONE Stop: 03/08/19 09:59 Last Admin: 03/08/19 10:13 Dose: 4 mg Ondansetron HCl (Zofran) 4 mg IVPUSH ONETIME ONE Stop: 03/08/19 12:42 Last Admin: 03/08/19 12:50 Dose: 4 mg Tizanidine HCl (Zanaflex) 4 mg PO ONETIME ONE Stop: 03/08/19 14:01 Last Admin: 03/08/19 14:14 Dose: 4 mg - Exam Quality Assessment: No: Supplemental Oxygen General: Alert, Oriented, Cooperative, No Acute Distress Lungs: Normal Respiratory Effort GI/Abdominal Exam: Soft, No Distention Extremities: No Pedal Edema Psy/Mental Status: Alert, Normal Affect Sepsis Event Note - Evaluation Sepsis Screening Result: No Definite Risk - Focused Exam Vital Signs: Vital Signs Temp Pulse Resp BP Pulse Ox 03/11/19 07:00 37.0 C 81 20 90/59 L 99 03/11/19 02:31 36.3 C 95 18 90/57 L 100 03/10/19 23:00 36.3 C 84 16 88/57 L 96 Date Exam was Performed: 03/11/19 Time Exam was Performed: 14:29 - Problem List & Annotations (1) Acute thoracic back pain SNOMED Code(s): 127897743 Code(s): M54.6 - PAIN IN THORACIC SPINE Status: Acute Current Visit: Yes Qualifiers: Back pain laterality: midline Qualified Code(s): M54.6 - Pain in thoracic spine - Problem List Review Problem List Initiated/Reviewed/Updated: Yes - My Orders Last 24 Hours: My Active Orders 03/10/19 10:30 Pantoprazole [ProTONIX] 40 mg PO BIDAC 03/10/19 11:00 Sucralfate [Carafate] 1 gm PO QIDACANDBED 03/10/19 11:01 CULTURE URINE [RM] Routine 03/10/19 11:30 cefTRIAXone [Rocephin] 1 gm Sodium Chloride 0.9% [Normal Saline] 50 ml IV Q24H 03/10/19 11:52 Admission Status [Patient Status] [ADT] Routine 03/11/19 10:55 Notify Provider Consults [RC] ASDIRECTED Consult to Physician [CONS] Routine 03/11/19 Dinner NPO After Midnight [Nothing per Oral After Midnight Diet] [DIET] 03/12/19 05:00 CBC W/O DIFF,HEMOGRAM [HEME] Timed (1) COMPREHENSIVE METABOLIC PN,CMP [CHEM] Timed - Plan Plan:: ASSESSMENT AND PLAN - Persistent nausea with intermittent vomiting -initially thought to be related to her pain plus or minus contribution from infection. Symptoms have persisted despite improvements in pain and no strong evidence to support a significant infection. Not much better with use of a proton pump inhibitor and sucralfate. -EGD in the morning with Dr. Amilcar Castellano (8am) -Continue PPI and sucralfate Acute thoracic back pain-imaging negative and C-reactive protein undetectable. Musculoskeletal abnormality most likely. Still having moderate pain but slowly getting better. -Continue muscle relaxer -Pain control with hydromorphone -Heating pad -Increase activity as tolerated Acute cystitis with hematuria-mild symptoms present at the time of admission and they seem to have slowly progressed. Urine sample more suggestive of infection today and hematuria is a little worse. I suspect this infection was present on admission but has progressed since admission. Urine culture with mixed brandon so far but I plan to continue antibiotics for at least 1 more day. -Empiric ceftriaxone -Follow-up urine culture Maintenance issues - - DVT prophylaxis -mechanical - GI prophylaxis -not indicated - Nutrition -full liquids, advance when nausea and vomiting resolve. Nothing by mouth after midnight - Mercer catheter -not indicated Admission justification-patient will be transition to inpatient status with persistent pain difficulties, persistent nausea hampering her ability to take in fluids as well as worsening of an infection that was present but has progressed. Disposition -I would anticipate discharge home after the hospital stay Primary care physician - Dr. Arina Lemus M.D.
[2019-03-11] MEDS: cefTRIAXone 1 GM in Sodium Chloride 0.9% 50 ML IV SCH (12:09)
[2019-03-11] MEDS: Ondansetron 4 MG Tab.DIS PO PRN (12:22)
[2019-03-11] MEDS: LORazepam 0.5 MG Tab PO PRN ×2 (15:06→18:58)
[2019-03-11] MEDS: Topiramate 100 MG Tab PO SCH (22:10)
[2019-03-12] MEDS ORDERED: HYDROmorphone 2 MG Tab PO SCH
[2019-03-12] MEDS ORDERED: LORazepam 0.5 MG Tab PO SCH
[2019-03-12] MEDS: HYDROmorphone 1 MG/ML Syringe IVPUSH PRN ×3 (01:46→08:49)
[2019-03-12] MEDS: Ondansetron 4 MG Tab.DIS PO PRN (01:46)
[2019-03-12] MEDS: LORazepam 0.5 MG Tab PO PRN ×2 (04:32→12:48)
[2019-03-12] MEDS: Sucralfate Suspension 1 GM/10 ML Cup PO SCH ×2 (06:20→11:31)
[2019-03-12] MEDS ORDERED: Midazolam 1 MG/ML 2 ML SDV ONE (07:15)
[2019-03-12] MEDS ORDERED: fentaNYL 100 MCG/2 ML SDV ONE (07:15)
[2019-03-12] MEDS ORDERED: Propofol 200 MG/20 ML SDV ONE (07:15)
[2019-03-12] MEDS: buPROPion 150 MG Tab.ER PO SCH (08:53)
[2019-03-12] MEDS: DULoxetine 30 MG Cap PO SCH (08:53)
[2019-03-12] MEDS: Pantoprazole 40 MG Tab.CR PO SCH (08:54)
[2019-03-12] MEDS: NORGESTIMATE ETHINYL ESTRADIOL PO SCH (08:55)
[2019-03-12] MEDS: Montelukast 10 MG Tab PO SCH (08:58)
[2019-03-12] MEDS ORDERED: Potassium Chloride 20 MEQ Tab.ER PO ONE (10:00)
[2019-03-12 10:14] VITALS: BP 105/74; PULSE 98
[2019-03-12] MEDS: tiZANidine 4 MG Tab PO PRN (11:29)
[2019-03-12] MEDS: cefTRIAXone 1 GM in Sodium Chloride 0.9% 50 ML IV SCH (11:30)
[2019-03-12] MEDS: HYDROmorphone 2 MG Tab PO PRN (11:30)
--- NOTE | 2019-03-12 12:32 | PCM.DCSUM1 ---
Discharge Summary - Hospital Course Brief History: Ms. Quinones is a 43-year-old woman who was admitted through the emergency department with thoracic back and flank pain for further evaluation and management. - Discharge Data Discharge Date: 03/12/19 Discharge Disposition: Home, Self-Care 01 Condition: Fair - Referral to Home Health Primary Care Physician: PCP None - Discharge Diagnosis/Problem(s) (1) UTI (urinary tract infection) SNOMED Code(s): 50576942 ICD Code: N39.0 - URINARY TRACT INFECTION, SITE NOT SPECIFIED Status: Acute Current Visit: Yes (2) Gastritis SNOMED Code(s): 8298846 ICD Code: K29.70 - GASTRITIS, UNSPECIFIED, WITHOUT BLEEDING Status: Acute Current Visit: Yes (3) Acute thoracic back pain SNOMED Code(s): 609387376 ICD Code: M54.6 - PAIN IN THORACIC SPINE Status: Acute Current Visit: Yes Qualifiers: Back pain laterality: midline Qualified Code(s): M54.6 - Pain in thoracic spine (4) Hypokalemia SNOMED Code(s): 60763635 ICD Code: E87.6 - HYPOKALEMIA Status: Acute Current Visit: No - Patient Summary/Data Consults: Consultations 03/11/19 10:55 Consult to Physician [CONS] Routine Consulting Provider: Amilcar Castellano Call Completed to Consulting Physician: Yes Reason for Consult: nausea with vomiting, consider EGD to r/o ulcer Person Notified: BDB Date Notified: 03/11/19 Special Instructions: EGD in am Hospital Course: Ms. Quinones presented to the emergency room with persistent mid back and bilateral flank pain. She has had pain off and on for the past several weeks with ups and downs. She describes sharp pain in the middle of her back that radiates to the flank area. She has had some good days but more bad days. Pain is worse after prolonged activity. She has had some relief with pain medications and lorazepam but no relief from nonsteroidal anti-inflammatories or cyclobenzaprine. Pain seems to be worse when she is laying down. No complaints of neck pain. She does endorse significant muscle spasms as well. She does not think she has had any fevers but has had some chills. No complaints of dysuria or increased urinary frequency at this time. Pain was severe on the day prior to admission and she has had multiple episodes of nausea and vomiting. No diarrhea. No sick contacts. No numbness or tingling down arms or legs. Sometimes the pain does radiate from the right flank down into the right leg. Work-up in the emergency room was fairly reassuring. Laboratory studies normal. She did have moderate bacteria on the urinalysis but no significant pyuria or hematuria. CT scan of the abdomen and pelvis was unremarkable. She was admitted for pain control and further work-up. Admission she was given IV fluids for hydration as well as pain medication as needed. She continued to experience thoracic back pain throughout her hospital stay, CT scan of the thoracic spine showed no acute abnormalities. On admission she was felt not to have significant urinary tract infection, follow- up urinalysis showed evidence of more infection so she was started on IV antibiotic therapy with ceftriaxone. Cultures remain negative throughout her hospital stay. She did develop more significant nausea vomiting, EGD was performed on the morning of discharge and showed only mild gastritis. She will be discharged home with oral Protonix and Carafate. She will be transitioned to oral antibiotic therapy and complete 2 more days of antibiotics after discharge. She is instructed to take probiotic therapy twice daily. Activity will be as tolerated and she will be on a soft low residue diet. Follow-up appointment will be scheduled with primary care provider within 1 week, urinalysis should be obtained at the time of follow-up appointment. If she has ongoing hematuria consider urology consult. - Patient Instructions Diet: GI Soft/Low Residue/Low Fiber Activity: As Tolerated Other/Special Instructions: Schedule follow-up appointment with primary care provider within 1 week. Urinalysis should be obtained at the time of follow-up appointment. - Discharge Plan *PRESCRIPTION DRUG MONITORING PROGRAM REVIEWED*: Not Applicable *COPY OF PRESCRIPTION DRUG MONITORING REPORT IN PATIENT WHIT: Not Applicable Prescriptions/Med Rec: Cephalexin [Keflex] 250 mg PO Q8H #6 capsule HYDROmorphone [Dilaudid] 2 mg PO Q4H PRN #16 tablet PRN Reason: Pain (Moderate 4-6) LORazepam 0.5 mg PO Q4H PRN #16 tab PRN Reason: Muscle Spasm Pantoprazole [ProTONIX] 40 mg PO DAILY #30 tab.cr Sucralfate [Carafate] 1 gm PO QID #120 tablet Home Medications: Home Meds Cetirizine [ZyrTEC] 10 mg PO DAILY PRN 11/27/15 [History] Norgestimate-Ethinyl Estradiol [Ortho Tri-Cyclen 28 Tablet] 1 tab PO DAILY 11/26 [History] SUMAtriptan [Imitrex] 100 mg PO DAILY PRN 11/27/15 [History] Topiramate [Topamax] 300 mg PO BEDTIME 11/27/15 [History] buPROPion [Wellbutrin XL] 300 mg PO DAILY 11/27/15 [History] Ondansetron [Zofran ODT] 4 mg PO Q4H PRN #12 tab.dis 11/28/15 [Rx] DULoxetine [Cymbalta] 30 mg PO DAILY 02/17/19 [History] Montelukast [Singulair] 10 mg PO DAILY 02/17/19 [History] Cephalexin [Keflex] 250 mg PO Q8H #6 capsule 03/12/19 [Rx] HYDROmorphone [Dilaudid] 2 mg PO Q4H PRN #16 tablet 03/12/19 [Rx] LORazepam 0.5 mg PO Q4H PRN #16 tab 03/12/19 [Rx] Pantoprazole [ProTONIX] 40 mg PO DAILY #30 tab.cr 03/12/19 [Rx] Sucralfate [Carafate] 1 gm PO QID #120 tablet 03/12/19 [Rx] Referrals: Arina Gallego MD [Ordering Only Provider] - 03/20/19 1:30 pm (Please arriive 15 minutes early to register for your appointment.) - Discharge Summary/Plan Comment DC Time >30 min.: No - Patient Data Vitals - Most Recent: Last Vital Signs Temp 97.5 F 03/12/19 08:58 Pulse 98 03/12/19 10:00 Resp 16 03/12/19 10:00 BP 105/74 03/12/19 10:00 Pulse Ox 98 03/12/19 10:00 Weight - Most Recent: 92 lb 9.506 oz I&O - Last 24 hours: Intake & Output 03/11/19 03/12/19 03/12/19 22:59 06:59 14:59 Intake Total 200 700 Output Total 1200 Balance -1000 700 Lab Results - Last 24 hrs: Laboratory Results - last 24 hr 03/12/19 03/12/19 Range/Units 04:44 04:44 WBC 3.2 L (4.5-11.0) K/uL RBC 4.51 (3.30-5.50) M/uL Hgb 12.5 (12.0-15.0) g/dL Hct 38.7 (36.0-48.0) % MCV 86 (80-98) fL MCH 28 (27-31) pg MCHC 32 (32-36) % Plt Count 253 (150-400) K/uL Sodium 141 (140-148) mmol/L Potassium 3.4 L (3.6-5.2) mmol/L Chloride 106 (100-108) mmol/L Carbon Dioxide 23 (21-32) mmol/L Anion Gap 15.4 H (5.0-14.0) mmol/L BUN 5 L D (7-18) mg/dL Creatinine 1.1 H (0.6-1.0) mg/dL Est Cr Clr Drug Dosing 44.63 mL/min Estimated GFR (MDRD) 55 L (>60) Glucose 98 (74-106) mg/dL Calcium 8.2 L (8.5-10.1) mg/dL Total Bilirubin 0.2 (0.2-1.0) mg/dL AST 13 L (15-37) U/L ALT 18 (12-78) U/L Alkaline Phosphatase 81 (46-116) U/L Total Protein 6.6 (6.4-8.2) g/dL Albumin 3.3 L (3.4-5.0) g/dL Globulin 3.3 (2.3-3.5) g/dL Albumin/Globulin Ratio 1.0 L (1.2-2.2) ALVAREZ Results - Last 24 hrs: Microbiology 03/08/19 10:00 Aerobic Blood Culture - Preliminary Blood - Arm, Left NO GROWTH AFTER 4 DAYS Anaerobic Blood Culture - Preliminary NO GROWTH AFTER 4 DAYS 03/08/19 10:05 Aerobic Blood Culture - Preliminary Blood - Venous - Iv Start NO GROWTH AFTER 4 DAYS Anaerobic Blood Culture - Preliminary NO GROWTH AFTER 4 DAYS 03/10/19 11:01 Urine Culture - Final Urine, Clean Catch MIXED POSITIVE SUNNY DAY 2 Med Orders - Current: Current Medications Acetaminophen (Tylenol) 650 mg PO Q4H PRN PRN Reason: Pain (Mild 1-3)/fever Last Admin: 03/09/19 12:35 Dose: 650 mg Bupropion HCl (Wellbutrin Xl) 300 mg PO DAILY [facility] Last Admin: 03/12/19 08:53 Dose: 300 mg Cetirizine HCl (Zyrtec) 10 mg PO DAILY PRN PRN Reason: Allergies Duloxetine HCl (Cymbalta) 30 mg PO DAILY [facility] Last Admin: 03/12/19 08:53 Dose: 30 mg Hydromorphone HCl (Dilaudid) 1 mg IVPUSH Q2H PRN PRN Reason: Pain (severe 7-10) Last Admin: 03/12/19 08:49 Dose: 1 mg Hydromorphone HCl (Dilaudid) 2 mg PO Q3H PRN PRN Reason: Pain (moderate 4-6) Last Admin: 03/12/19 11:30 Dose: 2 mg Ceftriaxone Sodium 1 gm/ (Sodium Chloride) 50 mls @ 100 mls/hr IV Q24H [facility] Last Admin: 03/12/19 11:30 Dose: 100 mls/hr Ibuprofen (Motrin) 600 mg PO Q6H PRN PRN Reason: Pain/Fever Last Admin: 03/11/19 16:48 Dose: 600 mg Lorazepam (Ativan) 0.5 mg IVPUSH Q4H PRN PRN Reason: Nausea/Vomiting Lorazepam (Ativan) 0.5 mg PO Q4H PRN PRN Reason: Muscle Spasm Last Admin: 03/12/19 04:32 Dose: 0.5 mg Magnesium Hydroxide (Milk Of Magnesia) 30 ml PO Q12H PRN PRN Reason: Constipation Montelukast Sodium (Singulair) 10 mg PO DAILY [facility] Last Admin: 03/12/19 08:58 Dose: 10 mg Norgestimate-Ethinyl Estradiol (Ortho Tri-Cyclen) Ptom 1 tab PO DAILY [facility] Last Admin: 03/12/19 08:55 Dose: Not Given Ondansetron HCl (Zofran Odt) 4 mg PO Q6H PRN PRN Reason: Nausea able to take PO Last Admin: 03/12/19 01:46 Dose: 4 mg Ondansetron HCl (Zofran) 4 mg IV Q6H PRN PRN Reason: Nausea/Vomiting Last Admin: 03/11/19 06:06 Dose: 4 mg Pantoprazole Sodium (Protonix) 40 mg PO BIDAC [facility] Last Admin: 03/12/19 08:54 Dose: 40 mg Senna/Docusate Sodium (Senna Plus) 1 tab PO BID PRN PRN Reason: Constipation Last Admin: 03/12/19 11:37 Dose: 1 tab Sodium Chloride (Saline Flush) 10 ml FLUSH ONETIME PRN PRN Reason: PER RADIOLOGY PROTOCOL Last Admin: 03/08/19 11:00 Dose: 10 ml Sucralfate (Carafate) 1 gm PO QIDACANDBED [facility] Last Admin: 03/12/19 11:31 Dose: 1 gm Tizanidine HCl (Zanaflex) 4 mg PO Q6H PRN PRN Reason: Muscle Spasm Last Admin: 03/12/19 11:29 Dose: 4 mg Topiramate (Topamax) 300 mg PO BEDTIME [facility] Last Admin: 03/11/19 22:10 Dose: 300 mg Discontinued Medications Fentanyl (Sublimaze) Confirm Administered Dose 100 mcg .ROUTE .STK-MED ONE Stop: 03/12/19 07:16 Sodium Chloride (Normal Saline) 1,000 mls @ 999 mls/hr IV .BOLUS STA Stop: 03/08/19 10:58 Last Admin: 03/08/19 10:08 Dose: 999 mls/hr Sodium Chloride (Normal Saline) 70 mls @ 3 mls/sec IV ONETIME ONE Stop: 03/08/19 10:29 Last Admin: 03/08/19 11:00 Dose: 3 mls/sec Sodium Chloride (Normal Saline) 1,000 mls @ 100 mls/hr IV ASDIRECTED [facility] Last Admin: 03/08/19 23:31 Dose: 100 mls/hr Iopamidol (Isovue-300 (61%)) 63 ml IV . DIRECTED PRN PRN Reason: RADIOLOGY EXAM Last Admin: 03/08/19 11:00 Dose: 63 ml Midazolam HCl (Versed 1 Mg/Ml) Confirm Administered Dose 2 mg .ROUTE .STK-MED ONE Stop: 03/12/19 07:16 Morphine Sulfate (Morphine) 4 mg IVPUSH ONETIME ONE Stop: 03/08/19 10:00 Last Admin: 03/08/19 10:09 Dose: 4 mg Morphine Sulfate (Morphine) 4 mg IVPUSH ONETIME ONE Stop: 03/08/19 12:42 Last Admin: 03/08/19 12:46 Dose: 4 mg Ondansetron HCl (Zofran) 4 mg IVPUSH ONETIME ONE Stop: 03/08/19 09:59 Last Admin: 03/08/19 10:13 Dose: 4 mg Ondansetron HCl (Zofran) 4 mg IVPUSH ONETIME ONE Stop: 03/08/19 12:42 Last Admin: 03/08/19 12:50 Dose: 4 mg Potassium Chloride (Klor-Con M20) 40 meq PO ONETIME ONE Stop: 03/12/19 10:01 Last Admin: 03/12/19 11:31 Dose: 40 meq Propofol (Diprivan 20 Ml) Confirm Administered Dose 200 mg .ROUTE .STK-MED ONE Stop: 03/12/19 07:16 Tizanidine HCl (Zanaflex) 4 mg PO ONETIME ONE Stop: 03/08/19 14:01 Last Admin: 03/08/19 14:14 Dose: 4 mg - Exam General: Reports: Alert, Oriented, Cooperative, Mild Distress Lungs: Reports: Clear to Auscultation, Normal Respiratory Effort Cardiovascular: Reports: Regular Rate, Regular Rhythm, No Murmurs GI/Abdominal Exam: Soft, No Organomegaly, Tender. No: Distended, Guarding, Rigid, Rebound Back Exam: Reports: Vertebral Tenderness
[2019-03-12] MEDS: Ibuprofen 600 MG Tab PO PRN (12:48)
--- NOTE | 2019-03-13 07:32 | OR ---
DATE OF PROCEDURE: 03/12/2019 SURGEON: Amilcar Castellano MD PREOPERATIVE DIAGNOSES: Back and abdominal pain, nausea and vomiting, history of peptic ulcer disease. POSTOPERATIVE DIAGNOSES: Gastritis, back and abdominal pain, nausea and vomiting, and history of peptic ulcer disease. PROCEDURES: Esophagogastroduodenoscopy with antral biopsies for CLOtest and for pathology to look for Helicobacter pylori. ANESTHESIA: IV anesthesia with monitored anesthesia care. INDICATION: This 43-year-old white female is in the hospital. Apparently, she has pyelonephritis. She also has back and abdominal pain, along with nausea and vomiting. She says, in the remote past, she has had an upper endoscopy. This was done in [place], and she says she has a history of ulcers. A request is made for an upper endoscopy. I counseled her for an upper endoscopy with possible biopsy, including risks and alternatives, and she gave her informed consent to proceed. DESCRIPTION OF PROCEDURE: The patient was placed in the left lateral decubitus position. IV anesthesia was administered by the anesthesia service. Time-out was held. The flexible video Olympus upper endoscope was passed through her mouth, down her esophagus, and into her stomach. The scope was easily passed through the pylorus, into the duodenum , reaching its third portion. The scope was then slowly withdrawn, examining the mucosa throughout. The duodenal mucosa appeared unremarkable. The scope was brought back through the pylorus. There was fairly intense erythematous streaking emanating from the pylorus consistent with gastritis. This erythema went well up into the body of the stomach. The scope was retroflexed. The most proximal stomach appeared unremarkable. The scope was straightened. We obtained antral biopsies for CLOtest and for pathology to look for Helicobacter pylori. The scope was then brought up through the GE junction, which was unremarkable and then up through the unremarkable-appearing esophagus and was removed. She tolerated the procedure well. Amilcar Castellano MD /[id number] MTDD
== END 2019-03-12 14:00 | disposition home or self-care (01) ==
LOC: JP.ED 09:06 → JP.MS 13:54
PROVIDERS: ADMIT Internal Medicine; ATTEND Internal Medicine
DX: K29.50 Unspecified chronic gastritis without bleeding (principal); N39.0 Urinary tract infection, site not specified; M54.6 Pain in thoracic spine; E87.6 Hypokalemia; G43.909 Migraine, unspecified, not intractable, without status migrainosus; J45.909 Unspecified asthma, uncomplicated; F32.9 Major depressive disorder, single episode, unspecified; Z87.11 Personal history of peptic ulcer disease; Z79.899 Other long term (current) drug therapy; Z88.2 Allergy status to sulfonamides; Z88.6 Allergy status to analgesic agent; Z90.49 Acquired absence of other specified parts of digestive tract
CPT/HCPCS: 36415; 43239; 72128; 74177; 80053; 80305; 81001; 83605; 83690; 84703; 85025; 85027; 85610; 86140; 87040; 87081; 87086; 96361; 96374; 96375; 96376; 99284; 99285; A9270; G0378; J0696; J1170; J2250; J2270; J2405; J2704; J3010; J7030; J7050; Q9967; 88305; 88342

== ENCOUNTER 2019-03-15 10:12 | Observation (INO) | payer MEDICAID ==
[2019-03-15] MEDS ORDERED: Ondansetron 4 MG Tab.DIS PO ONE (10:15)
[2019-03-15] MEDS ORDERED: Lactated Ringers 1,000 ML IV ONE (10:39)
[2019-03-15] MEDS ORDERED: HYDROmorphone 1 MG/ML Syringe IVPUSH ONE (10:45)
[2019-03-15] MEDS ORDERED: Lidocaine 2% 60 ML, Alum Hydrox/Mag Hydrox/Simeth 360 ML PO PRN ×2 (10:47)
--- NOTE | 2019-03-15 10:51 | EDM.PDOC ---
ED HPI GENERAL MEDICAL PROBLEM - General Chief Complaint: General Stated Complaint: VOMITING/PAIN Time Seen by Provider: 03/15/19 10:40 Source of Information: Reports: Patient, Old Records, RN History Limitations: Reports: No Limitations - History of Present Illness INITIAL COMMENTS - FREE TEXT/NARRATIVE: 43 yo female was recently admitted for mid back pain. Her work up did not reveal anything obvious. She was sent home with Protonix and Carafate. Has not been able to keep any of her meds down since the day before yesterday. Was feeling some better when she left the hospital, her current sx's are just like those she had when in the hospital. No fever. No hematemesis. Bowel and bladder are functioning normally. Pain is worse with coughing. Pain is both R and L of her upper lumber spine, R>L. CT of spine was unremarkable. Onset: Unknown/Unsure Duration: Day(s):, Waxing/Waning Location: Reports: Back Quality: Reports: Ache Severity: Severe Improves with: Reports: Medication Worsens with: Reports: Other (coughing, deep breathing) Context: Reports: Other (see HPI) Associated Symptoms: Reports: Nausea/Vomiting. Denies: Chest Pain, Fever/Chills , Headaches, Shortness of Breath, Syncope Treatments ELECTRONIC TEST TECHNICIAN: Reports: Other (see below) (none due to her nausea and vomiting ) Middle Back Pain Score (Numeric/FACES): 8 Abdomen Pain Score (Numeric/FACES): 8 - Related Data Allergies Allergy/AdvReac Type Severity Reaction Status Date / Time Sulfa (Sulfonamide Allergy Other Verified 03/08/19 09:59 Antibiotics) tramadol Allergy Itching Verified 03/08/19 09:59 Home Meds: Home Meds Cetirizine [ZyrTEC] 10 mg PO DAILY PRN 11/27/15 [History] Norgestimate-Ethinyl Estradiol [Ortho Tri-Cyclen 28 Tablet] 1 tab PO DAILY 11/26 [History] SUMAtriptan [Imitrex] 100 mg PO DAILY PRN 11/27/15 [History] Topiramate [Topamax] 300 mg PO BEDTIME 11/27/15 [History] buPROPion [Wellbutrin XL] 300 mg PO DAILY 11/27/15 [History] Ondansetron [Zofran ODT] 4 mg PO Q4H PRN #12 tab.dis 11/28/15 [Rx] DULoxetine [Cymbalta] 30 mg PO DAILY 02/17/19 [History] Montelukast [Singulair] 10 mg PO DAILY 02/17/19 [History] Cephalexin [Keflex] 250 mg PO Q8H #6 capsule 03/12/19 [Rx] HYDROmorphone [Dilaudid] 2 mg PO Q4H PRN #16 tablet 03/12/19 [Rx] LORazepam 0.5 mg PO Q4H PRN #16 tab 03/12/19 [Rx] Pantoprazole [ProTONIX] 40 mg PO DAILY #30 tab.cr 03/12/19 [Rx] Sucralfate [Carafate] 1 gm PO QID #120 tablet 03/12/19 [Rx] Past Medical History HEENT History: Reports: Allergic Rhinitis, Other (See Below) Other HEENT History: migraines, history of 2 concussions Respiratory History: Reports: Asthma Genitourinary History: Reports: Pyelonephritis, Renal Calculus Musculoskeletal History: Reports: Other (See Below) Other Musculoskeletal History: stress fractures on ankles and knees Neurological History: Reports: Migraines Psychiatric History: Reports: Depression - Infectious Disease History Infectious Disease History: Reports: Chicken Pox - Past Surgical History GI Surgical History: Reports: Appendectomy, Cholecystectomy Social & Family History - Family History Family Medical History: Noncontributory Neurological: Reports: Cerebral Aneurysms - Tobacco Use Smoking Status *Q: Never Smoker - Caffeine Use Caffeine Use: Reports: Coffee - Recreational Drug Use Recreational Drug Use: No ED ROS GENERAL - Review of Systems Review Of Systems: See Below Constitutional: Reports: No Symptoms HEENT: Reports: No Symptoms Respiratory: Reports: No Symptoms Cardiovascular: Reports: No Symptoms Endocrine: Reports: No Symptoms GI/Abdominal: Reports: Abdominal Pain (epigastric), Nausea, Vomiting. Denies: Constipation, Diarrhea, Melena : Reports: Hematuria Musculoskeletal: Reports: Neck Pain (mid) Skin: Reports: No Symptoms Neurological: Reports: No Symptoms Psychiatric: Reports: Other (crying) ED EXAM, GENERAL - Physical Exam Exam: See Below Exam Limited By: No Limitations General Appearance: Alert, WD/WN, Mild Distress, Thin Eye Exam: Bilateral Eye: Normal Inspection Ears: Normal External Exam, Normal Canal, Hearing Grossly Normal Ear Exam: Bilateral Ear: Auricle Normal, Canal Normal Nose: Normal Inspection, No Blood Throat/Mouth: Normal Inspection, Normal Lips, Normal Oropharynx, Normal Voice, No Airway Compromise Head: Atraumatic, Normocephalic Neck: Normal Inspection Respiratory/Chest: No Respiratory Distress, Lungs Clear, Normal Breath Sounds, No Accessory Muscle Use Cardiovascular: Regular Rate, Rhythm, No Edema, Tachycardia GI/Abdominal: Soft, No Distention, Tender (epigastrium) Back Exam: Normal Inspection, Paraspinal Tenderness (seems to be tender to both sides of the upper lumbar spine area. ). No: CVA Tenderness (R), CVA Tenderness (L), Vertebral Tenderness Neurological: Alert, Oriented, CN II-XII Intact, Normal Cognition, No Motor/ Sensory Deficits Psychiatric: Normal Affect, Normal Mood Skin Exam: Warm, Dry, Intact, Normal Color, No Rash Course - Vital Signs Text/Narrative:: Got partial relief with a GI cocktail po. Dr. Hampton called @ 1316h Last Recorded V/S: Last Vital Signs Temp 35.8 C 03/15/19 10:32 Pulse 116 H 03/15/19 10:32 Resp 21 H 03/15/19 10:32 BP 139/83 03/15/19 10:32 Pulse Ox 100 03/15/19 10:32 - Orders/Labs/Meds Orders: Active Orders 24 hr Category Date Time Status CULTURE URINE [RM] Stat Lab 03/15/19 12:15 Received Pantoprazole [ProTONIX] Med 03/15/19 12:00 Active 40 mg PO DAILY Medication Orders Pantoprazole Sodium (Protonix) 40 mg PO DAILY [facility] Last Admin: 03/15/19 12:16 Dose: 40 mg Labs: Laboratory Tests 03/15/19 03/15/19 03/15/19 Range/Units 10:53 10:59 10:59 WBC 4.5 (4.5-11.0) K/uL RBC 4.96 (3.30-5.50) M/uL Hgb 14.2 (12.0-15.0) g/dL Hct 42.2 (36.0-48.0) % MCV 85 (80-98) fL MCH 29 (27-31) pg MCHC 34 (32-36) % Plt Count 254 (150-400) K/uL Sodium 136 L (140-148) mmol/L Potassium 4.6 (3.6-5.2) mmol/L Chloride 104 (100-108) mmol/L Carbon Dioxide 20 L (21-32) mmol/L Anion Gap 16.6 H (5.0-14.0) mmol/L BUN 10 D (7-18) mg/dL Creatinine 0.9 (0.6-1.0) mg/dL Est Cr Clr Drug Dosing 55.06 mL/min Estimated GFR (MDRD) > 60 (>60) Glucose 89 (74-106) mg/dL Calcium 8.5 (8.5-10.1) mg/dL Lipase 48 L (73-393) U/L Urine Color (YELLOW) Urine Appearance (CLEAR) Urine pH (5.0-8.0) Ur Specific [place] (1.008-1.030) Urine Protein (NEGATIVE) mg/dL Urine Glucose (UA) (NEGATIVE) mg/dL Urine Ketones (NEGATIVE) mg/dL Urine Occult Blood (NEGATIVE) Urine Nitrite (NEGATIVE) Urine Bilirubin (NEGATIVE) Urine Urobilinogen (0.2-1.0) EU/dL Ur Leukocyte Esterase (NEGATIVE) Urine RBC (0-5) Urine WBC (0-5) Ur Epithelial Cells Amorphous Sediment Urine Bacteria Urine Mucus 03/15/19 Range/Units 11:52 WBC (4.5-11.0) K/uL RBC (3.30-5.50) M/uL Hgb (12.0-15.0) g/dL Hct (36.0-48.0) % MCV (80-98) fL MCH (27-31) pg MCHC (32-36) % Plt Count (150-400) K/uL Sodium (140-148) mmol/L Potassium (3.6-5.2) mmol/L Chloride (100-108) mmol/L Carbon Dioxide (21-32) mmol/L Anion Gap (5.0-14.0) mmol/L BUN (7-18) mg/dL Creatinine (0.6-1.0) mg/dL Est Cr Clr Drug Dosing mL/min Estimated GFR (MDRD) (>60) Glucose (74-106) mg/dL Calcium (8.5-10.1) mg/dL Lipase (73-393) U/L Urine Color [place] A (YELLOW) Urine Appearance Cloudy A (CLEAR) Urine pH 7.0 (5.0-8.0) Ur Specific [place] >= 1.030 (1.008-1.030) Urine Protein 30 H (NEGATIVE) mg/dL Urine Glucose (UA) Negative (NEGATIVE) mg/dL Urine Ketones Negative (NEGATIVE) mg/dL Urine Occult Blood Large H (NEGATIVE) Urine Nitrite Negative (NEGATIVE) Urine Bilirubin Negative (NEGATIVE) Urine Urobilinogen 0.2 (0.2-1.0) EU/dL Ur Leukocyte Esterase Moderate H (NEGATIVE) Urine RBC 50-75 H (0-5) Urine WBC 20-30 H (0-5) Ur Epithelial Cells Moderate Amorphous Sediment Occasional Urine Bacteria Moderate Urine Mucus Rare Meds: Medications Generic Name Dose Route Start Last Admin Trade Name Freq PRN Reason Stop Dose Admin Pantoprazole Sodium 40 mg 03/15/19 12:00 03/15/19 12:16 Protonix PO 40 mg DAILY MAGDIEL Administration Discontinued Medications Generic Name Dose Route Start Last Admin Trade Name Freq PRN Reason Stop Dose Admin Lidocaine HCl 60 ml/ Al 0 ml 03/15/19 10:47 Hydroxide/Mg Hydroxide 360 ml PO ASDIRECTED PRN PAIN Al Hydroxide/Mg Hydroxide 15 0 ml 03/15/19 12:00 03/15/19 11:25 ml/ Lidocaine HCl 15 ml PO 03/15/19 12:01 30 ml ONETIME ONE Administration Hydromorphone HCl 1 mg 03/15/19 10:45 03/15/19 11:07 Dilaudid IVPUSH 03/15/19 10:46 1 mg ONETIME ONE Administration Lactated Ringer's 1,000 mls @ 1,000 mls/hr 03/15/19 10:39 03/15/19 11:09 Ringers, Lactated IV 03/15/19 11:38 1,000 mls/hr BOLUS ONE Administration Ondansetron HCl 4 mg 03/15/19 10:15 03/15/19 10:36 Zofran Odt PO 03/15/19 10:16 4 mg ONETIME ONE Administration Ondansetron HCl 4 mg 03/15/19 12:22 03/15/19 12:26 Zofran IVPUSH 03/15/19 12:23 4 mg ONETIME ONE Administration Oxycodone/Acetaminophen 1 tab 03/15/19 11:55 03/15/19 12:15 Percocet 325-5 Mg PO 03/15/19 11:56 1 tab ONETIME STA Administration Sucralfate 1 gm 03/15/19 11:32 03/15/19 11:51 Carafate PO 03/15/19 11:33 1 gm ONETIME ONE Administration Departure - Departure Time of Disposition: 13:25 Disposition: Refer to Observation Condition: Fair Clinical Impression: Mild dehydration Gastritis Qualifiers: Gastritis type: unspecified gastritis Chronicity: unspecified Gastritis bleeding: without bleeding Qualified Code(s): K29.70 - Gastritis, unspecified, without bleeding Nausea and vomiting Qualifiers: Vomiting type: unspecified Vomiting Intractability: unspecified Qualified Code( s): R11.2 - Nausea with vomiting, unspecified - Discharge Information *PRESCRIPTION DRUG MONITORING PROGRAM REVIEWED*: No *COPY OF PRESCRIPTION DRUG MONITORING REPORT IN PATIENT WHIT: No Referrals: Arina Gallego MD [Primary Care Provider] - Forms: ED Department Discharge Sepsis Event Note - Evaluation Sepsis Screening Result: Possible Sepsis Risk - Focused Exam Vital Signs: Vital Signs Temp Pulse Resp BP Pulse Ox 03/15/19 10:32 35.8 C 116 H 21 H 139/83 100 03/15/19 10:24 35.8 C 116 H 21 H 139/83 100 Date Exam was Performed: 03/15/19 Time Exam was Performed: 13:18 - My Orders Last 24 Hours: My Active Orders 03/15/19 12:00 Pantoprazole [ProTONIX] 40 mg PO DAILY 03/15/19 12:15 CULTURE URINE [RM] Stat - Assessment/Plan Last 24 Hours: My Active Orders 03/15/19 12:00 Pantoprazole [ProTONIX] 40 mg PO DAILY 03/15/19 12:15 CULTURE URINE [RM] Stat
[2019-03-15] MEDS ORDERED: Sucralfate Suspension 1 GM/10 ML Cup PO ONE (11:32)
[2019-03-15] MEDS ORDERED: Acetaminophen/oxyCODONE 325-5 MG Tab PO STA (11:55)
[2019-03-15] MEDS ORDERED: Alum Hydrox/Mag Hydrox/Simeth 15 ML, Lidocaine 2% 15 ML PO ONE ×2 (12:00)
[2019-03-15] MEDS ORDERED: Pantoprazole 40 MG Tab.CR PO SCH (12:00)
[2019-03-15] MEDS ORDERED: Ondansetron 4 MG/2 ML SDV IVPUSH ONE (12:22)
[2019-03-15] MEDS ORDERED: Ketorolac 30 MG/ML SDV IVPUSH ONE (14:30)
--- NOTE | 2019-03-15 14:48 | PCM.HP.2 ---
H&P History of Present Illness - General Date of Service: 03/15/19 Admit Problem/Dx: Admission Diagnosis/Problem Admission Diagnosis/Problem Pain Source of Information: Patient, Family, Old Records, Provider, RN Notes Reviewed History Limitations: Reports: No Limitations - History of Present Illness Initial Comments - Free Text/Narative: Ms. Quinones is a 43-year-old woman who was admitted through the emergency department observation status for further evaluation and management of persistent back and flank pain, nausea vomiting, and hematuria. She was initially hospitalized in early January with pyelonephritis, question of possible stone noted at that time. She was treated with appropriate course of antibiotics. She returned on 08 March with persistent pain, CT scan of the abdomen pelvis was unremarkable. She developed increased nausea and vomiting, EGD showed only mild gastritis. CT scan of the thoracic spine was also obtained showing no acute abnormalities to explain her symptoms. She was discharged home on the , initially did well but now over the past 2 days has had increase in her pain as well as nausea and vomiting. White cell count remains normal, she is mildly tachycardic, but afebrile. Middle Back Pain Score (Numeric/FACES): 8 Abdomen Pain Score (Numeric/FACES): 8 - Related Data Allergies/Adverse Reactions: Allergies Allergy/AdvReac Type Severity Reaction Status Date / Time Sulfa (Sulfonamide Allergy Other Verified 03/08/19 09:59 Antibiotics) tramadol Allergy Itching Verified 03/08/19 09:59 Home Medications: Home Meds Cetirizine [ZyrTEC] 10 mg PO DAILY PRN 11/27/15 [History] Norgestimate-Ethinyl Estradiol [Ortho Tri-Cyclen 28 Tablet] 1 tab PO DAILY 11/26 [History] SUMAtriptan [Imitrex] 100 mg PO DAILY PRN 11/27/15 [History] Topiramate [Topamax] 300 mg PO BEDTIME 11/27/15 [History] buPROPion [Wellbutrin XL] 300 mg PO DAILY 11/27/15 [History] Ondansetron [Zofran ODT] 4 mg PO Q4H PRN #12 tab.dis 11/28/15 [Rx] DULoxetine [Cymbalta] 30 mg PO DAILY 02/17/19 [History] Montelukast [Singulair] 10 mg PO DAILY 02/17/19 [History] Cephalexin [Keflex] 250 mg PO Q8H #6 capsule 03/12/19 [Rx] HYDROmorphone [Dilaudid] 2 mg PO Q4H PRN #16 tablet 03/12/19 [Rx] LORazepam 0.5 mg PO Q4H PRN #16 tab 03/12/19 [Rx] Pantoprazole [ProTONIX] 40 mg PO DAILY #30 tab.cr 03/12/19 [Rx] Sucralfate [Carafate] 1 gm PO QID #120 tablet 03/12/19 [Rx] Past Medical History HEENT History: Reports: Allergic Rhinitis, Other (See Below) Other HEENT History: migraines, history of 2 concussions Respiratory History: Reports: Asthma Genitourinary History: Reports: Pyelonephritis, Renal Calculus Musculoskeletal History: Reports: Other (See Below) Other Musculoskeletal History: stress fractures on ankles and knees Neurological History: Reports: Migraines Psychiatric History: Reports: Depression - Infectious Disease History Infectious Disease History: Reports: Chicken Pox - Past Surgical History GI Surgical History: Reports: Appendectomy, Cholecystectomy Social & Family History - Family History Family Medical History: Noncontributory Neurological: Reports: Cerebral Aneurysms - Tobacco Use Smoking Status *Q: Never Smoker - Caffeine Use Caffeine Use: Reports: Coffee - Recreational Drug Use Recreational Drug Use: No H&P Review of Systems - Review of Systems: Review Of Systems: See Below General: Reports: Fever, Chills, Weakness, Decreased Appetite HEENT: Reports: No Symptoms Pulmonary: Reports: No Symptoms Cardiovascular: Reports: No Symptoms Gastrointestinal: Reports: Decreased Appetite, Nausea, Vomiting. Denies: Black Stool, Bloody Stool, Constipation, Diarrhea, Difficulty Swallowing, Distension Genitourinary: Reports: Hematuria, Flank Pain. Denies: Dysuria, Frequency, Burning, Pain, Urgency, Incontinence, Retention Musculoskeletal: Reports: Back Pain. Denies: Neck Pain Skin: Reports: No Symptoms Psychiatric: Reports: No Symptoms Neurological: Reports: No Symptoms Hematologic/Lymphatic: Reports: No Symptoms Immunologic: Reports: No Symptoms Exam - Exam Exam: See Below - Vital Signs Vital Signs: Last Vital Signs Temp 96.5 F 03/15/19 10:32 Pulse 116 H 03/15/19 10:32 Resp 21 H 03/15/19 10:32 BP 139/83 03/15/19 10:32 Pulse Ox 100 03/15/19 10:32 Weight: 93 lb 7.616 oz - Exam General: Alert, Oriented, Cooperative, Moderate Distress HEENT: Conjunctiva Clear, Hearing Intact, Mucosa Moist & [place], Normal Nasal Septum, Posterior Pharynx Clear, Pupils Equal Neck: Supple, Trachea Midline, +2 Carotid Pulse wo Bruit Lungs: Clear to Auscultation, Normal Respiratory Effort Cardiovascular: Regular Rate, Regular Rhythm, Normal S1, Normal S2. No: Systolic Murmur, Diastolic Murmur GI/Abdominal Exam: Soft, Non-Tender, No Organomegaly, No Distention Back Exam: Normal Inspection, Full Range of Motion, CVA Tenderness (R), CVA Tenderness (L), Paraspinal Tenderness Extremities: Non-Tender, No Pedal Edema Skin: Warm, Dry, Intact Neurological: Cranial Nerves Intact, Strength Equal Bilateral, Normal Speech, Normal Tone, Sensation Intact. No: Focal Deficit Neuro Extensive - Mental Status: Alert, Oriented x3, Normal Mood/Affect, Normal Cognition, Memory Intact - Patient Data Lab Results Last 24 hrs: Laboratory Results - last 24 hr 03/15/19 03/15/19 03/15/19 Range/Units 10:53 10:59 10:59 WBC 4.5 (4.5-11.0) K/uL RBC 4.96 (3.30-5.50) M/uL Hgb 14.2 (12.0-15.0) g/dL Hct 42.2 (36.0-48.0) % MCV 85 (80-98) fL MCH 29 (27-31) pg MCHC 34 (32-36) % Plt Count 254 (150-400) K/uL Sodium 136 L (140-148) mmol/L Potassium 4.6 (3.6-5.2) mmol/L Chloride 104 (100-108) mmol/L Carbon Dioxide 20 L (21-32) mmol/L Anion Gap 16.6 H (5.0-14.0) mmol/L BUN 10 D (7-18) mg/dL Creatinine 0.9 (0.6-1.0) mg/dL Est Cr Clr Drug Dosing 55.06 mL/min Estimated GFR (MDRD) > 60 (>60) Glucose 89 (74-106) mg/dL Calcium 8.5 (8.5-10.1) mg/dL Lipase 48 L (73-393) U/L Urine Color (YELLOW) Urine Appearance (CLEAR) Urine pH (5.0-8.0) Ur Specific [place] (1.008-1.030) Urine Protein (NEGATIVE) mg/dL Urine Glucose (UA) (NEGATIVE) mg/dL Urine Ketones (NEGATIVE) mg/dL Urine Occult Blood (NEGATIVE) Urine Nitrite (NEGATIVE) Urine Bilirubin (NEGATIVE) Urine Urobilinogen (0.2-1.0) EU/dL Ur Leukocyte Esterase (NEGATIVE) Urine RBC (0-5) Urine WBC (0-5) Ur Epithelial Cells Amorphous Sediment Urine Bacteria Urine Mucus 03/15/19 Range/Units 11:52 WBC (4.5-11.0) K/uL RBC (3.30-5.50) M/uL Hgb (12.0-15.0) g/dL Hct (36.0-48.0) % MCV (80-98) fL MCH (27-31) pg MCHC (32-36) % Plt Count (150-400) K/uL Sodium (140-148) mmol/L Potassium (3.6-5.2) mmol/L Chloride (100-108) mmol/L Carbon Dioxide (21-32) mmol/L Anion Gap (5.0-14.0) mmol/L BUN (7-18) mg/dL Creatinine (0.6-1.0) mg/dL Est Cr Clr Drug Dosing mL/min Estimated GFR (MDRD) (>60) Glucose (74-106) mg/dL Calcium (8.5-10.1) mg/dL Lipase (73-393) U/L Urine Color [place] A (YELLOW) Urine Appearance Cloudy A (CLEAR) Urine pH 7.0 (5.0-8.0) Ur Specific [place] >= 1.030 (1.008-1.030) Urine Protein 30 H (NEGATIVE) mg/dL Urine Glucose (UA) Negative (NEGATIVE) mg/dL Urine Ketones Negative (NEGATIVE) mg/dL Urine Occult Blood Large H (NEGATIVE) Urine Nitrite Negative (NEGATIVE) Urine Bilirubin Negative (NEGATIVE) Urine Urobilinogen 0.2 (0.2-1.0) EU/dL Ur Leukocyte Esterase Moderate H (NEGATIVE) Urine RBC 50-75 H (0-5) Urine WBC 20-30 H (0-5) Ur Epithelial Cells Moderate Amorphous Sediment Occasional Urine Bacteria Moderate Urine Mucus Rare Result Diagrams: 03/15/19 10:59 03/15/19 10:59 Sepsis Event Note - Evaluation Sepsis Screening Result: Possible Sepsis Risk - Focused Exam Vital Signs: Vital Signs Temp Pulse Resp BP Pulse Ox 03/15/19 10:32 96.5 F 116 H 21 H 139/83 100 03/15/19 10:24 96.5 F 116 H 21 H 139/83 100 Date Exam was Performed: 03/15/19 Time Exam was Performed: 14:49 *Q Meaningful Use (ADM) - VTE Risk Assess *Q Each Risk Factor Represents 1 Point: Age 41 - 59 years Total Score 1 Point Risk Factors: 1 Each Risk Factor Represents 2 Points: None Total Score 2 Point Risk Factors: 0 Each Risk Factor Represents 3 Points: None Total Score 3 Point Risk Factors: 0 Each Risk Factor Represents 5 Points: None Total Score 5 Point Risk Factors: 0 Venous Thromboembolism Risk Factor Score *Q: 1 Problem List Initiated/Reviewed/Updated: Yes Orders Last 24hrs: Active Orders 24 hr Category Date Time Status Patient Status Manage Transfer [TRANSFER] Routine ADT 03/15/19 14:22 Active Chest Abdomen Pelvis w Cont [CT] Stat Exams 03/15/19 14:20 Ordered CRP [C-REACTIVE PROTEIN] [CHEM] Stat Lab 03/15/19 13:55 Ordered CULTURE URINE [RM] Stat Lab 03/15/19 12:15 Received PROCALCITONIN [CHEM] Stat Lab 03/15/19 13:55 Ordered Pantoprazole [ProTONIX] Med 03/15/19 12:00 Active 40 mg PO DAILY Resuscitation Status Routine Resus Stat 03/15/19 14:26 Ordered Medication Orders Pantoprazole Sodium (Protonix) 40 mg PO DAILY MAGDIEL Last Admin: 03/15/19 12:16 Dose: 40 mg Assessment/Plan Comment:: ASSESSMENT AND PLAN PERSISTENT NAUSEA WITH INTERMITTENT VOMITING -initially thought to be related to her pain plus or minus contribution from infection. Symptoms have persisted despite improvements in pain and no strong evidence to support a significant infection. Not much better with use of a proton pump inhibitor and sucralfate. Recurrent symptoms after recent discharge, specific etiology not apparent. -CT scan of abdomen and pelvis with IV contrast -Continue PPI and sucralfate -Hold narcotics MID BACK AND FLANK PAIN-recurrent pain after discharge, again no specific etiology identified. Tenderness to palpation in the area of pain, she shows no limited range of motion or movement. Pain does not seem to be worsened by activity. CT scan of the thoracic spine obtained during last admission showed no abnormalities. -CT scan of chest abdomen and pelvis as above -CRP and procalcitonin pending -Oral Dilaudid for pain PERSISTENT HEMATURIA-there are some white cells in the urine, no other significant evidence of infection. Did with antibiotics during last hospitalization with no improvement in symptoms and mixed brandon on urine culture. -Out Patient appointment with urology -CT scan as above Maintenance issues - - DVT prophylaxis -mechanical - GI prophylaxis -Protonix as above - Nutrition -regular diet - [place] catheter -not indicated ADMISSION STATUS-she will be admitted to observation status, expect no more than a 48-hour hospital stay for evaluation and management of symptoms and problems as outlined above. Disposition -I would anticipate discharge home after the hospital stay Primary care physician - Dr. Arina Gallego - Mortality Measure Prognosis:: Good
[2019-03-15] MEDS ORDERED: diphenhydrAMINE 50 MG/ML SDV IVPUSH ONE (14:55)
[2019-03-15] MEDS ORDERED: Iopamidol 612 MG/ML 100 ML Bottle IV SCH (15:00)
[2019-03-15] MEDS ORDERED: Sodium Chloride 0.9% 100 ML IV SCH (15:00)
[2019-03-15] MEDS: Sodium Chloride 0.9% 10 ML Syringe FLUSH ONE ×2 (15:01→15:32)
[2019-03-15] MEDS ORDERED: Polyethylene Glycol 3350 Powder 17 GM Packet PO PRN (15:40)
[2019-03-15] MEDS ORDERED: Acetaminophen 325 MG Tab PO PRN (15:40)
[2019-03-15] MEDS ORDERED: Sodium Chloride 0.9% 10 ML Syringe FLUSH PRN (15:40)
[2019-03-15] MEDS: HYDROmorphone 2 MG Tab PO PRN ×2 (16:06→20:30)
--- NOTE | 2019-03-15 16:23 | CRLCT ---
INDICATION: Back and flank pain. Hematuria. Nausea and vomiting. TECHNIQUE: Axial images chest, abdomen and pelvis. Sagittal and coronal reconstructions. 70 mL of Isovue IV. COMPARISON: 03/08/2019. FINDINGS: Compromised examination due to patient motion. Chest: Normal heart size. No pericardial effusion. Normal caliber thoracic aorta. No lymphadenopathy is identified. Lungs are clear. No pleural fluid or pneumothorax. No acute bony abnormality. Abdomen and pelvis: Stable tiny low-density lesion in the liver on axial image 99. This is likely benign. There is a tiny amount of pneumobilia. Status post cholecystectomy. Stable mild prominence of the bile ducts, presumably related to the postcholecystectomy state. Spleen is normal size. Pancreas appears unremarkable. No adrenal gland abnormality. Kidneys are normal size. No suspicious renal lesions. No hydronephrosis. Normal caliber abdominal aorta. Moderate the large amount of stool throughout the colon. No abnormally dilated bowel is seen to suggest obstruction. The appendix is not definitely identified. No free air. No free fluid. Unremarkable urinary bladder. Uterus is present. Right ovarian cyst is again noted, measuring up to 2.7 cm. No acute bony abnormality. IMPRESSION: 1. Compromised study due to patient motion. 2. No CT evidence of an acute thoracic abnormality. 3. Tiny amount of pneumobilia is noted. This is nonspecific but most commonly seen in patients with prior biliary intervention (i.e. sphincterotomy). Clinically correlate. 4. Moderate to large amount of stool. 5. Right ovarian cyst is redemonstrated. Dictated by Sid Avalos MD @ 03/15/2019 4:21:40 PM Please note that all CT scans at this facility use dose modulation, iterative reconstruction, and/or weight-based dosing when appropriate to reduce radiation dose to as low as reasonably achievable. Dictated by: Sid Avalos MD @ 03/15/2019 16:21:50 (Electronically Signed)
[2019-03-15] MEDS: LORazepam 0.5 MG Tab PO PRN (17:09)
[2019-03-15] MEDS: Sodium Chloride 0.9% 1,000 ML IV SCH (17:11)
[2019-03-15] MEDS: Sucralfate 1 GM Tab PO SCH ×2 (17:25→20:37)
[2019-03-15] MEDS: Gabapentin 100 MG Cap PO SCH ×2 (17:25→20:36)
[2019-03-15] MEDS: Pantoprazole 40 MG Vial IV SCH (17:25)
[2019-03-15] MEDS: Topiramate 100 MG Tab PO SCH (20:36)
[2019-03-16] MEDS: Sodium Chloride 0.9% 1,000 ML IV SCH ×3 (01:29→20:46)
[2019-03-16] MEDS: Pantoprazole 40 MG Vial IV SCH ×2 (05:31→17:16)
[2019-03-16] MEDS: HYDROmorphone 2 MG Tab PO PRN (05:34)
[2019-03-16] MEDS: LORazepam 0.5 MG Tab PO PRN ×5 (05:38→23:09)
[2019-03-16] MEDS: Sucralfate 1 GM Tab PO SCH ×4 (07:47→21:28)
[2019-03-16] MEDS: Gabapentin 100 MG Cap PO SCH ×2 (09:41→21:28)
[2019-03-16] MEDS: buPROPion 150 MG Tab.ER PO SCH (09:41)
[2019-03-16] MEDS: DULoxetine 30 MG Cap PO SCH (09:41)
[2019-03-16] MEDS: NORGESTIMATE ETHINYL ESTRADIOL PO SCH (09:49)
[2019-03-16] MEDS: Montelukast 10 MG Tab PO SCH (09:49)
--- NOTE | 2019-03-16 10:06 | PCM.PN ---
- General Info Date of Service: 03/16/19 Subjective Update: Ms. Quinones continues to experience mid back pain as well as nausea with vomiting. Evaluation this point has been entirely negative showing no obvious cause of either symptom. She has remained hemodynamically stable and has been afebrile. Functional Status: Reports: Urinating - Review of Systems General: Denies: Fever, Chills Pulmonary: Reports: No Symptoms Cardiovascular: Reports: No Symptoms Gastrointestinal: Reports: Nausea, Vomiting. Denies: Abdominal Pain, Constipation, Diarrhea, Difficulty Swallowing Genitourinary: Reports: No Symptoms Musculoskeletal: Reports: Back Pain - Patient Data Vitals - Most Recent: Last Vital Signs Temp 97.1 F 03/16/19 07:00 Pulse 87 03/16/19 07:00 Resp 16 03/16/19 07:00 BP 104/71 03/16/19 07:00 Pulse Ox 100 03/16/19 07:20 Weight - Most Recent: 93 lb 7.616 oz I&O - Last 24 Hours: Intake & Output 03/15/19 03/16/19 03/16/19 22:59 06:59 14:59 Intake Total 320 1710 520 Output Total 200 750 Balance 320 1510 -230 Lab Results Last 24 Hours: Laboratory Results - last 24 hr 03/15/19 03/15/19 03/15/19 Range/Units 10:53 10:59 10:59 WBC 4.5 (4.5-11.0) K/uL RBC 4.96 (3.30-5.50) M/uL Hgb 14.2 (12.0-15.0) g/dL Hct 42.2 (36.0-48.0) % MCV 85 (80-98) fL MCH 29 (27-31) pg MCHC 34 (32-36) % Plt Count 254 (150-400) K/uL Neut % (Auto) (36-66) % Lymph % (Auto) (24-44) % [place] % (Auto) (2-6) % Eos % (Auto) (2-4) % Baso % (Auto) (0-1) % Sodium 136 L (140-148) mmol/L Potassium 4.6 (3.6-5.2) mmol/L Chloride 104 (100-108) mmol/L Carbon Dioxide 20 L (21-32) mmol/L Anion Gap 16.6 H (5.0-14.0) mmol/L BUN 10 D (7-18) mg/dL Creatinine 0.9 (0.6-1.0) mg/dL Est Cr Clr Drug Dosing 55.06 mL/min Estimated GFR (MDRD) > 60 (>60) Glucose 89 (74-106) mg/dL Calcium 8.5 (8.5-10.1) mg/dL C-Reactive Protein (0.0-0.3) mg/dL Lipase 48 L (73-393) U/L Procalcitonin ng/mL HCG, Qual Urine Color (YELLOW) Urine Appearance (CLEAR) Urine pH (5.0-8.0) Ur Specific [place] (1.008-1.030) Urine Protein (NEGATIVE) mg/dL Urine Glucose (UA) (NEGATIVE) mg/dL Urine Ketones (NEGATIVE) mg/dL Urine Occult Blood (NEGATIVE) Urine Nitrite (NEGATIVE) Urine Bilirubin (NEGATIVE) Urine Urobilinogen (0.2-1.0) EU/dL Ur Leukocyte Esterase (NEGATIVE) Urine RBC (0-5) Urine WBC (0-5) Ur Epithelial Cells Amorphous Sediment Urine Bacteria Urine Mucus Urine Opiates Screen (NEGATIVE) Ur Oxycodone Screen (NEGATIVE) Urine Methadone Screen (NEGATIVE) Ur Propoxyphene Screen (NEGATIVE) Ur Barbiturates Screen (NEGATIVE) Ur Tricyclics Screen (NEGATIVE) Ur Phencyclidine Scrn (NEGATIVE) Ur Amphetamine Screen (NEGATIVE) U Methamphetamines Scrn (NEGATIVE) Urine MDMA Screen (NEGATIVE) U Benzodiazepines Scrn (NEGATIVE) U Cocaine Metab Screen (NEGATIVE) U Marijuana (THC) Screen (NEGATIVE) 03/15/19 03/15/19 03/15/19 Range/Units 11:52 13:55 13:55 WBC (4.5-11.0) K/uL RBC (3.30-5.50) M/uL Hgb (12.0-15.0) g/dL Hct (36.0-48.0) % MCV (80-98) fL MCH (27-31) pg MCHC (32-36) % Plt Count (150-400) K/uL Neut % (Auto) (36-66) % Lymph % (Auto) (24-44) % [place] % (Auto) (2-6) % Eos % (Auto) (2-4) % Baso % (Auto) (0-1) % Sodium (140-148) mmol/L Potassium (3.6-5.2) mmol/L Chloride (100-108) mmol/L Carbon Dioxide (21-32) mmol/L Anion Gap (5.0-14.0) mmol/L BUN (7-18) mg/dL Creatinine (0.6-1.0) mg/dL Est Cr Clr Drug Dosing mL/min Estimated GFR (MDRD) (>60) Glucose (74-106) mg/dL Calcium (8.5-10.1) mg/dL C-Reactive Protein 0.01 (0.0-0.3) mg/dL Lipase (73-393) U/L Procalcitonin < 0.05 ng/mL HCG, Qual Urine Color [place] A (YELLOW) Urine Appearance Cloudy A (CLEAR) Urine pH 7.0 (5.0-8.0) Ur Specific [place] >= 1.030 (1.008-1.030) Urine Protein 30 H (NEGATIVE) mg/dL Urine Glucose (UA) Negative (NEGATIVE) mg/dL Urine Ketones Negative (NEGATIVE) mg/dL Urine Occult Blood Large H (NEGATIVE) Urine Nitrite Negative (NEGATIVE) Urine Bilirubin Negative (NEGATIVE) Urine Urobilinogen 0.2 (0.2-1.0) EU/dL Ur Leukocyte Esterase Moderate H (NEGATIVE) Urine RBC 50-75 H (0-5) Urine WBC 20-30 H (0-5) Ur Epithelial Cells Moderate Amorphous Sediment Occasional Urine Bacteria Moderate Urine Mucus Rare Urine Opiates Screen (NEGATIVE) Ur Oxycodone Screen (NEGATIVE) Urine Methadone Screen (NEGATIVE) Ur Propoxyphene Screen (NEGATIVE) Ur Barbiturates Screen (NEGATIVE) Ur Tricyclics Screen (NEGATIVE) Ur Phencyclidine Scrn (NEGATIVE) Ur Amphetamine Screen (NEGATIVE) U Methamphetamines Scrn (NEGATIVE) Urine MDMA Screen (NEGATIVE) U Benzodiazepines Scrn (NEGATIVE) U Cocaine Metab Screen (NEGATIVE) U Marijuana (THC) Screen (NEGATIVE) 03/15/19 03/15/19 03/16/19 Range/Units 15:52 23:59 06:10 WBC 3.4 L (4.5-11.0) K/uL RBC 4.18 (3.30-5.50) M/uL Hgb 11.7 L D (12.0-15.0) g/dL Hct 36.0 (36.0-48.0) % MCV 86 (80-98) fL MCH 28 (27-31) pg MCHC 33 (32-36) % Plt Count 191 (150-400) K/uL Neut % (Auto) 37 (36-66) % Lymph % (Auto) 53 H (24-44) % [place] % (Auto) 7 H (2-6) % Eos % (Auto) 3 (2-4) % Baso % (Auto) 1 (0-1) % Sodium (140-148) mmol/L Potassium (3.6-5.2) mmol/L Chloride (100-108) mmol/L Carbon Dioxide (21-32) mmol/L Anion Gap (5.0-14.0) mmol/L BUN (7-18) mg/dL Creatinine (0.6-1.0) mg/dL Est Cr Clr Drug Dosing mL/min Estimated GFR (MDRD) (>60) Glucose (74-106) mg/dL Calcium (8.5-10.1) mg/dL C-Reactive Protein (0.0-0.3) mg/dL Lipase (73-393) U/L Procalcitonin ng/mL HCG, Qual Negative Urine Color (YELLOW) Urine Appearance (CLEAR) Urine pH (5.0-8.0) Ur Specific [place] (1.008-1.030) Urine Protein (NEGATIVE) mg/dL Urine Glucose (UA) (NEGATIVE) mg/dL Urine Ketones (NEGATIVE) mg/dL Urine Occult Blood (NEGATIVE) Urine Nitrite (NEGATIVE) Urine Bilirubin (NEGATIVE) Urine Urobilinogen (0.2-1.0) EU/dL Ur Leukocyte Esterase (NEGATIVE) Urine RBC (0-5) Urine WBC (0-5) Ur Epithelial Cells Amorphous Sediment Urine Bacteria Urine Mucus Urine Opiates Screen Presumptive positive H (NEGATIVE) Ur Oxycodone Screen Presumptive positive H (NEGATIVE) Urine Methadone Screen Negative (NEGATIVE) Ur Propoxyphene Screen Negative (NEGATIVE) Ur Barbiturates Screen Negative (NEGATIVE) Ur Tricyclics Screen Negative (NEGATIVE) Ur Phencyclidine Scrn Negative (NEGATIVE) Ur Amphetamine Screen Negative (NEGATIVE) U Methamphetamines Scrn Negative (NEGATIVE) Urine MDMA Screen Negative (NEGATIVE) U Benzodiazepines Scrn Presumptive positive H (NEGATIVE) U Cocaine Metab Screen Negative (NEGATIVE) U Marijuana (THC) Screen Negative (NEGATIVE) 03/16/19 Range/Units 06:10 WBC (4.5-11.0) K/uL RBC (3.30-5.50) M/uL Hgb (12.0-15.0) g/dL Hct (36.0-48.0) % MCV (80-98) fL MCH (27-31) pg MCHC (32-36) % Plt Count (150-400) K/uL Neut % (Auto) (36-66) % Lymph % (Auto) (24-44) % [place] % (Auto) (2-6) % Eos % (Auto) (2-4) % Baso % (Auto) (0-1) % Sodium 138 L (140-148) mmol/L Potassium 3.8 (3.6-5.2) mmol/L Chloride 111 H (100-108) mmol/L Carbon Dioxide 19 L (21-32) mmol/L Anion Gap 11.8 (5.0-14.0) mmol/L BUN 10 (7-18) mg/dL Creatinine 0.8 (0.6-1.0) mg/dL Est Cr Clr Drug Dosing 61.94 mL/min Estimated GFR (MDRD) > 60 (>60) Glucose 115 H (74-106) mg/dL Calcium 7.8 L (8.5-10.1) mg/dL C-Reactive Protein (0.0-0.3) mg/dL Lipase (73-393) U/L Procalcitonin ng/mL HCG, Qual Urine Color (YELLOW) Urine Appearance (CLEAR) Urine pH (5.0-8.0) Ur Specific [place] (1.008-1.030) Urine Protein (NEGATIVE) mg/dL Urine Glucose (UA) (NEGATIVE) mg/dL Urine Ketones (NEGATIVE) mg/dL Urine Occult Blood (NEGATIVE) Urine Nitrite (NEGATIVE) Urine Bilirubin (NEGATIVE) Urine Urobilinogen (0.2-1.0) EU/dL Ur Leukocyte Esterase (NEGATIVE) Urine RBC (0-5) Urine WBC (0-5) Ur Epithelial Cells Amorphous Sediment Urine Bacteria Urine Mucus Urine Opiates Screen (NEGATIVE) Ur Oxycodone Screen (NEGATIVE) Urine Methadone Screen (NEGATIVE) Ur Propoxyphene Screen (NEGATIVE) Ur Barbiturates Screen (NEGATIVE) Ur Tricyclics Screen (NEGATIVE) Ur Phencyclidine Scrn (NEGATIVE) Ur Amphetamine Screen (NEGATIVE) U Methamphetamines Scrn (NEGATIVE) Urine MDMA Screen (NEGATIVE) U Benzodiazepines Scrn (NEGATIVE) U Cocaine Metab Screen (NEGATIVE) U Marijuana (THC) Screen (NEGATIVE) Med Orders - Current: Current Medications Acetaminophen (Tylenol) 650 mg PO Q4H PRN PRN Reason: Pain (Mild 1-3)/fever Last Admin: 03/15/19 17:09 Dose: 650 mg Bupropion HCl (Wellbutrin Xl) 300 mg PO DAILY [facility] Last Admin: 03/16/19 09:41 Dose: 300 mg Duloxetine HCl (Cymbalta) 30 mg PO DAILY [facility] Last Admin: 03/16/19 09:41 Dose: 30 mg Gabapentin (Neurontin) 100 mg PO BID [facility] Last Admin: 03/16/19 09:41 Dose: 100 mg Sodium Chloride (Normal Saline) 1,000 mls @ 75 mls/hr IV ASDIRECTED [facility] Lorazepam (Ativan) 0.5 mg PO Q4H PRN PRN Reason: Muscle Spasm Last Admin: 03/16/19 09:38 Dose: 0.5 mg Montelukast Sodium (Singulair) 10 mg PO DAILY [facility] Last Admin: 03/16/19 09:49 Dose: 10 mg Norgestimate-Ethinyl Estradiol [Ortho Tri-Cyclen 28 Table* *Own Med 1 tab PO DAILY [facility] Last Admin: 03/16/19 09:49 Dose: Not Given Ondansetron HCl (Zofran) 4 mg IV Q4H PRN PRN Reason: Nausea/Vomiting Oxycodone HCl (Oxycodone) 5 mg PO Q4H PRN PRN Reason: Pain Pantoprazole Sodium (Protonix Iv) 40 mg IV Q12H [facility] Last Admin: 03/16/19 05:31 Dose: 40 mg Polyethylene Glycol (Miralax) 17 gm PO DAILY PRN PRN Reason: Constipation Sodium Chloride (Saline Flush) 10 ml FLUSH ASDIRECTED PRN PRN Reason: Keep Vein Open Sucralfate (Carafate) 1 gm PO QIDACANDBED [facility] Last Admin: 03/16/19 07:47 Dose: 1 gm Sumatriptan Succinate (Sumatriptan) 100 mg PO DAILY PRN PRN Reason: HEADACHE Topiramate (Topamax) 300 mg PO BEDTIME [facility] Last Admin: 03/15/19 20:36 Dose: 300 mg Discontinued Medications Lidocaine HCl 60 ml/ Al (Hydroxide/Mg Hydroxide 360 ml) 0 ml PO ASDIRECTED PRN PRN Reason: PAIN Al Hydroxide/Mg Hydroxide 15 (ml/ Lidocaine HCl 15 ml) 0 ml PO ONETIME ONE Stop: 03/15/19 12:01 Last Admin: 03/15/19 11:25 Dose: 30 ml Diphenhydramine HCl (Benadryl) 25 mg IVPUSH ONETIME ONE Stop: 03/15/19 14:56 Last Admin: 03/15/19 15:00 Dose: 25 mg Hydromorphone HCl (Dilaudid) 1 mg IVPUSH ONETIME ONE Stop: 03/15/19 10:46 Last Admin: 03/15/19 11:07 Dose: 1 mg Hydromorphone HCl (Dilaudid) 2 mg PO Q4H PRN PRN Reason: Pain Last Admin: 03/16/19 05:34 Dose: 2 mg Lactated Ringer's (Ringers, Lactated) 1,000 mls @ 1,000 mls/hr IV BOLUS ONE Stop: 03/15/19 11:38 Last Admin: 03/15/19 11:09 Dose: 1,000 mls/hr Sodium Chloride (Normal Saline) 100 mls @ 3 mls/sec IV ASDIRECTED [facility] Last Admin: 03/15/19 15:31 Dose: 3 mls/sec Sodium Chloride (Normal Saline) 1,000 mls @ 125 mls/hr IV ASDIRECTED [facility] Last Admin: 03/16/19 09:39 Dose: 125 mls/hr Iopamidol (Isovue-300 (61%)) 100 ml IV . DIRECTED [facility] Last Admin: 03/15/19 15:32 Dose: 70 ml Ketorolac Tromethamine (Toradol) 30 mg IVPUSH ONETIME ONE Stop: 03/15/19 14:31 Last Admin: 03/15/19 14:44 Dose: 30 mg Ondansetron HCl (Zofran Odt) 4 mg PO ONETIME ONE Stop: 03/15/19 10:16 Last Admin: 03/15/19 10:36 Dose: 4 mg Ondansetron HCl (Zofran) 4 mg IVPUSH ONETIME ONE Stop: 03/15/19 12:23 Last Admin: 03/15/19 12:26 Dose: 4 mg Oxycodone/Acetaminophen (Percocet 325-5 Mg) 1 tab PO ONETIME STA Stop: 03/15/19 11:56 Last Admin: 03/15/19 12:15 Dose: 1 tab Pantoprazole Sodium (Protonix) 40 mg PO DAILY [facility] Last Admin: 03/15/19 12:16 Dose: 40 mg Sodium Chloride (Saline Flush) 10 ml FLUSH ONETIME ONE Stop: 03/15/19 14:53 Last Admin: 03/15/19 15:32 Dose: 10 ml Sucralfate (Carafate) 1 gm PO ONETIME ONE Stop: 03/15/19 11:33 Last Admin: 03/15/19 11:51 Dose: 1 gm - Exam General: Alert, Oriented, Cooperative, Mild Distress Lungs: Clear to Auscultation, Normal Respiratory Effort Cardiovascular: Regular Rate, Regular Rhythm, No Murmurs GI/Abdominal Exam: Soft, Non-Tender, No Organomegaly, No Distention Back Exam: CVA Tenderness (R), CVA Tenderness (L), Paraspinal Tenderness Extremities: Non-Tender, No Pedal Edema Sepsis Event Note - Evaluation Sepsis Screening Result: No Definite Risk - Focused Exam Vital Signs: Vital Signs Temp Pulse Resp BP Pulse Ox 03/16/19 07:20 100 03/16/19 07:00 97.1 F 87 16 104/71 100 03/16/19 03:00 96.9 F 80 16 100/60 98 03/16/19 01:16 99 03/15/19 23:00 96.9 F 79 16 100/62 99 Date Exam was Performed: 03/16/19 Time Exam was Performed: 10:00 - Problem List Review Problem List Initiated/Reviewed/Updated: Yes - My Orders Last 24 Hours: My Active Orders 03/15/19 14:26 Resuscitation Status Routine 03/15/19 15:40 Patient Status [ADT] Routine Ambulate [RC] QID Height and Weight [RC] DAILY Intake and Output [RC] QSHIFT Notify Provider Vital Signs [RC] ASDIRECTED Oxygen Therapy [RC] PRN Peripheral IV Care [RC] . DIRECTED Pulse Oximetry [RC] CONTINUOUS Up ad Margarita [RC] ASDIRECTED Up to Chair [RC] QID VTE/DVT Education [RC] Per Unit Routine Vital Signs [RC] Q4H Acetaminophen [Tylenol] 650 mg PO Q4H PRN Gabapentin [Neurontin] 100 mg PO BID LORazepam [Ativan] 0.5 mg PO Q4H PRN Ondansetron [Zofran] 4 mg IV Q4H PRN Polyethylene Glycol 3350 [MiraLAX] 17 gm PO DAILY PRN Sodium Chloride 0.9% [Saline Flush] 10 ml FLUSH ASDIRECTED PRN Peripheral IV Insertion Adult [OM.PC] Routine Sequential Compression Device [OM.PC] Per Unit Routine 03/15/19 16:00 Pantoprazole [ProTONIX IV] 40 mg IV Q12H SUMAtriptan 100 mg PO DAILY PRN 03/15/19 17:00 Sucralfate [Carafate] 1 gm PO QIDACANDBED 03/15/19 21:00 Topiramate [Topamax] 300 mg PO BEDTIME 03/15/19 Lunch Regular Diet [DIET] 03/16/19 09:00 DULoxetine [Cymbalta] 30 mg PO DAILY Montelukast [Singulair] 10 mg PO DAILY Norgestimate-Ethinyl Estradiol [Ortho Tri-Cyclen 28 Tablet] 1 tab PO DAILY buPROPion [Wellbutrin XL] 300 mg PO DAILY 03/16/19 09:58 oxyCODONE 5 mg PO Q4H PRN 03/16/19 10:00 Sodium Chloride 0.9% [Normal Saline] 1,000 ml IV ASDIRECTED - Plan Plan:: ASSESSMENT AND PLAN PERSISTENT NAUSEA WITH INTERMITTENT VOMITING -specific etiology not apparent despite extensive evaluation. May be related to underlying pain medication. CT scan chest abdomen pelvis showed no significant abnormalities to explain current symptoms. CRP remains within normal range and pro calcitonin also within normal range -Continue PPI and sucralfate -Discontinue oral Dilaudid -Oxycodone 5 mg p.o. every 4 hours as needed MID BACK AND FLANK PAIN-recurrent pain after discharge, again no specific etiology identified. Tenderness to palpation in the area of pain, she shows no limited range of motion or movement. Pain does not seem to be worsened by activity. CT scan of the thoracic spine obtained during last admission showed no abnormalities. CT scan of the chest shows no significant abnormalities -Physical therapy consult in a.m. -Oxycodone as above PERSISTENT HEMATURIA-there are some white cells in the urine, no other significant evidence of infection. Did with antibiotics during last hospitalization with no improvement in symptoms and mixed brandon on urine culture. CT scan abdomen pelvis shows no significant abnormalities kidneys, ureters, or bladder. -Out Patient appointment with urology Maintenance issues - - DVT prophylaxis -mechanical - GI prophylaxis -Protonix as above - Nutrition -regular diet - [place] catheter -not indicated ADMISSION STATUS-she will be admitted to observation status, expect no more than a 48-hour hospital stay for evaluation and management of symptoms and problems as outlined above. Disposition -I would anticipate discharge home after the hospital stay Primary care physician - Dr. Arina Gallego
[2019-03-16] MEDS: oxyCODONE 5 MG Tab PO PRN ×3 (10:52→23:10)
[2019-03-16] MEDS: Ondansetron 4 MG/2 ML SDV IV PRN ×2 (13:03→19:58)
[2019-03-16] MEDS ORDERED: Acetaminophen 650 MG Supp RECTAL PRN (14:31)
[2019-03-16] MEDS ORDERED: Scopolamine 1.5 MG Transdermal Patch TOP SCH (14:31)
[2019-03-16] MEDS: Topiramate 100 MG Tab PO SCH (21:28)
[2019-03-17] MEDS: Pantoprazole 40 MG Vial IV SCH (04:25)
[2019-03-17] MEDS: oxyCODONE 5 MG Tab PO PRN ×3 (04:30→13:19)
[2019-03-17] MEDS: LORazepam 0.5 MG Tab PO PRN ×2 (04:31→09:18)
[2019-03-17] MEDS: Sucralfate 1 GM Tab PO SCH ×2 (07:38→11:13)
[2019-03-17] MEDS: Ondansetron 4 MG/2 ML SDV IV PRN (07:44)
[2019-03-17] MEDS ORDERED: SCOPOLAMINE PATCH CHECK TOP SCH (09:00)
[2019-03-17] MEDS: DULoxetine 30 MG Cap PO SCH (09:04)
[2019-03-17] MEDS: Gabapentin 100 MG Cap PO SCH (09:05)
[2019-03-17] MEDS: Montelukast 10 MG Tab PO SCH (09:06)
[2019-03-17] MEDS: buPROPion 150 MG Tab.ER PO SCH (09:06)
[2019-03-17] MEDS: NORGESTIMATE ETHINYL ESTRADIOL PO SCH (09:06)
[2019-03-17] MEDS: Sodium Chloride 0.9% 1,000 ML IV SCH (10:14)
[2019-03-17] MEDS ORDERED: Benzonatate 100 MG Cap PO PRN (10:31)
[2019-03-17 11:07] VITALS: BP 99/64; PULSE 75
--- NOTE | 2019-03-17 11:11 | CR ---
CHEST: 2 view CLINICAL HISTORY:New cough COMPARISON:CT 03/15/2019 FINDINGS: The heart size, pulmonary vascular and hilar structures are normal. No infiltrate effusion or pneumothorax is seen. IMPRESSION: No acute cardiopulmonary process.
--- NOTE | 2019-03-17 12:46 | PCM.DCSUM1 ---
Discharge Summary - Hospital Course Brief History: Ms. Quinones is a 43-year-old woman who was admitted through the emergency department to observation status with recurrent flank and mid back pain as well as nausea and vomiting. - Discharge Data Discharge Date: 03/17/19 Discharge Disposition: Home, Self-Care 01 Condition: Fair - Referral to Home Health Primary Care Physician: Arina Gallego MD - Discharge Diagnosis/Problem(s) (1) Gastritis SNOMED Code(s): 3358567 ICD Code: K29.70 - GASTRITIS, UNSPECIFIED, WITHOUT BLEEDING Status: Acute Current Visit: Yes Qualifiers: Gastritis type: unspecified gastritis Chronicity: unspecified Gastritis bleeding: without bleeding Qualified Code(s): K29.70 - Gastritis, unspecified , without bleeding (2) Mild dehydration SNOMED Code(s): 6055484111115 ICD Code: E86.0 - DEHYDRATION Status: Acute Current Visit: Yes (3) Nausea and vomiting SNOMED Code(s): 84902074 ICD Code: R11.2 - NAUSEA WITH VOMITING, UNSPECIFIED Status: Acute Current Visit: Yes Qualifiers: Vomiting type: unspecified Vomiting Intractability: unspecified Qualified Code(s): R11.2 - Nausea with vomiting, unspecified (4) Acute thoracic back pain SNOMED Code(s): 824960655 ICD Code: M54.6 - PAIN IN THORACIC SPINE Status: Acute Current Visit: No Qualifiers: Back pain laterality: midline Qualified Code(s): M54.6 - Pain in thoracic spine (5) Bilateral flank pain SNOMED Code(s): 783265593 ICD Code: R10.9 - UNSPECIFIED ABDOMINAL PAIN Status: Acute Current Visit : No (6) UTI (urinary tract infection) SNOMED Code(s): 72206888 ICD Code: N39.0 - URINARY TRACT INFECTION, SITE NOT SPECIFIED Status: Acute Current Visit: No - Patient Summary/Data Consults: Consultations 03/16/19 10:06 Consult to Physical Therapy [PT Evaluation and Treatment] [CONS] Routine Please Evaluate and Treat. PT Reason for Consult: Muscular back pain This query below is only for informational purposes and is not editable. Admission Diagnosis/Problem: Pain Hospital Course: Ms. Quinones is a 43-year-old woman who was admitted through the emergency department observation status for further evaluation and management of persistent back and flank pain, nausea vomiting, and hematuria. She was initially hospitalized in early January with pyelonephritis, question of possible stone noted at that time. She was treated with appropriate course of antibiotics. She returned on 08 March with persistent pain, CT scan of the abdomen pelvis was unremarkable. She developed increased nausea and vomiting, EGD showed only mild gastritis. CT scan of the thoracic spine was also obtained showing no acute abnormalities to explain her symptoms. She was discharged home on the , initially did well but now over the past 2 days has had increase in her pain as well as nausea and vomiting. White cell count remains normal, she was mildly tachycardic, but afebrile. On admission she was given IV fluids for hydration as well as pain medication and medication as needed for nausea. CRP and procalcitonin were obtained and both were within normal range. CT scan of the chest abdomen and pelvis was obtained showing no significant abnormalities to explain her symptoms. She was noted to have tenderness to palpation in the mid back extending into the flank region but had no significant pain with activity or movement. Urinalysis was obtained at the time of admission, not show evidence of true infection. Because of recent pyelonephritis as well as recent urinary tract infection urine culture was obtained and did grow out yeast. During her hospital stay she was started on fluconazole 200 mg daily. She had some ongoing difficulty with nausea vomiting during the hospital stay and will be discharged home with lorazepam and scopolamine patch. Will hold on use of Zofran because of potential interactions with fluconazole. She will complete a 10-day course of fluconazole 200 mg daily. Was seen by physical therapy during the hospital stay. She will be discharged home with a very limited amount of oxycodone 5 mg every 4 hours as well as lorazepam. Because of her ongoing hematuria would recommend outpatient follow-up with urology. Activity will be as tolerated and she will resume her usual diet. Follow-up appointment will be scheduled with her primary care provider within 1 week. - Patient Instructions Diet: Usual Diet as Tolerated Activity: As Tolerated Other/Special Instructions: Follow-up appointment with primary care provider within 1 week - Discharge Plan *PRESCRIPTION DRUG MONITORING PROGRAM REVIEWED*: Yes *COPY OF PRESCRIPTION DRUG MONITORING REPORT IN PATIENT WHIT: No Prescriptions/Med Rec: Benzonatate [Tessalon Perle] 200 mg PO TID #20 capsule Fluconazole [Diflucan] 200 mg PO DAILY #9 tablet LORazepam 0.5 mg PO Q4H PRN #12 tab PRN Reason: Muscle Spasm oxyCODONE 5 mg PO Q4H PRN #12 tablet PRN Reason: Pain Scopolamine [Transderm-Scop] 1.5 mg TOP Q72H #3 patch Home Medications: Home Meds Cetirizine [ZyrTEC] 10 mg PO DAILY PRN 11/27/15 [History] Norgestimate-Ethinyl Estradiol [Ortho Tri-Cyclen 28 Tablet] 1 tab PO DAILY 11/26 [History] SUMAtriptan [Imitrex] 100 mg PO DAILY PRN 11/27/15 [History] Topiramate [Topamax] 300 mg PO BEDTIME 11/27/15 [History] buPROPion [Wellbutrin XL] 300 mg PO DAILY 11/27/15 [History] DULoxetine [Cymbalta] 30 mg PO DAILY 02/17/19 [History] Montelukast [Singulair] 10 mg PO DAILY 02/17/19 [History] Pantoprazole [ProTONIX] 40 mg PO DAILY #30 tab.cr 03/12/19 [Rx] Sucralfate [Carafate] 1 gm PO QID #120 tablet 03/12/19 [Rx] Benzonatate [Tessalon Perle] 200 mg PO TID #20 capsule 03/17/19 [Rx] Fluconazole [Diflucan] 200 mg PO DAILY #9 tablet 03/17/19 [Rx] LORazepam 0.5 mg PO Q4H PRN #12 tab 03/17/19 [Rx] Scopolamine [Transderm-Scop] 1.5 mg TOP Q72H #3 patch 03/17/19 [Rx] oxyCODONE 5 mg PO Q4H PRN #12 tablet 03/17/19 [Rx] Referrals: Arina Gallego MD [Primary Care Provider] - 03/20/19 1:30 pm (At [facility] - Discharge Summary/Plan Comment DC Time >30 min.: No - Patient Data Vitals - Most Recent: Last Vital Signs Temp 96.9 F 03/17/19 11:00 Pulse 75 03/17/19 11:00 Resp 18 03/17/19 11:00 BP 99/64 03/17/19 11:00 Pulse Ox 93 L 03/17/19 11:00 Weight - Most Recent: 93 lb 7.616 oz I&O - Last 24 hours: Intake & Output 03/16/19 03/17/19 03/17/19 22:59 06:59 14:59 Intake Total 1845 620 Output Total 750 900 200 Balance 1095 -900 420 ALVAREZ Results - Last 24 hrs: Microbiology 03/15/19 12:15 Urine Culture - Final Urine, Clean Catch YEAST Med Orders - Current: Current Medications Acetaminophen (Tylenol) 650 mg PO Q4H PRN PRN Reason: Pain (Mild 1-3)/fever Last Admin: 03/15/19 17:09 Dose: 650 mg Acetaminophen (Tylenol) 650 mg RECTAL Q4H PRN PRN Reason: Pain Benzonatate (Tessalon Perles) 200 mg PO TID PRN PRN Reason: Cough Bupropion HCl (Wellbutrin Xl) 300 mg PO DAILY [facility] Last Admin: 03/17/19 09:06 Dose: 300 mg Duloxetine HCl (Cymbalta) 30 mg PO DAILY [facility] Last Admin: 03/17/19 09:04 Dose: 30 mg Fluconazole (Diflucan) 200 mg PO DAILY [facility] Gabapentin (Neurontin) 100 mg PO BID [facility] Last Admin: 03/17/19 09:05 Dose: 100 mg Sodium Chloride (Normal Saline) 1,000 mls @ 75 mls/hr IV ASDIRECTED [facility] Last Admin: 03/17/19 10:14 Dose: 75 mls/hr Lorazepam (Ativan) 0.5 mg PO Q4H PRN PRN Reason: Muscle Spasm Last Admin: 03/17/19 09:18 Dose: 0.5 mg Montelukast Sodium (Singulair) 10 mg PO DAILY [facility] Last Admin: 03/17/19 09:06 Dose: 10 mg Norgestimate-Ethinyl Estradiol [Ortho Tri-Cyclen 28 Table* *Own Med 1 tab PO DAILY [facility] Last Admin: 03/17/19 09:06 Dose: Not Given Scopolamine Patch (Check) 1 each TOP DAILY [facility] Stop: 03/19/19 14:00 Last Admin: 03/17/19 09:05 Dose: 1 each Ondansetron HCl (Zofran) 4 mg IV Q4H PRN PRN Reason: Nausea/Vomiting Last Admin: 03/17/19 07:44 Dose: 4 mg Oxycodone HCl (Oxycodone) 5 mg PO Q4H PRN PRN Reason: Pain Last Admin: 03/17/19 09:16 Dose: 5 mg Pantoprazole Sodium (Protonix Iv) 40 mg IV Q12H [facility] Last Admin: 03/17/19 04:25 Dose: 40 mg Polyethylene Glycol (Miralax) 17 gm PO DAILY PRN PRN Reason: Constipation Scopolamine (Transderm-Scop) 1.5 mg TOP Q72H [facility] Stop: 03/19/19 13:00 Last Admin: 03/16/19 14:47 Dose: 1.5 mg Sodium Chloride (Saline Flush) 10 ml FLUSH ASDIRECTED PRN PRN Reason: Keep Vein Open Sucralfate (Carafate) 1 gm PO QIDACANDBED [facility] Last Admin: 03/17/19 11:13 Dose: 1 gm Sumatriptan Succinate (Sumatriptan) 100 mg PO DAILY PRN PRN Reason: HEADACHE Last Admin: 03/16/19 10:57 Dose: 100 mg Topiramate (Topamax) 300 mg PO BEDTIME [facility] Last Admin: 03/16/19 21:28 Dose: 300 mg Discontinued Medications Lidocaine HCl 60 ml/ Al (Hydroxide/Mg Hydroxide 360 ml) 0 ml PO ASDIRECTED PRN PRN Reason: PAIN Al Hydroxide/Mg Hydroxide 15 (ml/ Lidocaine HCl 15 ml) 0 ml PO ONETIME ONE Stop: 03/15/19 12:01 Last Admin: 03/15/19 11:25 Dose: 30 ml Diphenhydramine HCl (Benadryl) 25 mg IVPUSH ONETIME ONE Stop: 03/15/19 14:56 Last Admin: 03/15/19 15:00 Dose: 25 mg Hydromorphone HCl (Dilaudid) 1 mg IVPUSH ONETIME ONE Stop: 03/15/19 10:46 Last Admin: 03/15/19 11:07 Dose: 1 mg Hydromorphone HCl (Dilaudid) 2 mg PO Q4H PRN PRN Reason: Pain Last Admin: 03/16/19 05:34 Dose: 2 mg Lactated Ringer's (Ringers, Lactated) 1,000 mls @ 1,000 mls/hr IV BOLUS ONE Stop: 03/15/19 11:38 Last Admin: 03/15/19 11:09 Dose: 1,000 mls/hr Sodium Chloride (Normal Saline) 100 mls @ 3 mls/sec IV ASDIRECTED [facility] Last Admin: 03/15/19 15:31 Dose: 3 mls/sec Sodium Chloride (Normal Saline) 1,000 mls @ 125 mls/hr IV ASDIRECTED [facility] Last Admin: 03/16/19 09:39 Dose: 125 mls/hr Iopamidol (Isovue-300 (61%)) 100 ml IV . DIRECTED [facility] Last Admin: 03/15/19 15:32 Dose: 70 ml Ketorolac Tromethamine (Toradol) 30 mg IVPUSH ONETIME ONE Stop: 03/15/19 14:31 Last Admin: 03/15/19 14:44 Dose: 30 mg Ondansetron HCl (Zofran Odt) 4 mg PO ONETIME ONE Stop: 03/15/19 10:16 Last Admin: 03/15/19 10:36 Dose: 4 mg Ondansetron HCl (Zofran) 4 mg IVPUSH ONETIME ONE Stop: 03/15/19 12:23 Last Admin: 03/15/19 12:26 Dose: 4 mg Oxycodone/Acetaminophen (Percocet 325-5 Mg) 1 tab PO ONETIME STA Stop: 03/15/19 11:56 Last Admin: 03/15/19 12:15 Dose: 1 tab Pantoprazole Sodium (Protonix) 40 mg PO DAILY [facility] Last Admin: 03/15/19 12:16 Dose: 40 mg Sodium Chloride (Saline Flush) 10 ml FLUSH ONETIME ONE Stop: 03/15/19 14:53 Last Admin: 03/15/19 15:32 Dose: 10 ml Sucralfate (Carafate) 1 gm PO ONETIME ONE Stop: 03/15/19 11:33 Last Admin: 03/15/19 11:51 Dose: 1 gm - Exam General: Reports: Alert, Oriented, Cooperative, Mild Distress Lungs: Reports: Clear to Auscultation, Normal Respiratory Effort Cardiovascular: Reports: Regular Rate, Regular Rhythm, No Murmurs GI/Abdominal Exam: Soft, Non-Tender, No Organomegaly, No Distention Back Exam: Reports: CVA Tenderness (R), CVA Tenderness (L), Paraspinal Tenderness
[2019-03-17] MEDS ORDERED: Fluconazole 100 MG Tab PO SCH (13:00)
== END 2019-03-17 14:30 | disposition home or self-care (01) ==
LOC: JP.ED 10:12 → JP.MS 14:22
PROVIDERS: ADMIT Hospitalist; ATTEND Hospitalist
DX: K29.00 Acute gastritis without bleeding (principal); N39.0 Urinary tract infection, site not specified; E86.0 Dehydration; M54.6 Pain in thoracic spine; G43.909 Migraine, unspecified, not intractable, without status migrainosus; F32.9 Major depressive disorder, single episode, unspecified; J45.909 Unspecified asthma, uncomplicated; Z87.442 Personal history of urinary calculi; Z88.2 Allergy status to sulfonamides; Z88.5 Allergy status to narcotic agent; Z79.899 Other long term (current) drug therapy
CPT/HCPCS: 36415; 71046; 71260; 74177; 80048; 80305; 81001; 83690; 84145; 84703; 85025; 85027; 86140; 87086; 87088; 94762; 97140; 97161; 97535; A9270; C9113; J1170; J1200; J1885; J2405; J7030; J7050; J7120; Q9967; 99284

== ENCOUNTER 2019-04-06 16:04 | Emergency (ER) | payer MEDICAID ==
[2019-04-06] MEDS ORDERED: HYDROmorphone 0.5 MG/0.5 ML Syringe IVPUSH ONE (17:29)
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
[2019-04-06] MEDS ORDERED: Sodium Chloride 0.9% 1,000 ML IV SCH (17:30)
[2019-04-06] MEDS ORDERED: LORazepam 2 MG/ML SDV IVPUSH ONE (17:30)
--- NOTE | 2019-04-06 18:29 | CRLCR ---
HISTORY: Pain after fall onto deck 3 days ago. COMPARISON: CT of the chest, abdomen, and pelvis from 03/15/2019 FINDINGS: AP examination of the pelvis is performed in the AP projection with the hips in neutral and frogleg lateral positions for a total of two views. There is no sign of fracture or dislocation. There is no sign of displacement of the hips to suggest a joint effusion. Incidental note is made of unfused accessory ossification centers along the superior-lateral aspect of both acetabuli. The bony pelvis is normal in appearance. The bowel gas pattern is unremarkable. IMPRESSION: Normal examination of the pelvis and both hips with 2 views. Dictated by Omer Warren MD @ Apr 06 2019 6:24PM Signed by Dr. Omer Warren @ Apr 06 2019 6:28PM
[2019-04-06 18:43] VITALS: BP 117/78; PULSE 78
== END 2019-04-06 20:04 | disposition home or self-care (01) ==
LOC: JP.ED 16:04
DX: S70.02XA Contusion of left hip, initial encounter (principal); N30.90 Cystitis, unspecified without hematuria; Z79.899 Other long term (current) drug therapy; F32.9 Major depressive disorder, single episode, unspecified; Z90.49 Acquired absence of other specified parts of digestive tract; Z88.2 Allergy status to sulfonamides; Z88.6 Allergy status to analgesic agent; Z88.5 Allergy status to narcotic agent; Z87.891 Personal history of nicotine dependence; W01.198A Fall on same level from slipping, tripping and stumbling with subsequent striking against other object, initial encounter
CPT/HCPCS: 36415; 72170; 80053; 81001; 85025; 87086; 96361; 96374; 96375; 99284; 99284-25; J1170; J2060; J7030